=== PATIENT | male | born 1945 | race Caucasian/White ===

== ENCOUNTER 2016-09-12 09:05 | Inpatient (IN) | payer MEDICARE ==
[~2016-09-12] VITALS: Ht 182.9 cm; Wt 74.4 kg
[2016-09-12] VITALS (10 sets, daily range): BP systolic 114–143; BP diastolic 58–66
[~2016-09-12 09:05] MED LIST: BENZ0.5T3; BENZ0.5T3 PO; BENZTROPINE 0.5 MG; DOCU-161 PO; FIBER THERAPY; GLYB5TAB6; IRON18TA PO; LORA0.5T; LORA1TAB PO; METF-380; MTF500T; MULT-608; OMEG1CAP51 PO; OXB5T; PGLT30T; PIOG45TA; POLY17PO6 PO; RISP3TAB17; RISP3TAB3; RISP3TAB3 PO; SIMV20TA3; SIMV20TA3 PO; SITA1TBM7 PO; TRZ100T; ZLP10T; [UNRECOGNIZED DRUG - OTHER]; [UNRECOGNIZED DRUG - REMARK]
--- OUTSIDE RECORDS SUMMARY | 2016-09-12 09:09 | XMS REPORT | Continuity of Care Document ---
Author Author [facility] Organization [facility] Address Unknown Phone Unavailable Allergies Active Description Code Type Severity Reaction Onset Reported/Identified Relationship to Patient Clinical Status Yes No Known Drug Allergies [id number] Drug Allergy Unknown N/ A 10/23/2008 Medications Problems Date Dx Coded Attending Type Code Diagnosis Diagnosed By 06/27/2014 JULIO HANSON, MALINDA R Ot 250.00 06/27/2014 JULIO HANSON, MALINDA R Ot 295.90 06/27/2014 JULIO HANSON, MALINDA R Ot 560.32 06/27/2014 JULIO HANSON, MALINDA R Ot 564.00 06/27/2014 JULIO HANSON, MALINDA R Ot 788.20 06/27/2014 JULIO HANSON, MALINDA R Ot 250.00 06/27/2014 JULIO HANSON, MALINDA R Ot 295.90 06/27/2014 JULIO HANSON, MALINDA R Ot 560.32 06/27/2014 JULIO HANSON, MALINDA R Ot 564.00 06/27/2014 JULIO HANSON, MALINDA R Ot 788.20 07/17/2014 Ot 250.00 07/17/2014 Ot 250.00 07/17/2014 Ot 401.1 07/17/2014 JULIO HANSON, MALINDA R Ot 250.00 07/17/2014 JULIO HANSON, MALINDA R Ot 783.21 07/18/2014 WESTON HANSON, SARA Ot 250.00 07/18/2014 WESTON HANSON, SARA Ot 272.0 07/18/2014 WESTON HANSON, SARA Ot 455.0 07/18/2014 WESTON HANSON, SARA Ot 455.3 07/18/2014 WESTON HANSON, SARA Ot V58.69 07/18/2014 WESTON HANSON, SARA Ot V76.51 03/18/2015 HANH FRANKLIN APRN Ot 250.80 03/18/2015 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 Visit Date/Time Discharge Status Pt. Type Provider Facility Loc./Unit Complaint [id number] 11/28/2015 14:27:00 2015 17:13:00 DIS Emergency HANH FRANKLIN LABOR[employer] [facility] ER [id number] 03/18/2015 11:52:00 2014 14:10:00 DIS Emergency HANH FRANKLIN LABOR[employer] [facility] ER [id number] 07/18/2014 09:51:00 2013 12:30:00 DIS Outpatient SARA ONTIVEROS MD [facility] [id number] 07/17/2014 06:28:00 2013 23:59:59 CLS Outpatient SARA ONTIVEROS MD [facility] PREOP [id number] 06/26/2014 10:29:00 2013 09:25:00 DIS Inpatient MALINDA KIM MD Via [address] [id number] 04/12/2014 09:54:00 2013 23:59:59 CLS Outpatient MALINDA KIM MD [facility] LAB [id number] 04/27/2013 10:34:00 2012 23:59:59 CLS Outpatient MALINDA KIM MD [facility] LAB [id number] 09/12/2016 09:06:00 ACT Emergency KYUNG HANSON, REX Fitch [facility] ER FALL [id number] 12/18/2010 10:26:00 Document Registration [id number] 03/13/2010 10:18:00 Document Registration
[2016-09-12] MEDS ORDERED: NS IV 500 ML 500 ML IV ONE (09:12)
[2016-09-12 10:08] LABS: BASOPHILS % (AUTO) 0 % (0-10); EOSINOPHILS % (AUTO) 0 % (0-10); LYMPHOCYTES # (AUTO) 0.9 X 10^3 (1.0-4.0); LYMPHOCYTES % (AUTO) 6 % (12-44); MEAN CORPUSCULAR HEMOGLOBIN 31 PG (25-34); MEAN CORPUSCULAR HGB CONC 34 G/DL (32-36); MEAN CORPUSCULAR VOLUME 91 FL (80-99); MEAN PLATELET VOLUME 10.5 FL (7.4-10.4); MONOCYTES # (AUTO) 1.8 X 10^3 (0.0-1.0); MONOCYTES % (AUTO) 12 % (0-12); NEUTROPHILS # (AUTO) 12.6 X 10^3 (1.8-7.8); NEUTROPHILS % (AUTO) 83 % (42-75); PLATELET COUNT 228 10^3/uL (130-400); RED BLOOD COUNT 2.16 10^6/uL (4.35-5.85); RED CELL DISTRIBUTION WIDTH 14.4 % (10.0-14.5); WHITE BLOOD COUNT 15.3 10^3/uL (4.3-11.0)
[2016-09-12 10:28] LABS: BILIRUBIN,TOTAL 0.3 MG/DL (0.1-1.0); CALCIUM 8.5 MG/DL (8.5-10.1); CREATININE SERUM 1.65 MG/DL (0.60-1.30); POTASSIUM 4.3 MMOL/L (3.6-5.0); TOTAL PROTEIN 4.9 G/DL (6.4-8.2); hs C REACTIVE PROTEIN 3.39 MG/DL (0.00-0.50)
[2016-09-12 10:43] LABS: LYMPHOCYTES % (MANUAL) 8 %; NEUTROPHILS % (MANUAL) 87 %
--- NOTE | 2016-09-12 10:46 | Diagnostic Imaging Report ---
PROCEDURE: CT head without contrast. TECHNIQUE: Multiple contiguous axial images were obtained through the brain without the use of intravenous contrast. INDICATION: Fall EXAMINATION: CT brain without contrast 09/12/2016 COMPARISON: 03/18/2015 FINDINGS: There is diffuse atrophy. Chronic ischemic changes are noted in periventricular suspicion. No evidence for acute hemorrhage or infarct is seen. There is no mass, mass effect or midline shift. There is no hydrocephalus. Diffuse atrophy is noted. Partial opacification of the visualized sinuses is seen with complete opacification of the visualized left maxillary sinus similar to previous imaging. The opacification within the left maxillary sinus is somewhat hyperdense not consistent with fluid. Clinically correlate perhaps inspissated mucus or some hemorrhage or perhaps a chronic infectious etiology. The visualized mastoid air cells appear clear. IMPRESSION: 1. Chronic changes described. No acute intracranial process. 2. Sinus disease as noted above. Dictated by: Dictated on workstation # [id number]
--- NOTE | 2016-09-12 11:03 | ED General ---
General Chief Complaint: General Problems/Pain Stated Complaint: FALL Nursing Triage Note: c/o generalized weakness with frequent falls. Onset Tu. Nursing Sepsis Screen: No Definite Risk Source of Information: Patient Exam Limitations: No Limitations History of Present Illness Time Seen by Provider: 10:35 Initial Comments Here with report of generalized weakness and frequent falls. This is been going on for the last several days. He has a fall and hit his head from yesterday. There is old blood to the back of the head. He is also complaining of abdominal pain and has significant stomach pain problems frequently and has been taking a lot of antacids. Denies blood in his stool and denies change in stool color. Does report that he is increasingly weak and he falls each time he stands or feels like his done following time he stands. Complains of some left hip pain but is able to stand. Complains of pain to the lumbar region and back on the left side. Timing/Duration: 4-5 Days Severity: Moderate, Severe Associated Systoms: No Chest Pain, No Diaphoresis, No Fever/Chills, No Nausea/ Vomiting, Shortness of Air Weakness Allergies and Home Medications Allergies Coded Allergies: No Known Drug Allergies (Verified , 10/23/08) Home Medications Benztropine Mesylate 0.5 Mg Tablet 0.5 MG PO TID (Reported) Docusate Sodium 100 Mg Capsule 100 MG PO BID (Reported) Iron 18 Mg Tablet 28 MG PO DAILY (Reported) Lorazepam 1 Mg Tab 1 MG PO BID (Reported) [place]-3 Fatty Acids/Fish Oil 1 Each Capsule 1,000 MG PO BID (Reported) Polyethylene Glycol 3350 17 Gm Powd.pack #10 17 GM PO DAILY Prescribed by: HANH FRANKLIN on 11/28/15 8214 Risperidone 3 Mg Tablet 3 MG PO BID (Reported) Simvastatin 20 Mg Tablet 20 MG PO HS (Reported) Sitagliptin Phos/Metformin Hcl 1 Each Tbmp.24hr 1 TAB PO HS (Reported) Constitutional: see HPINo chills, No fever EENTM: no symptoms reportedNo nose congestion, No throat pain Respiratory: no symptoms reported Cardiovascular: no symptoms reported Gastrointestinal: abdominal pain (epigastric) constipationNo dysphagia, No hematemesis, No melena, No vomiting Genitourinary: no symptoms reportedNo dysuria, No hematuria, No pain Musculoskeletal: back pain joint pain Skin: see HPI lesions (abrasions to bilateral knees and toes of both feet.) Psychiatric/Neurological: Weakness Hematologic/Lymphatic: Anemia All Other Systems Reviewed Negative Unless Noted: Yes Past Rrqcnfl-[place] Hx Patient Social History Alcohol Use: Denies Use Recreational Drug Use: No Smoking Status: Never a Smoker Recent Foreign Travel: No Contact w/Someone Who Travel: No Recent Infectious Disease Expo: No Recent Hopitalizations: Yes Immunizations Up To Date Date of Influenza Vaccine: May 02, 2014 Surgeries HX Surgeries: Yes (LEFT ARM - FX REPAIR) Surgeries: Orthopedic Respiratory Hx Respiratory Disorders: No Cardiovascular Hx Cardiac Disorders: No Neurological Hx Neurological Disorders: No Reproductive System Hx Reproductive Disorders: No Genitourinary Hx Genitourinary Disorders: No Gastrointestinal Hx Gastrointestinal Disorders: Yes (Constipation) Musculoskeletal Hx Musculoskeletal Disorders: No Endocrine Hx Endocrine Disorders: Yes Endocrine Disorders: Diabetes, Non-Insulin dep HEENT HX ENT Disorders: No Cancer Hx Cancer: No Psychosocial Hx Psychiatric Problems: Yes Behavioral Health Disorders: Schizophrenia Integumentary HX Skin/Integumentary Disorder: No Blood Transfusions Hx Blood Disorders: No Reviewed Nursing Assessment Reviewed/Agree w Nursing PMH: Yes Family Medical History Significant Family History: No Pertinent Family Hx Family Medial History: Patient reports no known family medical history. Physical Exam Vital Signs Vital Sign - Last 12Hours 09/12/16 09:10 Temp 97.2 Pulse 110 Resp 16 B/P 96/57 Pulse Ox 98 O2 Delivery Room Air Capillary Refill : Less Than 3 Seconds General Appearance: No Apparent Distress WD/WN HEENT: PERRL/EOMI Pharynx Normal Neck: Full Range of Motion Non Tender Supple Respiratory: Lungs Clear Normal Breath Sounds Cardiovascular: Regular Rate, Rhythm No Murmur Gastrointestinal: Soft Distended Tenderness (global) Genital/Rectal: Heme Negative Stool Back: Normal Inspection No CVA Tenderness No Vertebral Tenderness Extremity: Non Tender No Calf Tenderness Neurologic/Psychiatric: Alert Oriented x3 No Motor/Sensory Deficits Skin: Warm/Dry Pallor Other (abrasions to both knees and noted on the outer aspect of toes bilateral.) Progress/Results/Core Measures Results/Orders Lab Results Laboratory Tests Test 09/12/16 10:00 09/12/16 12:00 Range/Units Alanine Aminotransferase (ALT/SGPT) 102 H 0-55 U/L Albumin 3.0 L 3.2-4.5 G/DL Alkaline Phosphatase 48 40-136 U/L Anion Gap 12 5-14 MMOL/L Aspartate Amino Transf (AST/SGOT) 98 H 5-34 U/L BUN/Creatinine Ratio 43 Basophils # (Auto) 0.0 0.0-0.1 10^3/uL Basophils (%) (Auto) 0 0-10 % Blood Morphology Comment NORMAL Blood Urea Nitrogen 71 H 7-18 MG/DL C-Reactive Protein High Sensitivity 3.39 H 0.00-0.50 MG/DL Calcium Level 8.5 8.5-10.1 MG/DL Carbon Dioxide Level 19 L 21-32 MMOL/L Chloride Level 107 98-107 MMOL/L Creatinine 1.65 H 0.60-1.30 MG/DL Eosinophils # (Auto) 0.0 0.0-0.3 10^3/uL Eosinophils (%) (Auto) 0 0-10 % Estimat Glomerular Filtration Rate 41 Glucose Level 253 H 70-105 MG/DL Hematocrit 20 *L 40-54 % Hemoglobin 6.6 *L 13.3-17.7 G/DL Lymphocytes # (Auto) 0.9 L 1.0-4.0 X 10^3 Lymphocytes % (Manual) 8 % Lymphocytes (%) (Auto) 6 L 12-44 % Mean Corpuscular Hemoglobin 31 25-34 PG Mean Corpuscular Hemoglobin Concent 34 32-36 G/DL Mean Corpuscular Volume 91 80-99 FL Mean Platelet Volume 10.5 H 7.4-10.4 FL Monocytes # (Auto) 1.8 H 0.0-1.0 X 10^3 Monocytes % (Manual) 5 % Monocytes (%) (Auto) 12 0-12 % Neutrophils # (Auto) 12.6 H 1.8-7.8 X 10^3 Neutrophils % (Manual) 87 % Neutrophils (%) (Auto) 83 H 42-75 % Platelet Count 228 130-400 10^3/uL Potassium Level 4.3 3.6-5.0 MMOL/L Red Blood Count 2.16 L 4.35-5.85 10^6/uL Red Cell Distribution Width 14.4 10.0-14.5 % Sodium Level 138 135-145 MMOL/L Total Bilirubin 0.3 0.1-1.0 MG/DL Total Protein 4.9 L 6.4-8.2 G/DL White Blood Count 15.3 H 4.3-11.0 10^3/uL Urine Bacteria NEGATIVE /HPF Urine Bilirubin NEGATIVE NEGATIVE Urine Casts NONE /LPF Urine Clarity CLEAR Urine Color YELLOW Urine Crystals NONE /LPF Urine Culture Indicated NO Urine Glucose (UA) 2+ H NEGATIVE Urine Ketones NEGATIVE NEGATIVE Urine Leukocyte Esterase NEGATIVE NEGATIVE Urine Mucus NEGATIVE /LPF Urine Nitrite NEGATIVE NEGATIVE Urine Protein 1+ H NEGATIVE Urine RBC RARE /HPF Urine RBC (Auto) NEGATIVE NEGATIVE Urine Specific [place] 1.005 L 1.016-1.022 Urine Squamous Epithelial Cells RARE /HPF Urine Urobilinogen NORMAL NORMAL MG/DL Urine WBC NONE /HPF Urine pH 6 5-9 My Orders Orders-REX TRACEY MD Cbc With Automated Diff (09/12/16 09:12) Comprehensive Metabolic Panel (09/12/16 09:12) Hs C Reactive Protein (09/12/16 09:12) Ua Culture If Indicated (09/12/16 09:12) Ct Head Wo (09/12/16 09:12) Saline Lock/Iv-Start (09/12/16 09:12) Ns Iv 500 Ml (Sodium Chloride 0.9%) (09/12/16 09:12) Manual Differential (09/12/16 10:00) Red Cells Leukocytes Reduced (09/12/16 10:27) Type And Screen (09/12/16 10:27) Ct Abdomen/Pelvis Wo (09/12/16 10:56) Pelvis (09/12/16 11:07) Chest 1 View, Ap/Pa Only (09/12/16 11:12) Medications Given in ED Current Medications Medications Dose Ordered Sig/Aron Route Start Time Stop Time Status Last Admin Dose Admin Sodium Chloride 500 ml @ 0 mls/hr Q0M ONCE IV 09/12/16 09:12 09/12/16 09:13 DC 09/12/16 10:42 0 MLS/HR Vital Signs/I&O Vital Sign - Last 12Hours 09/12/16 09:10 Temp 97.2 Pulse 110 Resp 16 B/P 96/57 Pulse Ox 98 O2 Delivery Room Air Blood Pressure Mean: 70 Progress Note : Progress Note Seen and evaluated. IV, labs and UA ordered. CT head ordered. X-ray of the chest and pelvis ordered. CT abdomen and pelvis ordered due to anemia and complaining of left-sided abdominal and left back pain. Monitor patient. Type and cross for 2 units to give. Hemoccult stool was negative. Patient has significant constipation. I did discuss the case with Dr. Rojas at 1206. He accepts patient for admission. We did review CT findings including rib fractures that appear more chronic than acute. Also discussed L1 transverse process fracture. We will admit the patient to a stepdown and have blood administration done there. Discussed with patient and family who agree with plan. Admit, inpatient status. I did discuss with Dr. Rojas related to rib fractures and questionable trauma consult. Patient is not tender in the area of ribs of concern and this does appear to be chronic and likely related to previous falls. Patient has history of multiple falls acutely and chronically. Diagnostic Imaging Diagonstic Imaging: CT Plain Films/CT/US/NM/MRI: abdomen, pelvis Comments [facility] [place], [place] NAME: [facility] REC#: [id number] PT STATUS: REG ER : 1945 PHYSICIAN: REX TRACEY MD ADMIT DATE: 09/12/16/ER Draft Date of Exam:09/12/16 CT ABDOMEN/PELVIS WO PROCEDURE: CT abdomen and pelvis without contrast. TECHNIQUE: Multiple contiguous axial images were obtained through the abdomen and pelvis without the use of intravenous contrast. INDICATION: Patient fell, pain, severe anemia. EXAMINATION: CT abdomen and pelvis without contrast 09/12/2016 COMPARISON: None available. Urinary bladder is markedly distended perhaps due to bladder outlet obstruction, clinical correlation is recommended. There is a large amount f stool throughout the colon especially within the rectosigmoid perhaps due to fecal impaction. Appendix is unremarkable without surrounding inflammatory change. There is no focal inflammatory change about the remaining bowel loops. The nonopacified abdominal viscera limited in evaluation. No gross acute abnormalities appreciated within the liver or spleen. The adrenal glands are unremarkable. The pancreas is atrophied. The stomach is distended and filled with fluid. The duodenal wall demonstrates wall thickening with adjacent questioned fat stranding. This predominantly involves the first and second portions of the duodenum. No adjacent free air is appreciated. There is no definite evidence for abscess although evaluation is limited due to the lack of contrast. There is no acute process noted in either kidney. There is diffuse atherosclerotic disease along course of the aorta. No free air or free fluid noted. Diffuse degenerative findings noted. There is a transverse process fracture on the left at L1 without significant displacement. A fracture of the adjacent left posterior 12th rib is nondisplaced but suspected. Possible nondisplaced fracture of the left 10th and/or 11th ribs posteriorly also noted. There are no compression deformities within the visualized spine. Remaining visualized osseous structures appear to be intact. No definite acute pelvic fracture seen however if there is focal pain dedicated CT pelvis using a bone algorithm technique would be recommended. Small bilateral pleural effusions are noted. The visualized lung bases limited in evaluation due to motion. No definite acute abnormalities appreciated. Minimal bibasal or dependent atelectasis is noted. IMPRESSION: 1. Acute appearing left transverse process fracture at L1 with adjacent left posterior lower rib fractures also noted but nondisplaced. 2. Mild bibasal dependent atelectasis with some very small bilateral pleural effusions left slightly larger than right. 3. Fat stranding about the duodenum. Given history of trauma, this could be due to posttraumatic change/contusion hematoma. Duodenitis could cause this appearance as well, clinical correlation and followup is recommended. 4. Findings of marked constipation. 5. Markedly dilated urinary bladder, correlate clinically for process such as a bladder outlet obstruction. Other incidental findings as discussed above. Dictated on workstation # [id number] Dict: 09/12/16 1119 Trans: 09/12/16 1133 [facility] [id number] Interpreted by: SHAWN GONSALVES MD Electronically signed by: [email or web address] Imaging: CT Plain Films/CT/US/NM/MRI: head Comments [facility]. [place], [place] NAME: [facility] REC#: [id number] PT STATUS: REG ER : 1945 PHYSICIAN: REX TRACEY MD ADMIT DATE: 09/12/16/ER Draft Date of Exam:09/12/16 CT HEAD WO PROCEDURE: CT head without contrast. TECHNIQUE: Multiple contiguous axial images were obtained through the brain without the use of intravenous contrast. INDICATION: Fall EXAMINATION: CT brain without contrast 09/12/2016 COMPARISON: 03/18/2015 FINDINGS: There is diffuse atrophy. Chronic ischemic changes are noted in periventricular suspicion. No evidence for acute hemorrhage or infarct is seen. There is no mass, mass effect or midline shift. There is no hydrocephalus. Diffuse atrophy is noted. Partial opacification of the visualized sinuses is seen with complete opacification of the visualized left maxillary sinus similar to previous imaging. The opacification within the left maxillary sinus is somewhat hyperdense not consistent with fluid. Clinically correlate perhaps inspissated mucus or some hemorrhage or perhaps a chronic infectious etiology. The visualized mastoid air cells appear clear. IMPRESSION: 1. Chronic changes described. No acute intracranial process. 2. Sinus disease as noted above. Dictated on workstation # [id number] Dict: 09/12/16 1032 Trans: 09/12/16 1046 [facility] [id number] Interpreted by: SHAWN GONSALVES MD Electronically signed by: Diagonstic Imaging: Xray Plain Films/CT/US/NM/MRI: chest Comments [facility] [place] [place] [facility] REC#: [id number] PT STATUS: REG ER : 1945 PHYSICIAN: REX TRACEY MD ADMIT DATE: 09/12/16/ER Draft Date of Exam:09/12/16 CHEST 1 VIEW, AP/PA ONLY EXAM: CHEST 1 VIEW, AP/PA ONLY INDICATION: Fall. COMPARISON: Chest radiograph 11/28/2015. FINDINGS: Normal heart size and pulmonary vascularity. Elevation of the right hemidiaphragm, increased since the prior exam. Chronic right rib fractures. No acute rib fractures. No focal pulmonary opacity, pleural effusion or pneumothorax. IMPRESSION: 1. No acute fractures identified. There are chronic right rib fractures. 2. Elevation of the right hemidiaphragm has progressed since the prior exam. Dictated on workstation # [id number] Dict: 09/12/16 1129 Trans: 09/12/16 1137 [facility] [id number] Interpreted by: VERNA COLLADO MD Electronically signed by: [email or web address] Imaging: Xray Plain Films/CT/US/NM/MRI: pelvis Comments [facility] [place] [place] [facility] REC#: [id number] PT STATUS: REG ER : 1945 PHYSICIAN: REX TRACEY MD ADMIT DATE: 09/12/16/ER Draft Date of Exam:09/12/16 PELVIS INDICATION: Fell, pain. EXAMINATION: Plain films of the pelvis 09/12/2016. FINDINGS: There is mild possible lucency noted in the suprapubic rami bilaterally. Correlation with recent CT performed the same date does demonstrate mild irregularity in that region although there is motion artifact. Correlate for any point tenderness. No adjacent soft tissue edema seen on CT. The remaining osseous structures appear intact. There are no dislocations. The visualized proximal femurs unremarkable. Findings of marked constipation in visualized abdomen. IMPRESSION: 1. Vague lucencies noted along the suprapubic rami bilaterally. See above discussion. If there is focal point tenderness, nondisplaced fractures are possible. The remaining pelvis is unremarkable. Dictated on workstation # [id number] Dict: 09/12/16 1128 Trans: 09/12/16 1134 KB [id number] Interpreted by: SHAWN GONSALVES MD Electronically signed by: Departure Communication Time/Spoke to Admitting Phy: 12:06 Impression Impression: Primary Impression: Profound anemia Qualified Code: D50.9 - Iron deficiency anemia, unspecified Additional Impressions: GI bleed Qualified Code: K92.2 - Gastrointestinal hemorrhage, unspecified Lumbar transverse process fracture Qualified Code: S32.008A - Other fracture of unspecified lumbar vertebra, initial encounter for closed fracture Fracture of ribs, multiple, closed Qualified Code: S22.43XA - Multiple fractures of ribs, bilateral, initial encounter for closed fracture Disposition: ADMITTED INPATIENT Condition: Stable Decision to Admit Reason: Admit from ER (General) Decision to Admit/Date: Sep 12, 2016 Time/Decision to Admit Time: 12:06 Departure-Patient Inst. Referrals: MALINDA KIM MD (PCP/Family) Primary Care Physician REX TRACEY MD Sep 12, 2016 11:03
--- NOTE | 2016-09-12 11:34 | Diagnostic Imaging Report ---
INDICATION: Fell, pain. EXAMINATION: Plain films of the pelvis 09/12/2016. FINDINGS: There is mild possible lucency noted in the suprapubic rami bilaterally. Correlation with recent CT performed the same date does demonstrate mild irregularity in that region although there is motion artifact. Correlate for any point tenderness. No adjacent soft tissue edema seen on CT. The remaining osseous structures appear intact. There are no dislocations. The visualized proximal femurs unremarkable. Findings of marked constipation in visualized abdomen. IMPRESSION: 1. Vague lucencies noted along the suprapubic rami bilaterally. See above discussion. If there is focal point tenderness, nondisplaced fractures are possible. The remaining pelvis is unremarkable. Dictated by: Dictated on workstation # [id number]
--- NOTE | 2016-09-12 11:34 | Diagnostic Imaging Report ---
PROCEDURE: CT abdomen and pelvis without contrast. TECHNIQUE: Multiple contiguous axial images were obtained through the abdomen and pelvis without the use of intravenous contrast. INDICATION: Patient fell, pain, severe anemia. EXAMINATION: CT abdomen and pelvis without contrast 09/12/2016 COMPARISON: None available. Urinary bladder is markedly distended perhaps due to bladder outlet obstruction, clinical correlation is recommended. There is a large amount f stool throughout the colon especially within the rectosigmoid perhaps due to fecal impaction. Appendix is unremarkable without surrounding inflammatory change. There is no focal inflammatory change about the remaining bowel loops. The nonopacified abdominal viscera limited in evaluation. No gross acute abnormalities appreciated within the liver or spleen. The adrenal glands are unremarkable. The pancreas is atrophied. The stomach is distended and filled with fluid. The duodenal wall demonstrates wall thickening with adjacent questioned fat stranding. This predominantly involves the first and second portions of the duodenum. No adjacent free air is appreciated. There is no definite evidence for abscess although evaluation is limited due to the lack of contrast. There is no acute process noted in either kidney. There is diffuse atherosclerotic disease along course of the aorta. No free air or free fluid noted. Diffuse degenerative findings noted. There is a transverse process fracture on the left at L1 without significant displacement. A fracture of the adjacent left posterior 12th rib is nondisplaced but suspected. Possible nondisplaced fracture of the left 10th and/or 11th ribs posteriorly also noted. There are no compression deformities within the visualized spine. Remaining visualized osseous structures appear to be intact. No definite acute pelvic fracture seen however if there is focal pain dedicated CT pelvis using a bone algorithm technique would be recommended. Small bilateral pleural effusions are noted. The visualized lung bases limited in evaluation due to motion. No definite acute abnormalities appreciated. Minimal bibasal or dependent atelectasis is noted. IMPRESSION: 1. Acute appearing left transverse process fracture at L1 with adjacent left posterior lower rib fractures also noted but nondisplaced. 2. Mild bibasal dependent atelectasis with some very small bilateral pleural effusions left slightly larger than right. 3. Fat stranding about the duodenum. Given history of trauma, this could be due to posttraumatic change/contusion hematoma. Duodenitis could cause this appearance as well, clinical correlation and followup is recommended. 4. Findings of marked constipation. 5. Markedly dilated urinary bladder, correlate clinically for process such as a bladder outlet obstruction. Other incidental findings as discussed above. Dictated by: Dictated on workstation # [id number]
--- NOTE | 2016-09-12 11:37 | Diagnostic Imaging Report ---
EXAM: CHEST 1 VIEW, AP/PA ONLY INDICATION: Fall. COMPARISON: Chest radiograph 11/28/2015. FINDINGS: Normal heart size and pulmonary vascularity. Elevation of the right hemidiaphragm, increased since the prior exam. Chronic right rib fractures. No acute rib fractures. No focal pulmonary opacity, pleural effusion or pneumothorax. IMPRESSION: 1. No acute fractures identified. There are chronic right rib fractures. 2. Elevation of the right hemidiaphragm has progressed since the prior exam. Dictated by: Dictated on workstation # [id number]
[2016-09-12 12:11] LABS: BILIRUBIN,URINE NEGATIVE (NEGATIVE); KETONES,URINE NEGATIVE (NEGATIVE); LEUKOCYTE ESTERASE ,URINE NEGATIVE (NEGATIVE); NITRITE,URINE NEGATIVE (NEGATIVE); PH,URINE 6 (5-9); PROTEIN,URINE 1+ (NEGATIVE); UROBILINOGEN,URINE NORMAL (NORMAL)
[2016-09-12 12:18] LABS: SQUAMOUS EPITHELIAL CELL,UR RARE /HPF
[2016-09-12] MEDS ORDERED: PANTOPRAZOLE 40 MG/10 ML (PROTONIX) VIAL IV NR (13:00)
[2016-09-12] MEDS ORDERED: CATHETER FLUSH 10 ML SYR IV PRN (13:15)
[2016-09-12] MEDS ORDERED: NS IV 500 ML 500 ML ONE (13:28)
[2016-09-12] MEDS: CATHETER FLUSH 10 ML SYR IV SCH ×2 (13:39→20:08)
[2016-09-12] MEDS: NS IV 1000 ML 1,000 ML IV SCH (13:45)
[2016-09-12] MEDS: inSUlin (REGULAR) HUMAN 1 UNIT/0.01 ML (CHARGE PER UNIT) SC SCH ×2 (15:52→20:07)
[2016-09-12] MEDS: BENZTROPINE MESYLATE 1 MG (COGENTIN) TAB PO SCH (20:07)
[2016-09-12] MEDS: PANTOPRAZOLE 40 MG/10 ML (PROTONIX) VIAL IV SCH (20:07)
[2016-09-12] MEDS: LORazepam 1 MG (ATIVAN) TAB PO SCH (20:07)
[2016-09-12] MEDS: sitaGLIPtin 50 MG (JANUVIA) TAB PO SCH (20:08)
[2016-09-12] MEDS: risperiDONE 1 MG (RisperDAL) TAB PO SCH (20:08)
[2016-09-12] MEDS ORDERED: risperiDONE 2 MG (RisperDAL) TAB PO SCH (21:00)
[2016-09-12] MEDS ORDERED: SUCCINYLCHOLINE INJ 100 MG/5 ML SYR INJ ONE (23:59)
[2016-09-12] MEDS ORDERED: ETOMIDATE IV SOLN 20 MG/10 ML VIAL IV ONE (23:59)
[2016-09-13] VITALS (12 sets, daily range): BP systolic 108–135; BP diastolic 54–69
[2016-09-13] MEDS: NS IV 1000 ML 1,000 ML IV SCH ×2 (02:00→16:34)
[2016-09-13 03:51] LABS: BASOPHILS % (AUTO) 0 % (0-10); EOSINOPHILS # (AUTO) 0.1 10^3/uL (0.0-0.3); EOSINOPHILS % (AUTO) 1 % (0-10); LYMPHOCYTES # (AUTO) 1.5 X 10^3 (1.0-4.0); LYMPHOCYTES % (AUTO) 12 % (12-44); MEAN CORPUSCULAR HEMOGLOBIN 30 PG (25-34); MEAN CORPUSCULAR HGB CONC 34 G/DL (32-36); MEAN CORPUSCULAR VOLUME 89 FL (80-99); MEAN PLATELET VOLUME 10.6 FL (7.4-10.4); MONOCYTES # (AUTO) 1.5 X 10^3 (0.0-1.0); MONOCYTES % (AUTO) 11 % (0-12); NEUTROPHILS % (AUTO) 76 % (42-75); PLATELET COUNT 199 10^3/uL (130-400); RED BLOOD COUNT 2.69 10^6/uL (4.35-5.85); RED CELL DISTRIBUTION WIDTH 15.8 % (10.0-14.5); WHITE BLOOD COUNT 13.1 10^3/uL (4.3-11.0)
[2016-09-13 04:15] LABS: ALBUMIN 2.8 G/DL (3.2-4.5); BILIRUBIN,TOTAL 0.4 MG/DL (0.1-1.0); CALCIUM 8.1 MG/DL (8.5-10.1); CREATININE SERUM 1.57 MG/DL (0.60-1.30); POTASSIUM 4.1 MMOL/L (3.6-5.0); TOTAL PROTEIN 4.5 G/DL (6.4-8.2)
[2016-09-13 04:35] LABS: BAND NEUTROPHILS 7 %; EOSINOPHILS % (MANUAL) 1 %; LYMPHOCYTES % (MANUAL) 11 %; NEUTROPHILS % (MANUAL) 73 %
[2016-09-13 05:39] LABS: PHOSPHORUS 2.7 MG/DL (2.3-4.7)
[2016-09-13] MEDS: CATHETER FLUSH 10 ML SYR IV SCH ×3 (06:00→22:00)
[2016-09-13] MEDS: inSUlin (REGULAR) HUMAN 1 UNIT/0.01 ML (CHARGE PER UNIT) SC SCH ×4 (06:37→21:02)
[2016-09-13] MEDS: PANTOPRAZOLE 40 MG/10 ML (PROTONIX) VIAL IV SCH ×2 (08:52→21:03)
[2016-09-13] MEDS: BENZTROPINE MESYLATE 1 MG (COGENTIN) TAB PO SCH ×2 (08:53→21:03)
[2016-09-13] MEDS: risperiDONE 1 MG (RisperDAL) TAB PO SCH ×2 (08:53→21:03)
[2016-09-13] MEDS: LORazepam 1 MG (ATIVAN) TAB PO SCH ×2 (08:53→21:03)
--- NOTE | 2016-09-13 09:02 | Diagnostic Imaging Report ---
EXAM: CHEST 1 VIEW, AP/PA ONLY INDICATION: Fall. COMPARISON: Chest radiograph 09/12/2016. FINDINGS: Normal heart size and pulmonary vascularity. Elevation of the right hemidiaphragm is less prominent today. No focal pulmonary opacity, pleural effusion or pneumothorax. Chronic right rib fractures. No acute rib fractures. IMPRESSION: No acute cardiopulmonary findings. Dictated by: Dictated on workstation # [id number]
[2016-09-13] MEDS ORDERED: POLYETHYLENE GLYCOL 17 GM (MIRALAX) PACK PO NR (10:30)
[2016-09-13] MEDS ORDERED: SENNA W/DOCUSATE (SENOKOT S) TABLET PO NR (10:30)
--- NOTE | 2016-09-13 10:34 | History & Physical-Hospitalist ---
HPI History of Present Illness: HPI/Chief Complaint the patient is a 70-year-old white male who is a very poor historian. Additional history is obtained from caregiver who is the bedside. He is alert and pleasant but apparently has been falling reporting increased weakness and fatigue over the past several weeks. He is apparently been having increased abdominal pain at least partially relieved by antacids. He has chronic problems with constipation but could not tell me whether or not he is noted any melena or bright red blood per rectum. He does believe that he has had ulcers in the past. He does not recall whether or not he's had any bleeding issues. He did undergo colonoscopy 2 years ago that revealed diverticular disease was not done for bleeding but he did have anemia at the time no potential bleeding sites were identified. He was having constipation problems at that time. He denies chills fever or night sweats and is had no nausea vomiting or hematemesis. He denies difficulty swallowing and denies intestinal cramping.he also denies odynophagia. Date Seen 09/13/16 Attending Physician Vale Cline MD PCP Toño Fung MD Referring Physician Date of Admission Sep 12, 2016 at 12:36 Home Medications & Allergies Home Medications Reviewed patient Home Medication Reconciliation Form Allergies Coded Allergies: No Known Drug Allergies (Verified , 10/23/08) Past Saybivl-Dlmhnh-Rssfzp Hx Patient Social History Alcohol Use: Denies Use Recreational Drug Use: No Smoking Status: Never a Smoker Physical Abuse Screen: No Sexual Abuse: No Recent Foreign Travel: No Contact w/other who traveled: No Recent Hopitalizations: Yes Recent Infectious Disease Expo: No Immunizations Up To Date Date of Influenza Vaccine: May 02, 2016 Seasonal Allergies Seasonal Allergies: No Surgeries HX Surgeries: Yes (LEFT ARM - FX REPAIR) Surgeries: Orthopedic Respiratory Hx Respiratory Disorders: No Cardiovascular Hx Cardiovascular Disorders: No Neurological Hx Neurological Disorders: No Reproductive System Hx Reproductive Disorders: No Genitourinary Hx Genitourinary Disorders: No Genitourinary Disorders: UTI-Chronic Gastrointestinal Hx Gastrointestinal Disorders: Yes (Constipation) Musculoskeletal Hx Musculoskeletal Disorders: No Endocrine Hx Endocrine Disorders: Yes Endocrine Disorders: Diabetes, Non-Insulin dep HEENT HX ENT Disorders: No Cancer Hx Cancer: No Psychosocial Hx Psychiatric Problems: Yes Behavioral Health Disorders: Anxiety, Schizophrenia Integumentary HX Skin/Integumentary Disorder: No Blood Transfusions Hx Blood Disorders: No Adverse Reaction to a Blood Tr: No Reviewed Nursing Assessment Reviewed/Agree w Nursing PMH: Yes Family Medical History Significant Family History: No Pertinent Family Hx Family Hx: Patient reports no known family medical history. Review of Systems Constitutional: see HPI Gastrointestinal: see HPI Musculoskeletal: back pain (lumbar after one of the falls he sustained in the past week. He denies radicular component to this.) Physical Exam Physical Exam Vital Signs Vital Sign - Last 12Hours 09/12/16 09:10 Temp 97.2 Pulse 110 Resp 16 B/P 96/57 Pulse Ox 98 O2 Delivery Room Air Capillary Refill : Less Than 3 Seconds General Appearance: No Apparent Distress Anxious Chronically ill Respiratory: Chest Non Tender Lungs Clear Normal Breath Sounds No Accessory Muscle Use No Respiratory Distress Cardiovascular: Regular Rate, Rhythm No Edema No Gallop No JVD No Murmur Normal Peripheral Pulses Gastrointestinal: Normal Bowel Sounds No Organomegaly No Pulsatile Mass Non Tender Soft Distended (mild) Rectal: Deferred Back: Other (mild upper lumbar discomfort to palpation) Extremity: Normal Capillary Refill Normal Inspection Normal Range of Motion Non Tender Neurologic/Psychiatric: Alert Skin: Pallor Results Results/Procedures Lab Laboratory Tests 09/12/16 10:00 09/12/16 20:43 09/13/16 03:42 Assessment/Plan Admission Diagnosis 1. Upper GI bleed with CT findings duodenal ulcer is likely I suspect bleeding has ceased we'll give another 2 units of packed cells repeat an H&H in the morning and is stable we will likely discharge to perform an EGD Wednesday. We'll continue proton pump inhibitor therapy and avoid aspirin and nonsteroidal therapy. 2. Chronic constipation will initiate Senokot S and MiraLAX. 3. Opacification of left maxillary sinus without history or physical exam findings to suggest sinusitis either chronic retention cyst or more acute trauma with hemorrhage is more likely monitor conservatively for now. 4. Schizophrenia continue baseline antipsychotic therapy. Copy Copies To 1: TOÑO FUNG MD Clinical Quality Measures DVT/VTE Risk/Contraindication: Risk Factor Score Per Nursin RFS Level Per Nursing on Admit: 4+=Very High VALE CLINE MD Sep 13, 2016 10:34
[2016-09-13] MEDS: sitaGLIPtin 50 MG (JANUVIA) TAB PO SCH (21:03)
[2016-09-13] MEDS: SENNA W/DOCUSATE (SENOKOT S) TABLET PO SCH (21:04)
[2016-09-13] MEDS: POLYETHYLENE GLYCOL 17 GM (MIRALAX) PACK PO SCH (21:04)
[2016-09-14] VITALS (9 sets, daily range): BP systolic 92–122; BP diastolic 39–66
[2016-09-14 02:36] LABS: BASOPHILS # (AUTO) 0.2 10^3/uL (0.0-0.1); BASOPHILS % (AUTO) 1 % (0-10); EOSINOPHILS # (AUTO) 0.3 10^3/uL (0.0-0.3); EOSINOPHILS % (AUTO) 1 % (0-10); LYMPHOCYTES % (AUTO) 16 % (12-44); MEAN CORPUSCULAR HEMOGLOBIN 31 PG (25-34); MEAN CORPUSCULAR HGB CONC 35 G/DL (32-36); MEAN CORPUSCULAR VOLUME 89 FL (80-99); MEAN PLATELET VOLUME 10.6 FL (7.4-10.4); MONOCYTES # (AUTO) 2.2 X 10^3 (0.0-1.0); MONOCYTES % (AUTO) 12 % (0-12); NEUTROPHILS # (AUTO) 13.4 X 10^3 (1.8-7.8); NEUTROPHILS % (AUTO) 71 % (42-75); PLATELET COUNT 181 10^3/uL (130-400); RED BLOOD COUNT 2.17 10^6/uL (4.35-5.85); RED CELL DISTRIBUTION WIDTH 15.3 % (10.0-14.5)
[2016-09-14 02:53] LABS: CALCIUM 7.4 MG/DL (8.5-10.1); CREATININE SERUM 1.61 MG/DL (0.60-1.30); POTASSIUM 4.3 MMOL/L (3.6-5.0)
[2016-09-14] MEDS: NS IV 1000 ML 1,000 ML IV SCH ×2 (05:45→08:22)
[2016-09-14] MEDS: CATHETER FLUSH 10 ML SYR IV SCH ×3 (06:00→20:32)
[2016-09-14] MEDS: inSUlin (REGULAR) HUMAN 1 UNIT/0.01 ML (CHARGE PER UNIT) SC SCH ×4 (06:00→19:30)
[2016-09-14 08:15] LABS: MEAN PLATELET VOLUME 9.9 FL (7.4-10.4); RED BLOOD COUNT 2.95 10^6/uL (4.35-5.85); RED CELL DISTRIBUTION WIDTH 14.7 % (10.0-14.5); WHITE BLOOD COUNT 14.8 10^3/uL (4.3-11.0)
[2016-09-14] MEDS: PANTOPRAZOLE 40 MG/10 ML (PROTONIX) VIAL IV SCH (08:16)
[2016-09-14] MEDS: BENZTROPINE MESYLATE 1 MG (COGENTIN) TAB PO SCH ×2 (08:16→20:31)
[2016-09-14] MEDS: LORazepam 1 MG (ATIVAN) TAB PO SCH ×2 (08:16→20:31)
[2016-09-14] MEDS: risperiDONE 1 MG (RisperDAL) TAB PO SCH ×2 (08:16→20:31)
[2016-09-14] MEDS: SENNA W/DOCUSATE (SENOKOT S) TABLET PO SCH ×2 (08:19→20:31)
--- NOTE | 2016-09-14 08:50 | Progress Note-Hospitalist ---
Subjective HPI/CC On Admission the patient is a 70-year-old white male who is a very poor historian. Additional history is obtained from caregiver who is the bedside. He is alert and pleasant but apparently has been falling reporting increased weakness and fatigue over the past several weeks. He is apparently been having increased abdominal pain at least partially relieved by antacids. He has chronic problems with constipation but could not tell me whether or not he is noted any melena or bright red blood per rectum. He does believe that he has had ulcers in the past. He does not recall whether or not he's had any bleeding issues. He did undergo colonoscopy 2 years ago that revealed diverticular disease was not done for bleeding but he did have anemia at the time no potential bleeding sites were identified. He was having constipation problems at that time. He denies chills fever or night sweats and is had no nausea vomiting or hematemesis. He denies difficulty swallowing and denies intestinal cramping.he also denies odynophagia. Date Seen 09/14/16 Subjective/Events-last exam The patient had been doing well up until around 2 a.m. when I was notified by nursing staff that he had a presyncopal event with diaphoresis while attempting to urinate at the bedside commode. He was tachycardic and hypotensive with pallor. An H&H was obtained and it was back down to the mid 6 range. He received a fluid bolus in order for 2 units of packed cells which were administered with resolution of tachycardia and improvement in systolic blood pressure back over 90 with mean arterial pressures back over 65. Patient denies abdominal pain and there had been no reported bowel movements. He has a long-standing history of chronic constipation. I did discuss his case with Dr. Boswell who is in the endoscopy lab. He will be taking the patient for upper endoscopy later this morning considering his symptoms and CT scanning bleeding duodenal ulcer is high on the differential diagnostic list. Objective Exam Vital Signs Vital Sign - Last 12Hours 09/12/16 09:10 Temp 97.2 Pulse 110 Resp 16 B/P 96/57 Pulse Ox 98 O2 Delivery Room Air Capillary Refill : Less Than 3 Seconds General Appearance: Anxious Respiratory: Lungs Clear Normal Breath Sounds No Accessory Muscle Use No Respiratory Distress Cardiovascular: Regular Rate, Rhythm No Edema No Gallop No JVD No Murmur Normal Peripheral Pulses Other (Heart rate 92 and regular) Gastrointestinal: Normal Bowel Sounds Other (Mild distention abdomen is soft there is no tenderness to palpation.) Results/Procedures Lab Laboratory Tests 09/14/16 02:27 09/14/16 08:05 Assessment/Plan Assessment and Plan Assess & Plan/Chief Complaint 1. Recurrent upper GI bleed despite twice a day proton pump inhibitor therapy. Dr. Boswell has been consulted and will be performing upper endoscopy later today. Currently the patient is hemodynamically stable and after 2 units of packed cells H&H's back up to 8.8 we'll repeat another H&H in 2 hours. VALE CLINE MD Sep 14, 2016 08:50
[2016-09-14] MEDS ORDERED: MIDAZOLAM 2 MG/2 ML (VERSED) VIAL ONE (09:07)
[2016-09-14] MEDS ORDERED: fentaNYL INJECTION 100 MCG/2 ML AMP ONE (09:07)
[2016-09-14] MEDS ORDERED: NALOXONE 0.4 MG/ML 1 ML (NARCAN) VIAL ONE (09:13)
[2016-09-14] MEDS ORDERED: FLUMAZENIL (ROMAZICON) 0.1 MG/ML 5 ML VIAL ONE (09:13)
[2016-09-14] MEDS ORDERED: EPINEPHrine INJECTION 1 MG/ML AMP ONE (09:27)
--- NOTE | 2016-09-14 10:03 | Pre-Op Note & Conscious Sedat ---
Pre-Operative Progress Note H&P Reviewed The H&P was reviewed, patient examined and no changes noted. Date H&P Reviewed: Sep 14, 2016 Time H&P Reviewed: 09:10 Pre-Op Diagnosis: upper GI bleeding Conscious Sedation Pre-Proced ASA Class: 3 Airway Mallampati Classification: ([place] appropriate class) I. II. III, IV Lungs Heart ASA score ASA 1: a normal healthy patient ASA 2: a patient with a mild systemic disease (mid diabetes, controlled hypertension, obesity ASA 3: a patient with a severe systemic disease that limits activity (angina , COPD, prior Myocardial infarction) ASA 4: a patient with an incapacitating disease that is a constant threat to life (CHF, renal failure) ASA 5: a moribund patient not expected to survive 24 hrs. (ruptured aneurysm) ASA 6: a declared brain patient whose organs are being harvested. For emergent operations, add the letter E after the classification Grade 2 Sedation Plan: Discussed options with patient/fam Note The patient is an appropriate candidate to undergo the planned procedure, sedation, and anesthesia. The patient immediately re-assessed prior to indication. PHUONG RODRIGUEZ MD Sep 14, 2016 10:03
--- NOTE | 2016-09-14 10:04 | Progress Note-Post Operative ---
Post-Operative Progess Note Pre-Operative Diagnosis upper GI bleeding Post-Operative Diagnosis tortuous esophagus with a Schatzki ring Distal gastritis 15 mm chronic duodenal ulcer at the bulb with oozing Post-Op Procedure Note Date of Procedure: Sep 14, 2016 Name of Procedure: EGD with antral biopsy Sclerotherapy with epinephrine Anesthesia Type sedation Specimen(s) collected antral mucosa PHUONG RODRIGUEZ MD Sep 14, 2016 10:04
[2016-09-14] MEDS ORDERED: CIPR500T4 PO (10:11)
[2016-09-14] MEDS ORDERED: GLIP10TA13 PO (10:11)
[2016-09-14] MEDS ORDERED: EPINEPHrine INJECTION 1 MG/ML AMP IV PRN (10:45)
[2016-09-14] MEDS ORDERED: MIDAZOLAM 2 MG/2 ML (VERSED) VIAL IM ONE (10:45)
[2016-09-14 11:20] LABS: MEAN PLATELET VOLUME 10.5 FL (7.4-10.4); RED BLOOD COUNT 2.99 10^6/uL (4.35-5.85); RED CELL DISTRIBUTION WIDTH 14.8 % (10.0-14.5); WHITE BLOOD COUNT 15.2 10^3/uL (4.3-11.0)
[2016-09-14] MEDS: PANTOPRAZOLE INJECTION 200 MG in NS (IVPB) 50 ML IV SCH (13:51)
[2016-09-14] MEDS ORDERED: MAGNESIUM CITRATE 300 ML BTL PO NR (19:00)
[2016-09-14] MEDS: sitaGLIPtin 50 MG (JANUVIA) TAB PO SCH (20:31)
[2016-09-14] MEDS: POLYETHYLENE GLYCOL 17 GM (MIRALAX) PACK PO SCH (20:32)
[2016-09-15] VITALS: BP 97/58
[2016-09-15 04:00] VITALS: BP 120/63
[2016-09-15 04:12] LABS: BASOPHILS # (AUTO) 0.1 10^3/uL (0.0-0.1); BASOPHILS % (AUTO) 1 % (0-10); EOSINOPHILS # (AUTO) 0.3 10^3/uL (0.0-0.3); EOSINOPHILS % (AUTO) 2 % (0-10); LYMPHOCYTES # (AUTO) 1.5 X 10^3 (1.0-4.0); LYMPHOCYTES % (AUTO) 10 % (12-44); MEAN CORPUSCULAR HEMOGLOBIN 30 PG (25-34); MEAN CORPUSCULAR HGB CONC 33 G/DL (32-36); MEAN CORPUSCULAR VOLUME 89 FL (80-99); MONOCYTES # (AUTO) 1.5 X 10^3 (0.0-1.0); MONOCYTES % (AUTO) 10 % (0-12); NEUTROPHILS # (AUTO) 11.2 X 10^3 (1.8-7.8); NEUTROPHILS % (AUTO) 77 % (42-75); PLATELET COUNT 231 10^3/uL (130-400); RED BLOOD COUNT 2.78 10^6/uL (4.35-5.85); RED CELL DISTRIBUTION WIDTH 15.1 % (10.0-14.5); WHITE BLOOD COUNT 14.7 10^3/uL (4.3-11.0)
[2016-09-15 04:39] LABS: CALCIUM 7.8 MG/DL (8.5-10.1); CREATININE SERUM 1.47 MG/DL (0.60-1.30); MAGNESIUM 1.9 MG/DL (1.8-2.4); PHOSPHORUS 3.4 MG/DL (2.3-4.7); POTASSIUM 3.7 MMOL/L (3.6-5.0)
[2016-09-15] MEDS: CATHETER FLUSH 10 ML SYR IV SCH ×3 (06:07→22:00)
[2016-09-15] MEDS: inSUlin (REGULAR) HUMAN 1 UNIT/0.01 ML (CHARGE PER UNIT) SC SCH ×4 (06:08→19:30)
[2016-09-15 08:00] VITALS: BP 115/63
[2016-09-15] MEDS: risperiDONE 1 MG (RisperDAL) TAB PO SCH ×2 (08:56→20:44)
[2016-09-15] MEDS: BENZTROPINE MESYLATE 1 MG (COGENTIN) TAB PO SCH ×2 (08:56→20:45)
[2016-09-15] MEDS: SENNA W/DOCUSATE (SENOKOT S) TABLET PO SCH ×2 (08:56→20:45)
[2016-09-15] MEDS: LORazepam 1 MG (ATIVAN) TAB PO SCH ×2 (08:56→20:44)
--- NOTE | 2016-09-15 09:02 | Diagnostic Imaging Report ---
INDICATION: Post EGD. COMPARISON STUDY: Chest from 2 days ago. FINDINGS: A portable view of the chest demonstrates the heart size to be at the upper limits of normal. The lungs are clear. The vascularity is normal. There are no pleural effusions. There is a gaseous abdomen, consistent with the recent endoscopy. IMPRESSION: There are no acute findings. Dictated by: Dictated on workstation # [id number]
--- NOTE | 2016-09-15 09:06 | Progress Note (SOAP) ---
Subjective Subjective/Events-last exam No hemetemesis or mike. No abdominal pain Review of Systems General: No Chills, No Night Sweats, No Fatigue, No Malaise HEENT: No Head Aches, No Eye Pain, No Ear Pain, No Dysphasia, No Sinus Congestion, No Post Nasal Drip, No Sore Throat Pulmonary: No Dyspnea, No Cough, No Pleuritic Chest Pain Cardiovascular: No: Chest Pain, Edema, Lt Headedness, Orthopnea, Palpitations, Paroxysmal Noc. Dyspnea Gastrointestinal: No: Abdominal Pain, Constipation, Diarrhea, Hematochezia, Melena, Nausea, Vomiting Genitourinary: No Dysuria, No Frequency, No Incontinence, No Hematuria, No Retention Neurological: No: Change in speech, Confusion, Incoordination, Numbness, Other , Seizures, Weakness Objective Exam Vital Signs Date Time Temp Pulse Resp B/P Pulse Ox O2 Delivery O2 Flow Rate FiO2 09/15/16 07:00 113 09/15/16 04:00 99 120/63 Room Air 09/15/16 04:00 97.7 09/15/16 01:00 93 09/15/16 00:00 98 97/58 Room Air 09/14/16 21:00 Room Air 09/14/16 20:00 98.6 105 12 108/65 98 Room Air 09/14/16 19:44 100 09/14/16 19:00 101 09/14/16 16:00 97.8 09/14/16 16:00 Room Air 09/14/16 13:00 89 09/14/16 12:00 Room Air 09/14/16 12:00 98.0 I & O 09/15/16 07:00 Intake Total 1625 ml Balance 1625 ml Capillary Refill : Less Than 3 Seconds General Appearance: No Apparent Distress HEENT: PERRL/EOMI Neck: Normal Inspection Respiratory: Lungs Clear Cardiovascular: Regular Rate, Rhythm Gastrointestinal: non tender soft Extremity: Normal Inspection Neurologic/Psychiatric: Alert Oriented x3 Skin: Warm/Dry Results Lab Laboratory Tests 09/14/16 11:15: Hematocrit 26L, Hemoglobin 9.0L, Mean Corpuscular Hemoglobin 30, Mean Corpuscular Hemoglobin Concent 34, Mean Corpuscular Volume 88, Mean Platelet Volume 10.5H, Platelet Count 183, Red Blood Count 2.99L, Red Cell Distribution Width 14.8H, White Blood Count 15.2H 09/14/16 12:45: Lab Scanned Report Transfusion Reaction Form 09/14/16 14:10: Glucometer 221H 09/15/16 04:00: Hematocrit 25L, Hemoglobin 8.2L, Mean Corpuscular Hemoglobin 30, Mean Corpuscular Hemoglobin Concent 33, Mean Corpuscular Volume 89, Mean Platelet Volume 10.0, Platelet Count 231, Red Blood Count 2.78L, Red Cell Distribution Width 15.1H, White Blood Count 14.7H, Anion Gap 9, BUN/Creatinine Ratio 40, Basophils # (Auto) 0.1, Basophils (%) (Auto) 1, Blood Urea Nitrogen 59H, Calcium Level 7.8L, Carbon Dioxide Level 18L, Chloride Level 113H, Creatinine 1.47H, Eosinophils # (Auto) 0.3, Eosinophils (%) (Auto) 2, Estimat Glomerular Filtration Rate 47, Glucose Level 173H, Lymphocytes # (Auto) 1.5, Lymphocytes (% ) (Auto) 10L, Magnesium Level 1.9, Monocytes # (Auto) 1.5H, Monocytes (%) (Auto ) 10, Neutrophils # (Auto) 11.2H, Neutrophils (%) (Auto) 77H, Phosphorus Level 3.4, Potassium Level 3.7, Sodium Level 140 Assessment/Plan Assessment/Plan Assess & Plan/Chief Complaint Bleeding duodenal ulcer. Stable. Protonix infusion till am. Diagnosis/Problems: Final Diagnosis Bleeding duodenal ulcer Clinical Quality Measures DVT/VTE Risk/Contraindication: Risk Factor Score Per Nursin RFS Level Per Nursing on Admit: 4+=Very High PHUONG RODRIGUEZ MD Sep 15, 2016 09:06
--- NOTE | 2016-09-15 10:26 | Progress Note-Hospitalist ---
Subjective HPI/CC On Admission the patient is a 70-year-old white male who is a very poor historian. Additional history is obtained from caregiver who is the bedside. He is alert and pleasant but apparently has been falling reporting increased weakness and fatigue over the past several weeks. He is apparently been having increased abdominal pain at least partially relieved by antacids. He has chronic problems with constipation but could not tell me whether or not he is noted any melena or bright red blood per rectum. He does believe that he has had ulcers in the past. He does not recall whether or not he's had any bleeding issues. He did undergo colonoscopy 2 years ago that revealed diverticular disease was not done for bleeding but he did have anemia at the time no potential bleeding sites were identified. He was having constipation problems at that time. He denies chills fever or night sweats and is had no nausea vomiting or hematemesis. He denies difficulty swallowing and denies intestinal cramping.he also denies odynophagia. Date Seen 09/15/16 Subjective/Events-last exam patient denies abdominal pain lightheadedness or weakness. He has been able to void a fair amount of urine this morning sitting on the edge the bed. He denied lightheadedness and doing so. His bowels have not yet moved but he has been passing gas. He denies nausea and ask when he could have solid food. He' s been tolerating liquids without difficulty. Objective Exam Vital Signs Vital Sign - Last 12Hours 09/12/16 09:10 Temp 97.2 Pulse 110 Resp 16 B/P 96/57 Pulse Ox 98 O2 Delivery Room Air Capillary Refill : Less Than 3 Seconds General Appearance: No Apparent Distress Anxious Respiratory: Chest Non Tender Lungs Clear Normal Breath Sounds No Accessory Muscle Use No Respiratory Distress Cardiovascular: Regular Rate, Rhythm No Edema No Gallop No JVD No Murmur Gastrointestinal: Normal Bowel Sounds No Organomegaly No Pulsatile Mass Non Tender Soft Extremity: Normal Inspection Normal Range of Motion Non Tender No Pedal Edema Skin: Pallor Results/Procedures Lab Laboratory Tests 09/14/16 11:15 09/15/16 04:00 Assessment/Plan Assessment and Plan Assess & Plan/Chief Complaint 1. Recurrent upper GI bleed with EGD. Boswell revealing an oozing duodenal ulcer. Patient underwent epinephrine-based sclerotherapy H&H is been relatively stable we'll lower at 8.2 which may be dilutional. We'll repeat an H &H this afternoon we'll have the patient set up but defer solid food to Dr. Boswell and would like to see stable counts. We'll also be repeating counts the morning and continuing proton pump inhibitor therapy. Dr. Boswell help greatly appreciated.. VALE CLINE MD Sep 15, 2016 10:26
--- NOTE | 2016-09-15 10:33 | OPERATIVE REPORT ---
PROCEDURE PHYSICIAN: PHUONG RODRIGUEZ DATE OF PROCEDURE: 09/14/2016 PROCEDURE: 1. Upper GI endoscopy with antral biopsy. 2. Sclerotherapy of bleeding duodenal ulcer. SURGEON: Elbert. INDICATION FOR THE PROCEDURE: This gentleman has been admitted with what appears to be upper GI bleeding, contributing to acute anemia, requiring blood transfusion. Upper endoscopy was felt to be appropriate. Informed consent was obtained after reviewing the procedure in detail. DESCRIPTION OF PROCEDURE: He was monitored in the Intensive Care Unit and conscious sedation was achieved using Versed and fentanyl. The flexible gastroscope was introduced down the esophagus, past the stomach, into the proximal duodenum. FINDINGS: ESOPHAGUS: Quite tortuous with Schatzki's ring at the distal end. STOMACH: Mild distal gastritis. Biopsy for H-Pylori was obtained. DUODENUM: A large and chronic ulcer about 10 mm in diameter with slough at the base, at the duodenal bulb. There was oozing from the edges of the ulcer. Sclerotherapy was achieved using 1:10,000 epinephrine with adequate blanching. He tolerated the procedure well and remained stable. IMPRESSION: 1. Upper GI bleeding due to large duodenal ulcer. 2. Sclerotherapy completed. 3. We will treat conservatively with Protonix infusion and monitoring of his hemoglobin. 4. A follow-up endoscopy in 48 hours will be reasonable. Job ID: [id number] Dictated Date: 09/14/2016 10:01:18 Document Manager Date: 09/15/2016 10:25:44 / chrissy HOWELL
[2016-09-15 12:00] VITALS: BP 111/66
[2016-09-15] MEDS: NS IV 1000 ML 1,000 ML IV SCH (12:41)
[2016-09-15] MEDS: PANTOPRAZOLE INJECTION 200 MG in NS (IVPB) 50 ML IV SCH (14:39)
[2016-09-15 16:05] LABS: RED BLOOD COUNT 2.95 10^6/uL (4.35-5.85); RED CELL DISTRIBUTION WIDTH 15.2 % (10.0-14.5); WHITE BLOOD COUNT 16.7 10^3/uL (4.3-11.0)
[2016-09-15 19:40] VITALS: BP 129/68
[2016-09-15] MEDS: sitaGLIPtin 50 MG (JANUVIA) TAB PO SCH (20:45)
[2016-09-15] MEDS: POLYETHYLENE GLYCOL 17 GM (MIRALAX) PACK PO SCH (20:45)
[2016-09-16] VITALS (19 sets, daily range): BP systolic 96–141; BP diastolic 56–74
[2016-09-16] MEDS: NS IV 1000 ML 1,000 ML IV SCH ×2 (00:23→12:25)
[2016-09-16 05:17] LABS: RED BLOOD COUNT 2.22 10^6/uL (4.35-5.85); RED CELL DISTRIBUTION WIDTH 15.1 % (10.0-14.5); WHITE BLOOD COUNT 12.6 10^3/uL (4.3-11.0)
[2016-09-16] MEDS: CATHETER FLUSH 10 ML SYR IV SCH ×3 (05:45→20:58)
[2016-09-16] MEDS: inSUlin (REGULAR) HUMAN 1 UNIT/0.01 ML (CHARGE PER UNIT) SC SCH ×4 (05:46→20:56)
--- NOTE | 2016-09-16 08:54 | Pre-Op Note & Conscious Sedat ---
Pre-Operative Progress Note H&P Reviewed The H&P was reviewed, patient examined and no changes noted. Date H&P Reviewed: Sep 16, 2016 Time H&P Reviewed: 08:54 Pre-Op Diagnosis: Bleeding duodenal ulcer Conscious Sedation Pre-Proced Time Reviewed: 09:10 ASA Class: 3 Airway Mallampati Classification: ([place] appropriate class) I. II. III, IV Lungs Heart ASA score ASA 1: a normal healthy patient ASA 2: a patient with a mild systemic disease (mid diabetes, controlled hypertension, obesity ASA 3: a patient with a severe systemic disease that limits activity (angina , COPD, prior Myocardial infarction) ASA 4: a patient with an incapacitating disease that is a constant threat to life (CHF, renal failure) ASA 5: a moribund patient not expected to survive 24 hrs. (ruptured aneurysm) ASA 6: a declared brain patient whose organs are being harvested. For emergent operations, add the letter E after the classification Grade 2 Sedation Plan: Discussed options with patient/fam Note The patient is an appropriate candidate to undergo the planned procedure, sedation, and anesthesia. The patient immediately re-assessed prior to indication. PHUONG RODRIGUEZ MD Sep 16, 2016 08:54
[2016-09-16] MEDS ORDERED: fentaNYL INJECTION 100 MCG/2 ML AMP ONE (13:13)
[2016-09-16] MEDS ORDERED: MIDAZOLAM 2 MG/2 ML (VERSED) VIAL ONE ×2 (13:13→13:14)
[2016-09-16] MEDS ORDERED: HURRICAINE EXT TUBE (BENZOCAINE) ONE (13:14)
[2016-09-16] MEDS: MIDAZOLAM 2 MG/2 ML (VERSED) VIAL IVP PRN ×2 (13:16→13:19)
[2016-09-16] MEDS: fentaNYL INJECTION 100 MCG/2 ML AMP IVP PRN ×2 (13:17→13:20)
[2016-09-16] MEDS ORDERED: EPINEPHrine INJECTION 1 MG/ML AMP ONE (13:29)
[2016-09-16] MEDS ORDERED: HURRICAINE EXT TUBE (BENZOCAINE) XX PRN (13:45)
--- NOTE | 2016-09-16 13:52 | Progress Note-Post Operative ---
Post-Operative Progess Note Pre-Operative Diagnosis Bleeding duodenal ulcer Post-Operative Diagnosis multiple acute duodenal erosions with oozing. Post-Op Procedure Note Name of Procedure: EGD Sclerotherapy with epinephrine Anesthesia Type sedation PHUONG RODRIGUEZ MD Sep 16, 2016 1:52 pm
[2016-09-16] MEDS ORDERED: EPINEPHrine INJECTION 1 MG/ML AMP INJ PRN (14:00)
[2016-09-16] MEDS: LORazepam 1 MG (ATIVAN) TAB PO SCH ×2 (14:57→20:57)
[2016-09-16] MEDS: SENNA W/DOCUSATE (SENOKOT S) TABLET PO SCH ×2 (14:57→20:56)
[2016-09-16] MEDS: risperiDONE 1 MG (RisperDAL) TAB PO SCH ×2 (14:57→20:57)
[2016-09-16] MEDS: BENZTROPINE MESYLATE 1 MG (COGENTIN) TAB PO SCH ×2 (14:58→20:57)
[2016-09-16] MEDS: PANTOPRAZOLE INJECTION 200 MG in NS (IVPB) 50 ML IV SCH (15:19)
[2016-09-16] MEDS ORDERED: MAGNESIUM CITRATE 300 ML BTL PO NR ×2 (16:00→21:00)
--- NOTE | 2016-09-16 16:31 | Progress Note-Hospitalist ---
Subjective HPI/CC On Admission the patient is a 70-year-old white male who is a very poor historian. Additional history is obtained from caregiver who is the bedside. He is alert and pleasant but apparently has been falling reporting increased weakness and fatigue over the past several weeks. He is apparently been having increased abdominal pain at least partially relieved by antacids. He has chronic problems with constipation but could not tell me whether or not he is noted any melena or bright red blood per rectum. He does believe that he has had ulcers in the past. He does not recall whether or not he's had any bleeding issues. He did undergo colonoscopy 2 years ago that revealed diverticular disease was not done for bleeding but he did have anemia at the time no potential bleeding sites were identified. He was having constipation problems at that time. He denies chills fever or night sweats and is had no nausea vomiting or hematemesis. He denies difficulty swallowing and denies intestinal cramping.he also denies odynophagia. Date Seen 09/16/16 Subjective/Events-last exam Patient had been doing well but again began feeling weak last night. An H&H was obtained and was again down to 6.6. This is associated with mild tachycardia without significant hypotension. He received 1 unit of packed cells and currently his heart rate is 90 with systolic blood pressure greater than 100. He is nondiaphoretic. Dr. Boswell had been contacted and is planning on taking him for repeat EGD. EGD done revealed a large oozing duodenal ulcer for which sclerotherapy with epinephrine was performed. The patient denies abdominal pain shortness of breath or lightheadedness currently. Objective Exam Vital Signs Vital Sign - Last 12Hours 09/12/16 09:10 Temp 97.2 Pulse 110 Resp 16 B/P 96/57 Pulse Ox 98 O2 Delivery Room Air Capillary Refill : Less Than 3 Seconds General Appearance: Anxious Mild Distress Respiratory: Chest Non Tender Lungs Clear Normal Breath Sounds No Accessory Muscle Use No Respiratory Distress Cardiovascular: Regular Rate, Rhythm No Edema No Gallop No JVD Normal Peripheral Pulses Other (Soft apical nonradiating murmur 09/07) Gastrointestinal: Normal Bowel Sounds No Organomegaly No Pulsatile Mass Non Tender Soft Distended (Mild) Skin: Warm/Dry Pallor Results/Procedures Lab Laboratory Tests 09/16/16 04:55 Assessment/Plan Assessment and Plan Assess & Plan/Chief Complaint 1. Recurrent upper GI bleed with EGD with EGD revealing and using large duodenal ulcer. Patient is being taken back for repeat EGD per directions later today. Currently he is hemodynamically stable we'll give another unit of packed cells. We discussed that if bleeding could not be stopped via cauterization or sclerotherapy surgery would become necessary which would entail removing the duodenal bulb with reanastomosis discussed in layman's terms. VALE CLINE MD Sep 16, 2016 16:31
[2016-09-16] MEDS: POLYETHYLENE GLYCOL 17 GM (MIRALAX) PACK PO SCH (20:56)
[2016-09-16] MEDS: sitaGLIPtin 50 MG (JANUVIA) TAB PO SCH (20:57)
[2016-09-17] VITALS (21 sets, daily range): BP systolic 72–112; BP diastolic 6–68
[2016-09-17] MEDS: NS IV 1000 ML 1,000 ML IV SCH ×3 (00:07→15:52)
[2016-09-17 04:10] LABS: BASOPHILS % (AUTO) 0 % (0-10); EOSINOPHILS # (AUTO) 0.1 10^3/uL (0.0-0.3); EOSINOPHILS % (AUTO) 1 % (0-10); LYMPHOCYTES # (AUTO) 1.4 X 10^3 (1.0-4.0); LYMPHOCYTES % (AUTO) 10 % (12-44); MEAN CORPUSCULAR HEMOGLOBIN 30 PG (25-34); MEAN CORPUSCULAR HGB CONC 34 G/DL (32-36); MEAN CORPUSCULAR VOLUME 89 FL (80-99); MEAN PLATELET VOLUME 9.9 FL (7.4-10.4); MONOCYTES # (AUTO) 1.5 X 10^3 (0.0-1.0); MONOCYTES % (AUTO) 11 % (0-12); NEUTROPHILS # (AUTO) 10.6 X 10^3 (1.8-7.8); NEUTROPHILS % (AUTO) 78 % (42-75); PLATELET COUNT 252 10^3/uL (130-400); RED BLOOD COUNT 2.01 10^6/uL (4.35-5.85); RED CELL DISTRIBUTION WIDTH 15.8 % (10.0-14.5); WHITE BLOOD COUNT 13.6 10^3/uL (4.3-11.0)
[2016-09-17 04:33] LABS: ALBUMIN 1.8 G/DL (3.2-4.5); BILIRUBIN,TOTAL 0.2 MG/DL (0.1-1.0); CREATININE SERUM 1.35 MG/DL (0.60-1.30); PHOSPHORUS 3.1 MG/DL (2.3-4.7); POTASSIUM 4.4 MMOL/L (3.6-5.0); TOTAL PROTEIN 2.8 G/DL (6.4-8.2)
[2016-09-17 04:57] LABS: ANISOCYTOSIS SLIGHT; BAND NEUTROPHILS 14 %; BASOPHILS % (MANUAL) 0 %; EOSINOPHILS % (MANUAL) 0 %; LYMPHOCYTES % (MANUAL) 14 %; METAMYELOCYTES % 1 %; NEUTROPHILS % (MANUAL) 65 %; POIKILOCYTOSIS SLIGHT; POLYCHROMASIA MODERATE
[2016-09-17] MEDS ORDERED: ALBUMIN 5% 12.5 GM/250 ML 500 ML IV ONE (05:07)
[2016-09-17] MEDS ORDERED: BISACODYL 10 MG SUPP (DULCOLAX) ONE (05:08)
[2016-09-17] MEDS: CATHETER FLUSH 10 ML SYR IV SCH ×2 (05:16→15:54)
[2016-09-17] MEDS: inSUlin (REGULAR) HUMAN 1 UNIT/0.01 ML (CHARGE PER UNIT) SC SCH ×2 (05:17→10:30)
[2016-09-17] MEDS ORDERED: NS IV 1000 ML 1,000 ML IV SCH ×2 (06:00→06:15)
[2016-09-17] MEDS ORDERED: BISACODYL 10 MG SUPP (DULCOLAX) PR ONE (06:00)
[2016-09-17] MEDS ORDERED: ALBUMIN 5% 12.5 GM/250 ML 500 ML IV SCH (06:15)
--- NOTE | 2016-09-17 06:41 | Diagnostic Imaging Report ---
INDICATION: Abdominal distention EXAMINATION: KUB at 4:35 AM There is gaseous distention of the GI tract. There is a moderate amount of stool in the descending colon and rectum. There are no pathologic masses or calcifications seen. IMPRESSION: Adynamic ileus. Dictated by: Dictated on workstation # [id number]
[2016-09-17] MEDS ORDERED: MINERAL OIL ENEMA 133 ML BTL PR NR (07:45)
[2016-09-17] MEDS ORDERED: MAGNESIUM CITRATE 300 ML BTL PO NR ×2 (08:00→14:00)
[2016-09-17] MEDS: LORazepam INJ 2 MG/ML (ATIVAN) VIAL IVP PRN ×2 (08:25→14:02)
[2016-09-17] MEDS ORDERED: MIDAZOLAM 2 MG/2 ML (VERSED) VIAL ONE (08:41)
[2016-09-17] MEDS ORDERED: HURRICAINE EXT TUBE (BENZOCAINE) ONE (08:42)
[2016-09-17] MEDS ORDERED: EPINEPHrine INJECTION 1 MG/ML AMP ONE (08:42)
[2016-09-17] MEDS: SENNA W/DOCUSATE (SENOKOT S) TABLET PO SCH (09:00)
[2016-09-17] MEDS: BENZTROPINE MESYLATE 1 MG (COGENTIN) TAB PO SCH (09:00)
[2016-09-17] MEDS: LORazepam 1 MG (ATIVAN) TAB PO SCH (09:00)
[2016-09-17] MEDS: risperiDONE 1 MG (RisperDAL) TAB PO SCH (09:00)
[2016-09-17] MEDS ORDERED: NS IV 1000 ML 1,000 ML ONE ×2 (09:55→11:45)
[2016-09-17] MEDS ORDERED: LIDOCAINE 1% INJ 20 ML (XYLOCAINE) VIAL ONE (09:55)
[2016-09-17] MEDS ORDERED: HEParin (CATH LAB) 2,000 ML IV ONE (09:55)
[2016-09-17] MEDS ORDERED: MIDAZOLAM 5 MG/5 ML (VERSED) VIAL ONE (09:56)
[2016-09-17] MEDS ORDERED: fentaNYL INJECTION 100 MCG/2 ML AMP ONE (09:57)
[2016-09-17 10:02] LABS: INR 1.8 (0.8-1.4); PROTHROMBIN TIME PATIENT 20.2 SEC (12.2-14.7)
--- NOTE | 2016-09-17 13:25 | Conscious Sedation/ASA ---
Conscious Sedation Pre-Proced Time Reviewed: 08:54 ASA Class: 3 Airway Mallampati Classification: (marshall appropriate class) I. II. III, IV Lungs Heart ASA score ASA 1: a normal healthy patient ASA 2: a patient with a mild systemic disease (mid diabetes, controlled hypertension, obesity ASA 3: a patient with a severe systemic disease that limits activity (angina , COPD, prior Myocardial infarction) ASA 4: a patient with an incapacitating disease that is a constant threat to life (CHF, renal failure) ASA 5: a moribund patient not expected to survive 24 hrs. (ruptured aneurysm) ASA 6: a declared brain patient whose organs are being harvested. For emergent operations, add the letter E after the classification Grade 3 Sedation Plan: Analgesia Note The patient is an appropriate candidate to undergo the planned procedure, sedation, and anesthesia. The patient immediately re-assessed prior to indication. NADIA SANDOVAL MD Sep 17, 2016 13:25
--- NOTE | 2016-09-17 13:28 | Radiology-Procedure Note ---
Procedures/Interventions Procedure/Intervention s/p mesenteric angiogram. The SMA, SMA main branches and LEONOR were inejected with no active bleeding seen. The celiac trunk could not be accessed despite multiple attempts probably related to significant osteal stenosis or median ligament compression. full details under imaging. NADIA SANDOVAL MD Sep 17, 2016 13:28
[2016-09-17] MEDS ORDERED: METOCLOPRAMIDE INJ 10 MG/2 ML (REGLAN) IVP SCH (14:00)
[2016-09-17] MEDS ORDERED: D5W 250 ML (IVPB) 250 ML IV ONE (14:22)
[2016-09-17] MEDS ORDERED: NOREPINEPHRINE 4 MG/4 ML (LEVOPHED) AMP IV ONE (14:22)
[2016-09-17] MEDS ORDERED: NOREPINEPHRINE 4 MG in D5W 250 ML (IVPB) 250 ML IV SCH (14:30)
[2016-09-17] MEDS ORDERED: PROPOFOL DRIP (ICU) 100 ML IV ONE (15:06)
--- NOTE | 2016-09-17 15:18 | Pulmonary Consultation ---
History of Present Illness History of Present Illness Date of Consultation 09/17/16 15:11 Date of Admission History of Present Illness Pt present 09/13 presented secondary to increased weakness, fatigue, and abdominal pain. Found to have acute GIB he is s/p EGD. He was found to have multiple duodenal ulcers and epinephrine was injected to stop oozing. Dr. Boswell has decided to transfer pt to for definitive surgery. Pt is currently hypotensive and can not control his airway. unable to obtain ROS. Pt needs to be intubated for airway management. Allergies and Home Medications Allergies Coded Allergies: No Known Drug Allergies (Verified , 10/23/08) Home Medications Benztropine Mesylate 0.5 Mg Tablet 0.5 MG PO BID (Reported) Ciprofloxacin HCl 500 Mg Tablet 10Days 500 MG PO BID (Reported) 10 DAY THERAPY FILLED 09-08-16 Docusate Sodium 100 Mg Capsule 100 MG PO DAILY (Reported) Glipizide 10 Mg Tablet 10 MG PO DAILY (Reported) Lorazepam 1 Mg Tab 1 MG PO BID (Reported) [place]-3 Fatty Acids/Fish Oil 1 Each Capsule 1,000 MG PO DAILY (Reported) Risperidone 3 Mg Tablet 3 MG PO BID (Reported) Simvastatin 20 Mg Tablet 20 MG PO HS (Reported) Past Xvtjqah-Fwvllw-Nfavfg Hx Patient Social History Alcohol Use: Denies Use Recreational Drug Use: No Smoking Status: Never a Smoker Recent Foreign Travel: No Contact w/Someone Who Travel: No Recent Infectious Disease Expo: No Recent Hopitalizations: Yes Physical Abuse Screen: No Sexual Abuse: No Immunizations Up To Date Date of Influenza Vaccine: May 02, 2016 Seasonal Allergies Seasonal Allergies: No Surgeries HX Surgeries: Yes (LEFT ARM - FX REPAIR) Surgeries: Orthopedic Respiratory Hx Respiratory Disorders: No Cardiovascular Hx Cardiac Disorders: No Neurological Hx Neurological Disorders: No Reproductive System Hx Reproductive Disorders: No Genitourinary Hx Genitourinary Disorders: No Genitourinary Disorders: UTI-Chronic Gastrointestinal Hx Gastrointestinal Disorders: Yes (Constipation) Musculoskeletal Hx Musculoskeletal Disorders: No Endocrine Hx Endocrine Disorders: Yes Endocrine Disorders: Diabetes, Non-Insulin dep HEENT HX ENT Disorders: No Cancer Hx Cancer: No Psychosocial Hx Psychiatric Problems: Yes Behavioral Health Disorders: Anxiety, Schizophrenia Integumentary HX Skin/Integumentary Disorder: No Blood Transfusions Hx Blood Disorders: No Adverse Reaction to a Blood Tr: No Reviewed Nursing Assessment Reviewed/Agree w Nursing PMH: Yes Family Medical History Significant Family History: No Pertinent Family Hx Family Medial History: Patient reports no known family medical history. Exam Exam Vital Signs Date Time Temp Pulse Resp B/P Pulse Ox O2 Delivery O2 Flow Rate FiO2 09/17/16 12:48 98.6 108 09/17/16 08:42 99.8 116 24 81/63 100 1.00 09/17/16 08:17 99.8 09/17/16 07:00 105 09/17/16 06:25 97.9 102 93/55 2.00 09/17/16 06:00 98 14 93/55 98 Nasal Cannula 2.00 09/17/16 05:00 105 16 90/51 100 Nasal Cannula 2.00 09/17/16 04:50 99.0 105 20 97/44 96 2.00 09/17/16 04:36 100.0 113 26 95/68 100 2.00 09/17/16 04:00 100.0 /6 Nasal Cannula 2.00 09/17/16 04:00 115 12 76/41 97 Nasal Cannula 2.00 09/17/16 03:00 106 15 84/42 100 Nasal Cannula 2.00 09/17/16 02:00 120 20 112/59 93 Nasal Cannula 2.00 09/17/16 01:00 97 09/17/16 01:00 93 18 103/59 100 Nasal Cannula 2.00 09/17/16 00:08 98.9 09/17/16 00:00 94 Room Air 09/17/16 00:00 111 15 103/67 100 Nasal Cannula 2.00 09/16/16 23:00 103 12 100/56 96 Nasal Cannula 2.00 09/16/16 22:00 92 12 96/60 90 Room Air 09/16/16 21:00 104 13 109/68 92 Room Air 09/16/16 20:00 98.7 Room Air 09/16/16 20:00 94 Room Air 09/16/16 20:00 109 12 141/60 99 Room Air 09/16/16 19:00 103 09/16/16 19:00 104 18 113/66 90 Room Air 09/16/16 18:00 125 15 119/74 99 Room Air 09/16/16 17:00 19 133/73 98 Room Air 09/16/16 16:00 111 32 121/67 95 Room Air I & O 09/17/16 07:00 Intake Total 2490 ml Output Total 3125 ml Balance -635 ml General Appearance: Anxious Mild Distress HEENT: PERRL/EOMI Neck: Normal Inspection Respiratory: Chest Non Tender Lungs Clear Normal Breath Sounds No Accessory Muscle Use No Respiratory Distress Cardiovascular: Regular Rate, Rhythm No Edema No Gallop No JVD Normal Peripheral Pulses Other (Soft apical nonradiating murmur 2/6) Capillary Refill: Less Than 3 Seconds Gastrointestinal: non tender soft Extremity: Normal Inspection Normal Range of Motion Non Tender No Pedal Edema Neurologic/Psychiatric: Alert Oriented x3 Skin: Warm/Dry Pallor Results Lab Laboratory Tests 09/15/16 16:00 09/16/16 04:55 09/16/16 21:25 09/17/16 04:00 09/17/16 11:10 Assessment/Plan Assessment/Plan Acute respiratory failure -Intubate patient -Diprivan -Check ABG in 30 min after intubation Acute GIB s/p 6 units of PRBC -repeat H&H - pt will probably need another transfusion prior to transfer -transferring to Metabolic acidosis Hypotensive -levophed is hanging -1 liter IVF bolus. renal failure -IVF Clinical Quality Measures DVT/VTE Risk/Contraindication: Risk Factor Score Per Nursin RFS Level Per Nursing on Admit: 4+=Very High JESSICA GONZALES DO Sep 17, 2016 15:18
[2016-09-17 15:32] LABS: MEAN PLATELET VOLUME 10.3 FL (7.4-10.4); RED BLOOD COUNT 3.38 10^6/uL (4.35-5.85); RED CELL DISTRIBUTION WIDTH 15.8 % (10.0-14.5); WHITE BLOOD COUNT 18.5 10^3/uL (4.3-11.0)
--- NOTE | 2016-09-17 15:43 | Anesthesia-Procedure Note ---
Procedure Start/Stop Time Date of Procedure: Sep 17, 2016 Start Time: 15:00 Stop Time: 15:20 Procedures/Interventions RSI: Yes Vital Signs Pre-procedure 100/60 [id number] 100% pre-Ox, [id number]: Yes Intubation Method: orotracheal Videoscope used: Yes Grade View: 2 Medications: Etomidate, Succinylcholine Mask Ventilation: positive Positive End Tide CO2: Yes Breath Sounds after Intubation: bilateral-equal ETT Securred @ (cm): 20 Intubated with ease: Yes Intubation Complications: no complications Post Intubation Xray-done: Yes BIENVENIDO CLAY CRNA Sep 17, 2016 15:43
[2016-09-17 16:19] LABS: ABG BASE EXCESS -11.6 MMOL/L (-2.5-2.5); ABG OXYGEN SATURATION 100 % (94-100); ABG PCO2 27 MMHG (35-45); ABG PO2 229 MMHG (79-93)
[2016-09-17 16:21] LABS: ABG HCO3 13 MMOL/L (23-27); ABG PH 7.32 (7.37-7.43); ALLENS TEST YES-POS
[2016-09-17 16:22] LABS: PATIENT TEMP 99.3
--- NOTE | 2016-09-17 16:22 | Diagnostic Imaging Report ---
EXAMINATION: Portable supine upright radiograph of the chest. INDICATION: ET tube placement. FINDINGS: ET tube is placed in the distal trachea at 2 cm above the saige. The lungs demonstrate mild prominence of the interstitial markings with no significant infiltrate. The heart size is borderline enlarged. No effusion or pneumothorax. The mediastinum and barbara appear unremarkable. IMPRESSION: ET tube in good position. Dictated by: Dictated on workstation # [id number]
[2016-09-17] MEDS ORDERED: SODIUM BICARB 8.4% 50 MEQ/50 ML (ABBOTT) SYR IV NR (16:30)
[2016-09-17] MEDS ORDERED: SODIUM BICARB 8.4% 50 MEQ/50 ML (ABBOTT) SYR ONE ×2 (16:30→16:31)
--- NOTE | 2016-09-17 20:12 | Diagnostic Imaging Report ---
EXAMINATION: Ultrasound guidance utilized to access the right common femoral artery. Aortogram, SMA and the SMA branch angiogram, LEONOR and inferior epigastric artery angiogram. Closure of the right common femoral arteriotomy with MynxGrip device. Conscious sedation for 2.5 hours INDICATION: GI bleeding with a history of duodenal ulcer and acute drop in hemoglobin. CONSENT: Informed consent was obtained from the patient. The risks, benefits, potential complications and alternatives were reviewed and all questions answered to the patient's satisfaction. Potential vascular, catheter related and nontarget embolization/chemotherapy related complications were discussed with the patient. The patient's vital signs, cardiac rhythm, and pulse oximetry were observed throughout the procedure by qualified nursing personnel. Sedation: Fentanyl 50 mcg IV, Versed 1 mg. Contrast: 360 mL of Isovue 300. Fluoroscopy time: 54 minutes. PROCEDURE: After sterile preparation and draping, 1% lidocaine was utilized for local anesthesia. Utilizing ultrasound guidance, puncture utilizing a micropuncture needle was performed into the deemed suitable access site of the patent right common femoral artery. Ultrasound image of good needle position is saved. The micropuncture access was exchanged over a wire for a 5 Ivorian sheath. Subsequently, a 5 Ivorian C2 Cobra catheter was advanced into the abdominal aorta. The superior mesenteric artery was selected and the catheter was advanced a few centimeters into the SMA. Angiogram was performed of the SMA was performed which demonstrates no acute extravasation of contrast in the colonic or small bowel branches. There is incomplete filling of pancreaticoduodenal arcade. No extravasation of contrast is seen. Subsequently, the catheter was moved back into the abdominal aorta and numerous attempts were made to access the celiac trunk without success. Multiple times the catheter was selecting an anterior branch at the T12/L1 level near the expected location of the celiac trunk and angiogram demonstrated inferior dorene artery with bifurcation into right and left hand appears normal. Despite multiple attempts and moving the imaging into the lateral projection, the celiac trunk was not accessible. An aortogram was performed and the celiac trunk with visible. It appears that it's origin is narrowed which could be related to plaque or median arcuate ligament compression. This is seen on aortogram performed at the T12 level. The Cobra catheter was exchanged over a wire with a SOS Omni 5 Ivorian catheter and was formed in the aortic arch and was then pulled back into the upper abdomen where multiple attempts were also performed to try to select the celiac trunk without success. Subsequently, the catheter was exchanged for a 4 Ivorian Cobra to attempt accessing the celiac trunk with the smaller Ivorian catheter also without success. Subsequently the SMA was then selected again and a microcatheter was introduced, 2.8 Ivorian PROGREAT. Three branches arising from the SMA with branches towards the upper right abdomen in the area of the duodenum were selected. Digital subtraction angiograms of a total of three branches of the SMA were performed and demonstrated no acute extravasation. One of the branches, however, had communication to the pancreaticoduodenal arcade and the microwire was advanced into third and fourth order branches ascending into the pancreaticoduodenal arcades with digital subtraction angiogram performed. This still demonstrated no extravasation of contrast. Then injection of the LEONOR was attempted. An anterior branch was evaluated at the L3 level. It is not certain if this was the LEONOR as only a branch in the distribution of the left colic artery was seen with no continuation of the superior rectal artery is seen. No extravasation of contrast was noted. Subsequently, the 4 Ivorian Cobra catheter was removed over a wire. Subsequently, utilizing the sheath in the right groin, an angiogram was performed with the tip of the sheath in the right external iliac artery. The right iliac and the common femoral artery and the bifurcation are all patent. There is good position of the arterial access over the femoral head in the mid common femoral artery suitable for closure device. Closure device utilizing MynxGrip collagen plug is successfully utilized with no immediate hematoma or bleeding noted. The patient tolerated the procedure well with no immediate complications. FINDINGS: There was difficulty in getting access into the celiac trunk which were unsuccessful despite multiple attempts with different catheters, probably related to significant ostial stenosis or external compression from the median arcuate ligaments, as seen on aortogram. SMA angiogram demonstrated no extravasation of contrast. Branch access at the L3 level, at the expected level of the LEONOR, only had a branch in the distribution of the left colic artery area without extravasation of contrast. It is doubtful that this is the LEONOR based on careful evaluation of the images and pattern of branching, and is probably a muscular branch. The LEONOR could be occluded or stenosed. SMA branches are selected around the pancreaticoduodenal arcade with no abnormality seen. IMPRESSION: Mesenteric angiogram demonstrates no definite extravasation of contrast. The celiac trunk was not accessible, probably due to significant ostial stenosis or median arcuate ligament compression. Dictated by: Dictated on workstation # [id number]
--- NOTE | 2016-09-18 08:31 | OPERATIVE REPORT ---
PROCEDURE PHYSICIAN: PHUONG RODRIGUEZ DATE OF PROCEDURE: 09/16/2016 PROCEDURE: 1. Upper GI endoscopy. 2. Sclerotherapy. SURGEON: Elbert. INDICATION FOR THE PROCEDURE: This gentleman has been admitted with upper GI bleeding due to a duodenal ulcer. Following sclerotherapy, he responded and his hemoglobin was stable. Over the last 24 hours, his hemoglobin decreased to 6 grams and therefore repeating endoscopy was felt to be reasonable. Informed consent was obtained after reviewing the procedure in detail. DESCRIPTION OF PROCEDURE: He was brought to the endoscopy room and conscious sedation was achieved using Versed and fentanyl. The flexible gastroscope was introduced down the esophagus, past the stomach, into the proximal duodenum. FINDINGS: ESOPHAGUS: Quite tortuous. STOMACH: Blood clots, possibly due to bleeding in the duodenum. There was no bleeding source found within the stomach itself. DUODENUM: Multiple bleeding erosions were found along the first part. Sclerotherapy was repeated. The ulcer found at the bulb itself did not have any bleeding at this point. He tolerated the procedure well and was taken back to the nursing area in a stable condition. IMPRESSION: 1. Ongoing upper GI bleeding. 2. Duodenal erosions with oozing. 3. Sclerotherapy repeated. It is reasonable to perform colonoscopy for completion. Job ID: [id number] Dictated Date: 09/16/2016 13:43:12 Deployment Engineer Date: 09/18/2016 08:26:00 / chrissy HOWELL
--- NOTE | 2016-09-18 12:15 | OPERATIVE REPORT ---
PROCEDURE PHYSICIAN: PHUONG RODRIGUEZ DATE OF PROCEDURE: 09/17/2016 DIAGNOSIS: 1. GI bleeding. 2. Hypotension. PROCEDURE: 1. Ultrasound localization of right internal jugular vein. 2. Central venous catheter placement. SURGEON: Elbert INDICATION FOR THE PROCEDURE: This gentleman has been managed for upper GI bleeding with severe anemia and hypotension. To facilitate blood transfusion and to achieve invasive hemodynamic monitoring, placing a central venous catheter was felt to be appropriate. DESCRIPTION OF PROCEDURE: He was placed in Trendelenburg position and the Intensive Care Unit and the right side of his neck prepared and draped in the usual sterile manner. Internal jugular vein was localized using a 10 MHz ultrasound probe and a floppy guidewire introduced into the heart. Subcutaneous tract was gently dilated using a silastic sheath and a 15 cm long 7-Syriac, triple-lumen central venous catheter advanced using Seldinger technique. All the channels were aspirated and flushed with heparinized saline. The catheter was then secured using a silk suture and a dressing applied. He remained reasonably stable during the procedure Job ID: [id number] Dictated Date: 09/17/2016 13:02:27 Skating Carhop Date: 09/18/2016 12:12:01 / chrissy
--- NOTE | 2016-09-18 22:14 | DISCHARGE SUMMARY ---
DATE OF ADMISSION: 09/12/2016 DATE OF DISCHARGE/TRANSFER: 09/17/2016 DIAGNOSIS: 1. Upper GI bleeding. 2. Anemia with hemodynamic compromise due to GI bleed. This gentleman was admitted with anemia and was found to have a large duodenal ulcer with oozing. Sclerotherapy was performed and he remained stable for 2 days subsequently. He became anemic again with hypotension. Further endoscopy showed oozing erosions in the duodenum and sclerotherapy was repeated. Despite this, he continued to suffer anemia and therefore an attempt to perform therapeutic mesenteric arteriogram was made by our radiologist. Celiac access could not be cannulated, possibly due to stenosis and therefore it was felt appropriate to transfer him to a tertiary care facility. With this in mind, arrangements for his transfer to [facility] in [place] were made. Job ID: [id number] Dictated Date: 09/17/2016 16:14:42 Chief Clerk Date: 09/18/2016 22:06:40/emmie
== END 2016-09-17 17:00 | disposition short-term general hospital (02) | DRG 378 ==
LOC: EDUNIT# 09:05 → ER 09:06 → ICU 12:36 → 4TH 09-15 07:07 → UNDODISIN 09-16 13:00 → ICU 09-16 15:43
PROVIDERS: ADMIT Internal Medicine; ATTEND Internal Medicine
PROC: 0W3P8ZZ Control Bleeding in Gastrointestinal Tract, Via Natural or Artificial Opening Endoscopic (ICD-10-PCS; 2016-09-14)
PROC: 0DB68ZX Excision of Stomach, Via Natural or Artificial Opening Endoscopic, Diagnostic (ICD-10-PCS; principal; 2016-09-14 09:10)
PROC: 0W3P8ZZ Control Bleeding in Gastrointestinal Tract, Via Natural or Artificial Opening Endoscopic (ICD-10-PCS; 2016-09-16)
PROC: B4141ZZ Fluoroscopy of Superior Mesenteric Artery using Low Osmolar Contrast (ICD-10-PCS; 2016-09-17)
PROC: B4151ZZ Fluoroscopy of Inferior Mesenteric Artery using Low Osmolar Contrast (ICD-10-PCS; 2016-09-17)
PROC: B4101ZZ Fluoroscopy of Abdominal Aorta using Low Osmolar Contrast (ICD-10-PCS; 2016-09-17)
DX: K26.4 Chronic or unspecified duodenal ulcer with hemorrhage (principal); S32.019A Unspecified fracture of first lumbar vertebra, initial encounter for closed fracture; S22.43XA Multiple fractures of ribs, bilateral, initial encounter for closed fracture; K59.09 Other constipation; F20.9 Schizophrenia, unspecified; Z66 Do not resuscitate; E11.9 Type 2 diabetes mellitus without complications; Z79.4 Long term (current) use of insulin; F41.9 Anxiety disorder, unspecified; W19.XXXA Unspecified fall, initial encounter; Y99.8 Other external cause status
CPT/HCPCS: 36246; 36247; 36415; 51701; 70450; 71010; 72170; 74000; 74176; 75726; 75774; 76937; 80048; 80053; 81000; 82805; 82962; 83735; 84100; 85007; 85014; 85018; 85025; 85027; 85610; 85730; 86141; 86850; 86900; 86901; 86920; 87070; 87205; 88305; 88342; 94002; 94799; 96360

== ENCOUNTER → 2016-11-18 | Outpatient (CLI) | payer MEDICARE ==
[~2016-11-18] MED LIST changes: +CIPR500T4 PO; +GLIP10TA13 PO
== END ==
LOC: PREOP 05:35
PROVIDERS: ATTEND Surgery
DX: Z01.818 Encounter for other preprocedural examination (principal); K92.2 Gastrointestinal hemorrhage, unspecified

== ENCOUNTER → 2017-02-10 | Outpatient (CLI) | payer MEDICARE ==
[2017-02-10 08:15] LABS: BASOPHILS % (AUTO) 0 % (0-10); EOSINOPHILS # (AUTO) 0.4 10^3/uL (0.0-0.3); EOSINOPHILS % (AUTO) 5 % (0-10); LYMPHOCYTES # (AUTO) 1.1 X 10^3 (1.0-4.0); LYMPHOCYTES % (AUTO) 16 % (12-44); MEAN CORPUSCULAR HEMOGLOBIN 28 PG (25-34); MEAN CORPUSCULAR HGB CONC 32 G/DL (32-36); MEAN CORPUSCULAR VOLUME 85 FL (80-99); MEAN PLATELET VOLUME 10.3 FL (7.4-10.4); MONOCYTES # (AUTO) 0.8 X 10^3 (0.0-1.0); MONOCYTES % (AUTO) 12 % (0-12); NEUTROPHILS # (AUTO) 4.7 X 10^3 (1.8-7.8); NEUTROPHILS % (AUTO) 67 % (42-75); PLATELET COUNT 306 10^3/uL (130-400); RED BLOOD COUNT 3.46 10^6/uL (4.35-5.85); RED CELL DISTRIBUTION WIDTH 14.9 % (10.0-14.5)
[2017-02-10 08:37] LABS: ALBUMIN 3.9 GM/DL (3.2-4.5); BILIRUBIN,TOTAL 0.3 MG/DL (0.1-1.0); CALCIUM 9.4 MG/DL (8.5-10.1); CREATININE SERUM 1.93 MG/DL (0.60-1.30); POTASSIUM 4.4 MMOL/L (3.6-5.0); TOTAL PROTEIN 6.7 GM/DL (6.4-8.2)
== END ==
LOC: LAB 07:49
PROVIDERS: ATTEND Family Medicine
DX: E11.65 Type 2 diabetes mellitus with hyperglycemia (principal); D62 Acute posthemorrhagic anemia
CPT/HCPCS: 36415; 80053; 83036; 85025

== ENCOUNTER → 2017-02-19 | Outpatient (CLI) | payer MEDICARE ==
--- NOTE | 2017-02-19 11:55 | Diagnostic Imaging Report ---
EXAMINATION: Modified barium swallow. Indication: Dysphagia Different consistencies of fluid and food was given mixed with barium and swallowing was visualized under fluoroscopy. FLUOROSCOPY TIME: 2 minutes and 10 seconds FINDINGS: Minimal aspiration seen with thin liquids only. IMPRESSION: Minimal aspiration seen. Please refer to speech therapist's report for additional details . Dictated by: Dictated on workstation # [id number]
== END ==
LOC: RAD 09:34
PROVIDERS: ATTEND Family Medicine
DX: R13.10 Dysphagia, unspecified (principal); K22.10 Ulcer of esophagus without bleeding; K25.9 Gastric ulcer, unspecified as acute or chronic, without hemorrhage or perforation
CPT/HCPCS: 74230

== ENCOUNTER → 2017-03-18 | Outpatient (CLI) | payer MEDICARE ==
[2017-03-18 07:59] LABS: BASOPHILS % (AUTO) 1 % (0-10); EOSINOPHILS # (AUTO) 0.1 10^3/uL (0.0-0.3); EOSINOPHILS % (AUTO) 2 % (0-10); LYMPHOCYTES # (AUTO) 0.9 X 10^3 (1.0-4.0); LYMPHOCYTES % (AUTO) 14 % (12-44); MEAN CORPUSCULAR HEMOGLOBIN 28 PG (25-34); MEAN CORPUSCULAR HGB CONC 32 G/DL (32-36); MEAN CORPUSCULAR VOLUME 87 FL (80-99); MEAN PLATELET VOLUME 9.8 FL (7.4-10.4); MONOCYTES # (AUTO) 0.7 X 10^3 (0.0-1.0); MONOCYTES % (AUTO) 11 % (0-12); NEUTROPHILS # (AUTO) 4.5 X 10^3 (1.8-7.8); NEUTROPHILS % (AUTO) 72 % (42-75); PLATELET COUNT 286 10^3/uL (130-400); RED BLOOD COUNT 3.76 10^6/uL (4.35-5.85); RED CELL DISTRIBUTION WIDTH 17.7 % (10.0-14.5); WHITE BLOOD COUNT 6.3 10^3/uL (4.3-11.0)
[2017-03-18 08:17] LABS: CALCIUM 9.7 MG/DL (8.5-10.1); CREATININE SERUM 1.76 MG/DL (0.60-1.30); POTASSIUM 4.7 MMOL/L (3.6-5.0)
== END ==
LOC: LAB 07:21
PROVIDERS: ATTEND Family Medicine
DX: D50.9 Iron deficiency anemia, unspecified (principal); N28.9 Disorder of kidney and ureter, unspecified
CPT/HCPCS: 36415; 80048; 85025

== ENCOUNTER → 2017-03-30 | Outpatient (CLI) | payer MEDICARE ==
[2017-03-30 08:41] LABS: ALBUMIN 4.1 GM/DL (3.2-4.5); BILIRUBIN,TOTAL 0.4 MG/DL (0.1-1.0); CALCIUM 9.8 MG/DL (8.5-10.1); CREATININE SERUM 1.68 MG/DL (0.60-1.30); POTASSIUM 4.7 MMOL/L (3.6-5.0); TOTAL PROTEIN 6.8 GM/DL (6.4-8.2); URIC ACID 6.8 MG/DL (2.6-7.2); hs C REACTIVE PROTEIN 0.23 MG/DL (0.00-0.50)
== END ==
LOC: LAB 07:36
PROVIDERS: ATTEND Family Medicine
DX: M62.81 Muscle weakness (generalized) (principal)
CPT/HCPCS: 36415; 80053; 82550; 84550; 85652; 86038; 86060; 86141; 86430

== ENCOUNTER 2017-04-29 09:45 | Outpatient (RCR) | payer MEDICARE | END 2017-05-01 | disposition home or self-care (01) | PROVIDERS: ATTEND Family Medicine | DX: M54.31 Sciatica, right side (principal); M54.32 Sciatica, left side ==

== ENCOUNTER 2017-05-20 13:00 | Outpatient (RCR) | payer MEDICARE | END 2017-05-20 16:01 | disposition home or self-care (01) | PROVIDERS: ATTEND Family Medicine | DX: M54.31 Sciatica, right side (principal); M54.32 Sciatica, left side ==

== ENCOUNTER → 2017-08-24 | Outpatient (CLI) | payer MEDICARE ==
[2017-08-24 09:28] LABS: BASOPHILS % (AUTO) 0 % (0-10); EOSINOPHILS # (AUTO) 0.2 10^3/uL (0.0-0.3); EOSINOPHILS % (AUTO) 3 % (0-10); HEMATOCRIT 35 % (40-54); HEMOGLOBIN 12.1 G/DL (13.3-17.7); LYMPHOCYTES % (AUTO) 15 % (12-44); MEAN CORPUSCULAR HEMOGLOBIN 31 PG (25-34); MEAN CORPUSCULAR HGB CONC 34 G/DL (32-36); MEAN CORPUSCULAR VOLUME 90 FL (80-99); MEAN PLATELET VOLUME 10.2 FL (7.4-10.4); MONOCYTES # (AUTO) 0.6 X 10^3 (0.0-1.0); MONOCYTES % (AUTO) 10 % (0-12); NEUTROPHILS # (AUTO) 4.8 X 10^3 (1.8-7.8); NEUTROPHILS % (AUTO) 72 % (42-75); PLATELET COUNT 234 10^3/uL (130-400); RED BLOOD COUNT 3.93 10^6/uL (4.35-5.85); RED CELL DISTRIBUTION WIDTH 14.9 % (10.0-14.5); WHITE BLOOD COUNT 6.7 10^3/uL (4.3-11.0)
[2017-08-24 09:56] LABS: ALBUMIN 3.9 GM/DL (3.2-4.5); BILIRUBIN,TOTAL 0.4 MG/DL (0.1-1.0); CALCIUM 9.5 MG/DL (8.5-10.1); CREATININE SERUM 1.87 MG/DL (0.60-1.30); POTASSIUM 4.4 MMOL/L (3.6-5.0); TOTAL PROTEIN 6.9 GM/DL (6.4-8.2)
== END ==
LOC: LAB 09:12
PROVIDERS: ATTEND Family Medicine
DX: E11.65 Type 2 diabetes mellitus with hyperglycemia (principal); D50.9 Iron deficiency anemia, unspecified
CPT/HCPCS: 36415; 80053; 83036; 85025

== ENCOUNTER → 2017-11-25 | Outpatient (CLI) | payer MEDICARE ==
[2017-11-25 07:42] LABS: BASOPHILS % (AUTO) 0 % (0-10); EOSINOPHILS # (AUTO) 0.2 10^3/uL (0.0-0.3); EOSINOPHILS % (AUTO) 4 % (0-10); HEMATOCRIT 37 % (40-54); HEMOGLOBIN 12.5 G/DL (13.3-17.7); LYMPHOCYTES # (AUTO) 1.4 X 10^3 (1.0-4.0); LYMPHOCYTES % (AUTO) 21 % (12-44); MEAN CORPUSCULAR HEMOGLOBIN 31 PG (25-34); MEAN CORPUSCULAR HGB CONC 34 G/DL (32-36); MEAN CORPUSCULAR VOLUME 91 FL (80-99); MEAN PLATELET VOLUME 10.5 FL (7.4-10.4); MONOCYTES # (AUTO) 0.8 X 10^3 (0.0-1.0); MONOCYTES % (AUTO) 12 % (0-12); NEUTROPHILS # (AUTO) 4.2 X 10^3 (1.8-7.8); NEUTROPHILS % (AUTO) 63 % (42-75); PLATELET COUNT 304 10^3/uL (130-400); RED BLOOD COUNT 4.06 10^6/uL (4.35-5.85); RED CELL DISTRIBUTION WIDTH 14.7 % (10.0-14.5); WHITE BLOOD COUNT 6.6 10^3/uL (4.3-11.0)
[2017-11-25 08:00] LABS: ALBUMIN 4.2 GM/DL (3.2-4.5); BILIRUBIN,TOTAL 0.3 MG/DL (0.1-1.0); CALCIUM 10.1 MG/DL (8.5-10.1); CREATININE SERUM 1.84 MG/DL (0.60-1.30); POTASSIUM 4.4 MMOL/L (3.6-5.0); TOTAL PROTEIN 7.6 GM/DL (6.4-8.2)
== END ==
LOC: LAB 07:24
PROVIDERS: ATTEND Family Medicine
DX: E11.40 Type 2 diabetes mellitus with diabetic neuropathy, unspecified (principal); D64.9 Anemia, unspecified
CPT/HCPCS: 36415; 80053; 83036; 85025

== ENCOUNTER → 2018-02-24 | Outpatient (CLI) | payer MEDICARE ==
[2018-02-24 08:08] LABS: BASOPHILS % (AUTO) 0 % (0-10); EOSINOPHILS # (AUTO) 0.2 10^3/uL (0.0-0.3); EOSINOPHILS % (AUTO) 3 % (0-10); HEMATOCRIT 35 % (40-54); HEMOGLOBIN 12.3 G/DL (13.3-17.7); LYMPHOCYTES # (AUTO) 1.5 X 10^3 (1.0-4.0); LYMPHOCYTES % (AUTO) 20 % (12-44); MEAN CORPUSCULAR HEMOGLOBIN 31 PG (25-34); MEAN CORPUSCULAR HGB CONC 35 G/DL (32-36); MEAN CORPUSCULAR VOLUME 90 FL (80-99); MEAN PLATELET VOLUME 10.9 FL (7.4-10.4); MONOCYTES # (AUTO) 0.7 X 10^3 (0.0-1.0); MONOCYTES % (AUTO) 10 % (0-12); NEUTROPHILS # (AUTO) 4.9 X 10^3 (1.8-7.8); NEUTROPHILS % (AUTO) 67 % (42-75); PLATELET COUNT 299 10^3/uL (130-400); RED BLOOD COUNT 3.93 10^6/uL (4.35-5.85); RED CELL DISTRIBUTION WIDTH 14.4 % (10.0-14.5); WHITE BLOOD COUNT 7.3 10^3/uL (4.3-11.0)
[2018-02-24 08:31] LABS: ALBUMIN 4.2 GM/DL (3.2-4.5); BILIRUBIN,TOTAL 0.4 MG/DL (0.1-1.0); CREATININE SERUM 2.42 MG/DL (0.60-1.30); POTASSIUM 4.5 MMOL/L (3.6-5.0); TOTAL PROTEIN 7.2 GM/DL (6.4-8.2)
[2018-02-25 06:32] LABS: HEPATITIS C ANTIBODY C Non-Reactive (Non-Reactive)
== END ==
LOC: LAB 07:48
PROVIDERS: ATTEND Family Medicine
DX: E11.9 Type 2 diabetes mellitus without complications (principal); N28.9 Disorder of kidney and ureter, unspecified; D64.9 Anemia, unspecified; R53.83 Other fatigue; Z11.59 Encounter for screening for other viral diseases
CPT/HCPCS: 36415; 80053; 83036; 84443; 85025; 86803

== ENCOUNTER → 2018-05-30 | Outpatient (CLI) | payer MEDICARE ==
[2018-05-30 13:28] LABS: ALBUMIN 4.1 GM/DL (3.2-4.5); BILIRUBIN,TOTAL 0.3 MG/DL (0.1-1.0); CREATININE SERUM 2.16 MG/DL (0.60-1.30); POTASSIUM 4.9 MMOL/L (3.6-5.0)
[2018-05-30 13:51] LABS: FREE T4 (FREE THYROXINE) 1.25 NG/DL (0.70-1.48)
--- NOTE | 2018-05-30 14:30 | Diagnostic Imaging Report ---
INDICATION: Shortness of air. COMPARISON: 09/17/2016. FINDINGS: Frontal and lateral radiographic views of the chest were obtained and show normal cardiac silhouette and pulmonary vasculature. There are minimal patchy alveolar opacities within the left base. Right lung is relatively clear. No large effusion or pneumothorax is seen on either side. Bony structures show no gross acute abnormalities. IMPRESSION: Probable patchy atelectasis in the left base. Infiltrate not entirely excluded. Dictated by: Dictated on workstation # [id number]
== END ==
LOC: RAD 12:48
PROVIDERS: ATTEND Family Medicine
DX: R06.02 Shortness of breath (principal); R53.83 Other fatigue
CPT/HCPCS: 36415; 71046; 80053; 83036; 84439; 84443

== ENCOUNTER → 2018-07-04 | Outpatient (CLI) | payer MEDICARE | LOC: CARD 12:35 | PROVIDERS: ATTEND Family Medicine | DX: I10 Essential (primary) hypertension (principal); R07.9 Chest pain, unspecified; R06.00 Dyspnea, unspecified; I08.0 Rheumatic disorders of both mitral and aortic valves | CPT/HCPCS: 93306 ==

== ENCOUNTER → 2018-09-02 | Outpatient (CLI) | payer MEDICARE ==
[2018-09-02 09:55] LABS: BASOPHILS % (AUTO) 0 % (0-10); EOSINOPHILS # (AUTO) 0.2 10^3/uL (0.0-0.3); EOSINOPHILS % (AUTO) 3 % (0-10); HEMATOCRIT 37 % (40-54); HEMOGLOBIN 12.2 G/DL (13.3-17.7); LYMPHOCYTES # (AUTO) 1.4 X 10^3 (1.0-4.0); LYMPHOCYTES % (AUTO) 23 % (12-44); MEAN CORPUSCULAR HEMOGLOBIN 30 PG (25-34); MEAN CORPUSCULAR HGB CONC 33 G/DL (32-36); MEAN CORPUSCULAR VOLUME 92 FL (80-99); MEAN PLATELET VOLUME 11.6 FL (7.4-10.4); MONOCYTES # (AUTO) 0.7 X 10^3 (0.0-1.0); MONOCYTES % (AUTO) 12 % (0-12); NEUTROPHILS # (AUTO) 3.6 X 10^3 (1.8-7.8); NEUTROPHILS % (AUTO) 61 % (42-75); PLATELET COUNT 204 10^3/uL (130-400); RED CELL DISTRIBUTION WIDTH 16.4 % (10.0-14.5); WHITE BLOOD COUNT 5.9 10^3/uL (4.3-11.0)
[2018-09-02 10:22] LABS: ALBUMIN 4.1 GM/DL (3.2-4.5); BILIRUBIN,TOTAL 0.3 MG/DL (0.1-1.0); CALCIUM 10.2 MG/DL (8.5-10.1); CREATININE SERUM 2.01 MG/DL (0.60-1.30)
== END ==
LOC: LAB 09:38
PROVIDERS: ATTEND Family Medicine
DX: E11.65 Type 2 diabetes mellitus with hyperglycemia (principal)
CPT/HCPCS: 36415; 80053; 83036; 85025

== ENCOUNTER 2018-09-25 21:08 | Emergency (ER) | payer MEDICARE ==
[~2018-09-25] VITALS: Ht 182.9 cm; Wt 93.0 kg
[2018-09-26] MEDS ORDERED: LORazepam 0.5 MG (ATIVAN) TABLET PO STA (00:59)
--- NOTE | 2018-09-26 01:15 | ED Psychosocial ---
General Chief Complaint: Psych/Social Disorder Stated Complaint: ANXIETY Nursing Triage Note: pt reports abd pain, trouble walking, unable to sleep. hx of anxiety Source: patient, family (Cousin/D POA) Exam Limitations: clinical condition (RACHELE RENDON) History of Present Illness Date Seen by Provider: Sep 26, 2018 Time Seen by Provider: 00:57 Initial Comments The patient presents to ER by EMS from home with chief complaint of anxiety. He has a history of schizophrenia but he's been independent and high functioning up until the last month or 2 according to his cousin who takes care of him. He lives alone but does not drive. About 3 weeks ago they went to Dr. Gunn the PCP because he was having some complaints of weakness tiredness anxiety and complaining about the TV and radio. She did some labs find anything significant. His cousin says that his psych meds and has not been changed in the last 20 years and wonders if maybe he needs them addressed and perhaps even a stay inpatient at [facility] would be in order. He has not ever stated [facility] before. He played shortness of breath fever chills cough dysuria discharge diarrhea or constipation. He says he does have a little back pain from sitting in the chairs out in the lobby and will occasionally use Tylenol for his chronic back pain but he's not having enough pain at this time to want anything for it. (RACHELE RENDON) Allergies and Home Medications Allergies Coded Allergies: No Known Drug Allergies (Verified , 10/23/08) Home Medications Benztropine Mesylate 0.5 Mg Tablet, 0.5 MG PO BID, (Reported) Ciprofloxacin HCl 500 Mg Tablet, 500 MG PO BID, (Reported) 10 DAY THERAPY FILLED 09-08-16 Docusate Sodium 100 Mg Capsule, 100 MG PO DAILY, (Reported) Glipizide 10 Mg Tablet, 10 MG PO DAILY, (Reported) Lorazepam 1 Mg Tab, 1 MG PO BID, (Reported) Lakes[place]ore-3 Fatty Acids/Fish Oil 1 Each Capsule, 1,000 MG PO DAILY, (Reported) Risperidone 3 Mg Tablet, 3 MG PO BID, (Reported) Simvastatin 20 Mg Tablet, 20 MG PO HS, (Reported) Patient Home Medication List Home Medication List Reviewed: Yes (RACHELE RENDON) Review of Systems Constitutional: No chills, No malaise EENTM: No ear discharge, No ear pain Respiratory: No cough, No short of breath Cardiovascular: No chest pain, No edema, No Hx of Intervention, No palpitations Gastrointestinal: No abdominal pain, No constipation, No diarrhea Genitourinary: No discharge, No dysuria Musculoskeletal: back pain; No joint pain (RACHELE RENDON) Past Khkfzup-Zcswws-Nbzxdn Hx Patient Social History Alcohol Use: Denies Use Recreational Drug Use: No Smoking Status: Never a Smoker Recent Foreign Travel: No Contact w/Someone Who Travel: No Recent Infectious Disease Expo: No Recent Hopitalizations: Yes (RACHELE RENDON) Immunizations Up To Date Date of Influenza Vaccine: May 02, 2016 (RACHELE RENDON) Seasonal Allergies Seasonal Allergies: No (RACHELE RENDON) Past Medical History Surgeries: Yes (LEFT ARM - FX REPAIR) Orthopedic Respiratory: No Cardiac: No Neurological: No Reproductive Disorders: No Genitourinary: Yes UTI-Chronic Gastrointestinal: Yes (Constipation) Musculoskeletal: No Endocrine: Yes Diabetes, Non-Insulin dep HEENT: No Cancer: No Psychosocial: Yes Anxiety, Schizophrenia Integumentary: No Blood Disorders: No Adverse Reaction/Blood Tranf: No (RACHELE RENDON) Family Medical History Patient reports no known family medical history. No Pertinent Family Hx (RACHELE RENDON) Physical Exam Vital Signs - First Documented 09/25/18 21:41 Temp 94.2 Pulse 61 Resp 20 B/P (MAP) 140/70 (93) Pulse Ox 99 O2 Delivery Room Air (JOJO MENCHACA MD) Capillary Refill : Less Than 3 Seconds (RACHELE RENDON) Height, Weight, BMI Height: 6'0.00" Weight: 205lbs. 0.0oz. [id number]; 21.2 BMI Method:Estimated General Appearance: no apparent distress, other (Disheveled) HEENT: PERRL/EOMI, normal ENT inspection, pharynx normal Neck: full range of motion, normal inspection Respiratory: lungs clear, normal breath sounds, no respiratory distress, no accessory muscle use Cardiovascular: normal peripheral pulses, regular rate, rhythm, no edema Peripheral Pulses: 2+ Radial Pulses (R), 2+ Radial Pulses (L) Gastrointestinal: normal bowel sounds, non tender, soft Extremities: normal range of motion, non-tender, normal inspection, normal capillary refill Neurologic/Psychiatric: no motor/sensory deficits, alert, normal mood/affect, oriented x 3 Appearance/Memory: no memory impairment, disheveled, impaired insight Behavior/Eye Contact: cooperative, avoids eye contact, decreased rate of speech Thoughts/Hallucinations: visual hallucinations (Stated that the TV was coming out of him) Skin: normal color, warm/dry (RACHELE RENDON) Procedures/Interventions Date of ETT Placement: Sep 17, 2016 Time of ETT Placement: 1530 (RACHELE RENDON) Progress/Results/Core Measures Results/Orders Lab Results Laboratory Tests Test 09/26/18 01:36 09/26/18 03:11 Range/Units White Blood Count 6.8 4.3-11.0 10^3/uL Red Blood Count 4.34 L 4.35-5.85 10^6/uL Hemoglobin 12.9 L 13.3-17.7 G/DL Hematocrit 39 L 40-54 % Mean Corpuscular Volume 90 80-99 FL Mean Corpuscular Hemoglobin 30 25-34 PG Mean Corpuscular Hemoglobin Concent 33 32-36 G/DL Red Cell Distribution Width 17.0 H 10.0-14.5 % Platelet Count 201 130-400 10^3/uL Mean Platelet Volume 12.2 H 7.4-10.4 FL Neutrophils (%) (Auto) 84 H 42-75 % Lymphocytes (%) (Auto) 8 L 12-44 % Monocytes (%) (Auto) 7 0-12 % Eosinophils (%) (Auto) 1 0-10 % Basophils (%) (Auto) 0 0-10 % Neutrophils # (Auto) 5.8 1.8-7.8 X 10^3 Lymphocytes # (Auto) 0.5 L 1.0-4.0 X 10^3 Monocytes # (Auto) 0.5 0.0-1.0 X 10^3 Eosinophils # (Auto) 0.1 0.0-0.3 10^3/uL Basophils # (Auto) 0.0 0.0-0.1 10^3/uL Sodium Level 143 135-145 MMOL/L Potassium Level 5.3 H 3.6-5.0 MMOL/L Chloride Level 109 H 98-107 MMOL/L Carbon Dioxide Level 23 21-32 MMOL/L Anion Gap 11 5-14 MMOL/L Blood Urea Nitrogen 37 H 7-18 MG/DL Creatinine 1.83 H 0.60-1.30 MG/DL Estimat Glomerular Filtration Rate 36 BUN/Creatinine Ratio 20 Glucose Level 105 70-105 MG/DL Calcium Level 11.1 H 8.5-10.1 MG/DL Corrected Calcium 10.9 H 8.5-10.1 MG/DL Magnesium Level 2.3 1.8-2.4 MG/DL Total Bilirubin 0.3 0.1-1.0 MG/DL Aspartate Amino Transf (AST/SGOT) 36 H 5-34 U/L Alanine Aminotransferase (ALT/SGPT) 38 0-55 U/L Alkaline Phosphatase 94 40-136 U/L Total Creatine Kinase 144 30-200 U/L Troponin I < 0.028 <0.028 NG/ML C-Reactive Protein High Sensitivity 1.17 H 0.00-0.50 MG/DL Total Protein 7.4 6.4-8.2 GM/DL Albumin 4.3 3.2-4.5 GM/DL Thyroid Stimulating Hormone (TSH) 1.21 0.35-4.94 UIU/ML Urine Color YELLOW Urine Clarity CLEAR Urine pH 7 5-9 Urine Specific Gordon 1.005 L 1.016-1.022 Urine Protein NEGATIVE NEGATIVE Urine Glucose (UA) NEGATIVE NEGATIVE Urine Ketones NEGATIVE NEGATIVE Urine Nitrite NEGATIVE NEGATIVE Urine Bilirubin NEGATIVE NEGATIVE Urine Urobilinogen NORMAL NORMAL MG/DL Urine Leukocyte Esterase 1+ H NEGATIVE Urine RBC (Auto) NEGATIVE NEGATIVE Urine RBC NONE /HPF Urine WBC RARE /HPF Urine Squamous Epithelial Cells RARE /HPF Urine Crystals NONE /LPF Urine Bacteria NEGATIVE /HPF Urine Casts NONE /LPF Urine Mucus NEGATIVE /LPF Urine Other FEW SPERM H /HPF Urine Culture Indicated NO Urine Opiates Screen NEGATIVE NEGATIVE Urine Oxycodone Screen NEGATIVE NEGATIVE Urine Methadone Screen NEGATIVE NEGATIVE Urine Propoxyphene Screen NEGATIVE NEGATIVE Urine Barbiturates Screen NEGATIVE NEGATIVE Ur Tricyclic Antidepressants Screen NEGATIVE NEGATIVE Urine Phencyclidine Screen NEGATIVE NEGATIVE Urine Amphetamines Screen NEGATIVE NEGATIVE Urine Methamphetamines Screen NEGATIVE NEGATIVE Urine Benzodiazepines Screen POSITIVE H NEGATIVE Urine Cocaine Screen NEGATIVE NEGATIVE Urine Cannabinoids Screen NEGATIVE NEGATIVE (JOJO MENCHACA MD) Medications Given in ED Current Medications Medications Dose Ordered Sig/Aron Route Start Time Stop Time Status Last Admin Dose Admin Risperidone 3 mg ONCE ONCE PO 09/26/18 02:00 09/26/18 02:01 DC 09/26/18 02:02 3 MG Sodium Chloride 1,000 ml @ ud STK-MED ONCE .ROUTE 09/26/18 02:40 09/26/18 02:46 DC 09/26/18 02:45 500 MLS/HR (JOJO MENCHACA MD) Vital Signs/I&O 09/25/18 21:41 Temp 94.2 Pulse 61 Resp 20 B/P (MAP) 140/70 (93) Pulse Ox 99 O2 Delivery Room Air (JOJO MENCHACA MD) Blood Pressure Mean: 93 Progress Progress Note #1: Time: 01:14 Progress Note Sounds that he's having decompensation schizophrenic symptoms. We'll give him his evening dose of risperidone and 1 mg by mouth Ativan and check for sources of infection. We'll get an EKG, urinalysis, urine drug screen, troponin etc. We can see about an inpatient psychiatric admission. Echocardiogram by Dr. Riggins July 2018: Cavity and wall thickness are normal. EF 55-65%. Progress Note #2: Time: 04:07 Progress Note Nothing found on the initial workup to explain his decompensation of his schizophrenia and anxiety symptoms. He is very fearful fitful and gets distracted has tangential thinking. I think he would be a good candidate for some inpatient geropsychiatric placement and re-visiting his medications. The patient says he would be willing to go. Unfortunate signing him home and is not a good option as he is already called the police several times, and spent time with him because he gets lonely and fearful of things coming out of his radio and television. He also called the ambulance tonight for the same symptoms. He spoke to the cousin and she said she couldn't take him home tonight but she's not sure what she would do with him and she is at her wits end because she's been trying to work through the PCP office and the [facility] office and does not feel like she's getting anywhere on outpatient basis. Spoke to [facility] and they are going to call their on- call screener and set up a screening. Progress Note #3: Time: 04:21 Progress Note Spoke to Jacquelin the examiner at [facility] and she will come down to the ER to do an examination. (RACHELE RENDON) Progress Note : Progress Note Care of this patient was transitioned to me from Dr. Rendon at shift change. Patient has been calm and resting. He has eaten breakfast. Screening by [facility] is complete. He does qualify for the senior behavioral health unit. His will accompany him and transport him by private vehicle to [place] for admission. (JOJO MENCHACA MD) Initial ECG Impression Date: Sep 26, 2018 Initial ECG Impression Time: 04:06 Initial ECG Rate: 59 Initial ECG Rhythm: Normal Sinus Initial ECG Intervals: [place] (228) Initial ECG Impression: Normal, Nonspecific Changes Comment Left ventricular hypertrophy and first-degree AV block. Otherwise no ST elevation or depression. (RACHELE RENDON) Diagnostic Imaging Diagonstic Imaging: Xray Plain Films/CT/US/NM/MRI: chest (1v) Comments No acute cardiopulmonary processes noted on the one view chest x-ray. Reviewed: Reviewed by Me (RACHELE RENDON) Transfer of Care Time: 06:17 Care transferred to: Dr. Navarro (RACHELE RENDON) Departure Impression Primary Impression: Anxiety Additional Impressions: Schizophrenia, acute Disorganized behavior Disposition: 01 HOME, SELF-CARE Condition: Stable Departure-Patient Inst. Decision time for Depature: 07:50 (JOJO MENCHACA MD) Referrals: SHANIQUA GUNN DO (PCP/Family) Primary Care Physician Patient Instructions: Schizophrenia Add. Discharge Instructions: Follow instructions per [facility]. All discharge instructions reviewed with patient and/or family. Voiced understanding. Copy Copies To 1: SHANIQUA GUNN TITUS J Sep 26, 2018 01:14 JOJO MENCHACA MD Sep 26, 2018 08:00
[2018-09-26] MEDS ORDERED: risperiDONE 2 MG (RisperDAL) TAB PO ONE (01:30)
[2018-09-26] MEDS ORDERED: risperiDONE 1 MG (RisperDAL) TAB PO ONE ×2 (01:30→02:00)
[2018-09-26 01:54] LABS: BASOPHILS % (AUTO) 0 % (0-10); EOSINOPHILS # (AUTO) 0.1 10^3/uL (0.0-0.3); EOSINOPHILS % (AUTO) 1 % (0-10); HEMATOCRIT 39 % (40-54); HEMOGLOBIN 12.9 G/DL (13.3-17.7); LYMPHOCYTES # (AUTO) 0.5 X 10^3 (1.0-4.0); LYMPHOCYTES % (AUTO) 8 % (12-44); MEAN CORPUSCULAR HEMOGLOBIN 30 PG (25-34); MEAN CORPUSCULAR HGB CONC 33 G/DL (32-36); MEAN CORPUSCULAR VOLUME 90 FL (80-99); MEAN PLATELET VOLUME 12.2 FL (7.4-10.4); MONOCYTES # (AUTO) 0.5 X 10^3 (0.0-1.0); MONOCYTES % (AUTO) 7 % (0-12); NEUTROPHILS # (AUTO) 5.8 X 10^3 (1.8-7.8); NEUTROPHILS % (AUTO) 84 % (42-75); PLATELET COUNT 201 10^3/uL (130-400); WHITE BLOOD COUNT 6.8 10^3/uL (4.3-11.0)
[2018-09-26 02:07] LABS: ALANINE AMINOTRANSFERASE 38 U/L (0-55); ALBUMIN 4.3 GM/DL (3.2-4.5); ALKALINE PHOSPHATASE 94 U/L (40-136); BILIRUBIN,TOTAL 0.3 MG/DL (0.1-1.0); BUN/CREATININE RATIO 20; CALCIUM 11.1 MG/DL (8.5-10.1); CARBON DIOXIDE 23 MMOL/L (21-32); CHLORIDE 109 MMOL/L (98-107); CREATINE KINASE 144 U/L (30-200); CREATININE SERUM 1.83 MG/DL (0.60-1.30); GFR ESTIMATED 36; GLUCOSE 105 MG/DL (70-105); MAGNESIUM 2.3 MG/DL (1.8-2.4); POTASSIUM 5.3 MMOL/L (3.6-5.0); SODIUM 143 MMOL/L (135-145); TOTAL PROTEIN 7.4 GM/DL (6.4-8.2)
[2018-09-26] MEDS ORDERED: NS IV 1000 ML 1,000 ML ONE (02:40)
[2018-09-26 03:21] LABS: BILIRUBIN,URINE NEGATIVE (NEGATIVE); CLARITY,URINE CLEAR; COLOR,URINE YELLOW; GLUCOSE, URINE (UA) NEGATIVE (NEGATIVE); KETONES,URINE NEGATIVE (NEGATIVE); LEUKOCYTE ESTERASE ,URINE 1+ (NEGATIVE); NITRITE,URINE NEGATIVE (NEGATIVE); PH,URINE 7 (5-9); PROTEIN,URINE NEGATIVE (NEGATIVE); UROBILINOGEN,URINE NORMAL (NORMAL)
[2018-09-26 03:32] LABS: BACTERIA,URINE NEGATIVE /HPF; SQUAMOUS EPITHELIAL CELL,UR RARE /HPF; WBC,URINE RARE /HPF
[2018-09-26 03:33] LABS: AMPHETAMINE SCREEN, URINE NEGATIVE (NEGATIVE); BARBITURATE SCREEN URINE NEGATIVE (NEGATIVE); BENZODIAZEPINES SCREEN URINE POSITIVE (NEGATIVE); CANNABINOID SCREEN, URINE NEGATIVE (NEGATIVE); COCAINE SCREEN URINE NEGATIVE (NEGATIVE); METHADONE STAT NEGATIVE (NEGATIVE); METHAMPHETAMINE SCREEN URINE S NEGATIVE (NEGATIVE); OPIATE SCREEN URINE NEGATIVE (NEGATIVE); OXYCODONE STAT NEGATIVE (NEGATIVE); PROPOXYPHENE STAT NEGATIVE (NEGATIVE); TRICYCLIC ANTIDEPRESSANTS SCRE NEGATIVE (NEGATIVE); URINE OTHER FEW SPERM /HPF
--- NOTE | 2018-09-26 05:54 | Diagnostic Imaging Report ---
CLINICAL INDICATION: Patient with shortness of air. EXAM: Portable chest x-ray upright view. COMPARISONS: Chest x-ray dated 05/30/2018. FINDINGS: Lungs/pleura: Slight increased elevation right hemidiaphragm. There is mild bibasilar atelectasis or scarring. Otherwise, lungs are clear. There is no pneumothorax. There is no pleural effusion. Mediastinum: Unremarkable. Pulmonary vasculature: Unremarkable. Heart: Stable mild cardiomegaly. Bones/extrathoracic soft tissue: Bones show no interval significant abnormality. IMPRESSION: 1: There is no radiographic evidence of acute cardiopulmonary process. 2: Interval slight increased elevation right hemidiaphragm. 3: Mild bibasilar atelectasis. 4: Mild cardiomegaly with no significant pulmonary vascular congestion. Otherwise, there is no radiographic evidence of acute cardiopulmonary process. Dictated by: Dictated on workstation # [id number]
--- NOTE | 2018-09-26 06:54 | NUR ---
FOOD ORDER PLACED
--- NOTE | 2018-09-26 08:15 | NUR ---
SCREENER FROM [facility] WAS IN CONTACT WITH DR. ALEXIS ABOUT PT'S CARE. SHE STATED DR. ALEXIS WANTED A REPEAT POTASSIUM RAN TO SEE IF IT WAS COMING DOWN.
--- NOTE | 2018-09-26 08:23 | NUR ---
SCREENER FROM [facility] INFORMED THAT POTASSIUM IS GOING DOWN, NOW AT 4.9. SHE SAID [facility] WOULD CONTACT DR. ALEXIS WITH THE RESULTS.
--- NOTE | 2018-09-26 08:29 | NUR ---
PT DRESSED BY STUDENT NURSES AND WAITING TO BE DISCHARGED WE NEED THIS ROOM FOR ANOTHER PT. PT TAKEN TO FAMILY RM BY W/C.
[2018-09-26 08:30] VITALS: BP 100/67
== END 2018-09-26 09:01 | disposition home or self-care (01) ==
LOC: EDUNIT# 21:08 → ER 21:09
DX: F20.1 Disorganized schizophrenia (principal); F41.9 Anxiety disorder, unspecified; E11.9 Type 2 diabetes mellitus without complications; Z87.19 Personal history of other diseases of the digestive system; Z87.440 Personal history of urinary (tract) infections; Z79.4 Long term (current) use of insulin
CPT/HCPCS: 36415; 71045; 80053; 80306; 81000; 82550; 83735; 84443; 84484; 85025; 86141; 93005; 96360; 96361

== ENCOUNTER → 2020-01-23 | Outpatient (CLI) | payer MEDICARE ==
[2020-01-23 15:54] LABS: BILIRUBIN,URINE NEGATIVE (NEGATIVE); CLARITY,URINE CLEAR; COLOR,URINE YELLOW; GLUCOSE, URINE (UA) NEGATIVE (NEGATIVE); KETONES,URINE NEGATIVE (NEGATIVE); LEUKOCYTE ESTERASE ,URINE NEGATIVE (NEGATIVE); NITRITE,URINE NEGATIVE (NEGATIVE); PROTEIN,URINE NEGATIVE (NEGATIVE)
[2020-01-23 16:06] LABS: AMORPHOUS SEDIMENT,UR RARE AMOR URATES /LPF; BACTERIA,URINE NEGATIVE /HPF
== END ==
LOC: LABNPT 15:47
PROVIDERS: ATTEND Family Medicine
DX: R41.0 Disorientation, unspecified (principal); F22 Delusional disorders
CPT/HCPCS: 81000

== ENCOUNTER 2021-03-18 05:45 | Outpatient (CLI) | payer MEDICARE, MEDICAID ==
[~2021-03-18] VITALS: Ht 182.9 cm; Wt 81.7 kg
[~2021-03-18 05:45] MED LIST changes: -ALBU2.5V4 INH; -ATOR10TA66 PO; -CHOL200059 PO; -DOCU100T2 PO; -FLUV100T3 PO; -GABA-490 PO; -HYDR118S10 PO; -INSU100I14 SQ; -INSU100I29 SQ; -LORA10TA7 PO; -MELA1TAB27 PO; -MULT-1009 PO; -OLN5T PO; -OMEG1CAP13 PO; -PANT40TA52 PO; -VISCOUS XYLOCAINE PO
[2021-03-18 10:47] LABS: BASOPHILS # (AUTO) 0.1 10^3/uL (0.0-0.1); BASOPHILS % (AUTO) 1 % (0-10); EOSINOPHILS # (AUTO) 0.1 10^3/uL (0.0-0.3); EOSINOPHILS % (AUTO) 1 % (0-10); HEMATOCRIT 40 % (40-54); HEMOGLOBIN 13.2 g/dL (13.3-17.7); LYMPHOCYTES # (AUTO) 1.6 10^3/uL (1.0-4.0); LYMPHOCYTES % (AUTO) 15 % (12-44); MEAN CORPUSCULAR HEMOGLOBIN 30 pg (25-34); MEAN CORPUSCULAR HGB CONC 33 g/dL (32-36); MEAN CORPUSCULAR VOLUME 93 fL (80-99); MEAN PLATELET VOLUME 10.8 fL (9.0-12.2); MONOCYTES # (AUTO) 0.9 10^3/uL (0.0-1.0); MONOCYTES % (AUTO) 9 % (0-12); NEUTROPHILS # (AUTO) 8.1 10^3/uL (1.8-7.8); NEUTROPHILS % (AUTO) 74 % (42-75); PLATELET COUNT 302 10^3/uL (130-400); WHITE BLOOD COUNT 10.9 10^3/uL (4.3-11.0)
[2021-03-18 12:36] VITALS: BP 141/91
[2021-03-18] MEDS ORDERED: GABA-490 PO (13:21)
[2021-03-18] MEDS ORDERED: PANT40TA52 PO (13:21)
[2021-03-18] MEDS ORDERED: DOCU100T2 PO (13:21)
[2021-03-18] MEDS ORDERED: OLN5T PO (13:21)
[2021-03-18] MEDS ORDERED: CHOL200059 PO (13:21)
[2021-03-18] MEDS ORDERED: ALBU2.5V4 INH (13:21)
[2021-03-18] MEDS ORDERED: MULT-1009 PO (13:21)
[2021-03-18] MEDS ORDERED: INSU100I29 SQ (13:21)
[2021-03-18] MEDS ORDERED: LORA10TA7 PO (13:21)
[2021-03-18] MEDS ORDERED: MELA1TAB27 PO (13:21)
[2021-03-18] MEDS ORDERED: OMEG1CAP13 PO (13:21)
[2021-03-18] MEDS ORDERED: ATOR10TA66 PO (13:21)
[2021-03-18] MEDS ORDERED: INSU100I14 SQ (13:21)
[2021-03-18] MEDS ORDERED: FLUV100T3 PO (13:21)
== END 2021-03-18 13:23 | disposition home or self-care (01) ==
LOC: PREOP 05:45
PROVIDERS: ATTEND Otolaryngology Otolaryngology/Facial Plastic Surgery
DX: Z01.812 Encounter for preprocedural laboratory examination (principal); K14.8 Other diseases of tongue
CPT/HCPCS: 36415; 85025; 87081

== ENCOUNTER → 2021-03-18 | Outpatient (CLI) | payer MEDICARE, MEDICAID ==
[~2021-03-18] MED LIST changes: +ALBU2.5V4 INH; +ATOR10TA66 PO; +CHOL200059 PO; -CIPR500T4 PO; +CIPR500T5 PO; +DOCU100T2 PO; +FLUV100T3 PO; +GABA-490 PO; +HYDR118S10 PO; +INSU100I14 SQ; +INSU100I29 SQ; +LORA10TA7 PO; +MELA1TAB27 PO; +MULT-1009 PO; +OLN5T PO; +OMEG1CAP13 PO; +PANT40TA52 PO; +VISCOUS XYLOCAINE PO
[2021-03-18 11:04] LABS: ALBUMIN 4.2 GM/DL (3.2-4.5); BILIRUBIN,TOTAL 0.4 MG/DL (0.1-1.0); CALCIUM 10.5 MG/DL (8.5-10.1); CREATININE SERUM 2.48 MG/DL (0.60-1.30); POTASSIUM 5.4 MMOL/L (3.6-5.0); TOTAL PROTEIN 7.3 GM/DL (6.4-8.2)
--- NOTE | 2021-03-18 11:56 | Diagnostic Imaging Report ---
PROCEDURE: CT neck soft tissue without contrast. TECHNIQUE: Multiple contiguous axial images were obtained through the neck without the use of intravenous contrast. Auto Exposure Controls were utilized during the CT exam to meet ALARA standards for radiation dose reduction. INDICATION: Left tongue mass. COMPARISON: None. FINDINGS: Please note evaluation of the oral cavity and in particular the anterior and middle third of the tongue is suboptimal due to metallic artifact from dental amalgam. Within these limitations no discrete mass is seen in the tongue. The base of the tongue is unremarkable. The posterior nasopharynx and oropharynx demonstrate appropriate symmetry. There is no displacement of the parapharyngeal fat planes. There is no abnormal process evident within the prevertebral or retropharyngeal space. There is no evidence of abnormal thickening of the epiglottis or aryepiglottic folds. The vocal folds appear symmetric. The parotid and submandibular gland are unremarkable. The thyroid gland is prominent. No pathologically enlarged cervical lymph nodes are evident. No focal inflammatory changes are demonstrated. No soft tissue mass or fluid collection demonstrated. Atherosclerotic plaque is seen in the bilateral carotid bulbs. The visualized lung apices are clear. The visualized intracranial contents demonstrate no evidence of pathologic intracranial enhancement or intracranial mass effect. Visualized orbital contents are unremarkable. The visualized paranasal sinuses are clear. The mastoids and middle ears are clear. No acute osseous abnormality in the cervical spine. There is reversal of the normal lordotic curvature of the cervical spine centered at the C5-C6 level. IMPRESSION: 1. Limited evaluation of the oral cavity due to metallic artifact. No mass is identified in the oral cavity and aerodigestive tract. No pathologically enlarged lymphadenopathy in the neck. Recommend correlation with physical exam. 2. Prominent thyroid gland without discrete nodule. Recommend correlation with TSH levels and if indicated thyroid ultrasound to further evaluate. Dictated by: Dictated on workstation # [id number]
== END ==
LOC: RAD 11:15
PROVIDERS: ATTEND Otolaryngology Otolaryngology/Facial Plastic Surgery
DX: K14.8 Other diseases of tongue (principal)
CPT/HCPCS: 36415; 70490; 80053; 80061; 83036

== ENCOUNTER 2021-03-21 06:28 | Day surgery (SDC) | payer MEDICARE, MEDICAID ==
[2021-03-21] VITALS (13 sets, daily range): BP systolic 98–146; BP diastolic 47–80
[~2021-03-21] VITALS: Ht 182.9 cm; Wt 81.7 kg
[~2021-03-21 06:28] MED LIST changes: +ALBU2.5V4 INH; +ATOR10TA66 PO; +CHOL200059 PO; +DOCU100T2 PO; +FLUV100T3 PO; +GABA-490 PO; +INSU100I14 SQ; +INSU100I29 SQ; +LORA10TA7 PO; +MELA1TAB27 PO; +MULT-1009 PO; +OLN5T PO; +OMEG1CAP13 PO; +PANT40TA52 PO
[2021-03-21] MEDS ORDERED: LACTATED RINGERS 1,000 ML IV PRN ×2 (06:30)
[2021-03-21] MEDS ORDERED: NS IV 1000 ML 1,000 ML ONE (06:56)
[2021-03-21] MEDS ORDERED: ONDANSETRON 4 MG/2 ML (SDV) Z0FRAN ONE (06:58)
[2021-03-21] MEDS ORDERED: ROCURONIUM 10 MG/ML 5 ML SYRINGE IV ONE (06:58)
[2021-03-21] MEDS ORDERED: LIDOCAINE PF 2% 5 ML (XYLOCAINE) VIAL ONE (06:58)
[2021-03-21] MEDS ORDERED: fentaNYL INJ 100 MCG/2 ML AMP ONE (06:58)
[2021-03-21] MEDS ORDERED: GLYCOPYRROLATE 0.2 MG/ML (ROBINUL) 2 ML VIAL ONE (06:58)
[2021-03-21] MEDS ORDERED: NEOSTIGMINE 3 MG/3 ML VIAL ONE (06:58)
[2021-03-21] MEDS ORDERED: proPOfol 200 MG/20 ML (DIPRIVAN) VIAL IV ONE (06:58)
[2021-03-21] MEDS ORDERED: NS IV 1000 ML 1,000 ML IV SCH (07:00)
[2021-03-21] MEDS ORDERED: LIDOCAINE/EPI 1%-1:100,000 (XYLOCAINE) 20ML ONE (07:06)
--- NOTE | 2021-03-21 07:11 | Progress Note-Pre Operative ---
Pre-Operative Progress Note H&P Reviewed The H&P was reviewed, patient examined and no changes noted. Date Seen by Provider: Mar 21, 2021 Time Seen by Provider: 06:30 Date H&P Reviewed: Mar 21, 2021 Time H&P Reviewed: 06:30 Pre-Operative Diagnosis: Left Tongue MASS ROSE MAY MD Mar 21, 2021 07:11
--- NOTE | 2021-03-21 07:51 | Progress Note-Post Operative ---
Post-Operative Progess Note Surgeon (s)/Rheostat Assembler (s) Surgeon ROSE MAY MD Rheostat Assembler n/a Pre-Operative Diagnosis Left Tongue MASS Post-Operative Diagnosis same Post-Op Procedure Note Date of Procedure: Mar 21, 2021 Name of Procedure Performed: Incisional Biopsy of Left Tongue Mass Description & Findings Description and Findings: n/a Anesthesia Type get Estimated Blood Loss minimal Packing none. Specimen(s) collected/removed tongue mass-to pathology for frozen section ROSE MAY MD Mar 21, 2021 07:51
[2021-03-21] MEDS ORDERED: PHENYLEPHRINE 100 MCG/ML 10 ML (ANESTHESIA) SYR ONE (07:53)
[2021-03-21] MEDS ORDERED: HYDROcodone/APAP 7.5MG-325 MG/15 ML (LORTAB) UDC PO PRN (08:00)
[2021-03-21] MEDS ORDERED: ACETAMINOPHEN 325 MG TABLET PO PRN (08:00)
[2021-03-21] MEDS ORDERED: SEVOFLURANE (ULTANE) 15 ML INHAL SOLN ONE (08:04)
[2021-03-21] MEDS ORDERED: VISCOUS XYLOCAINE PO (08:24)
[2021-03-21] MEDS ORDERED: HYDR118S10 PO (08:24)
--- NOTE | 2021-03-21 09:29 | Anesthesia-General Post-Op ---
General Patient Condition Mental Status/LOC: Same as Preop Cardiovascular: Satisfactory Nausea/Vomiting: Absent Respiratory: Satisfactory Pain: Controlled Complications: Absent Post Op Complications Complications None Follow Up Care/Instructions Patient Instructions None needed. Anesthesia/Patient Condition Patient Condition Patient is doing well, no complaints, stable vital signs, no apparent adverse anesthesia problems. CECILE MUHAMMAD DO Mar 21, 2021 09:29
== END 2021-03-21 10:20 | disposition home or self-care (01) ==
LOC: SDC 06:28
PROVIDERS: ATTEND Otolaryngology Otolaryngology/Facial Plastic Surgery
DX: C02.9 Malignant neoplasm of tongue, unspecified (principal); E78.5 Hyperlipidemia, unspecified; E11.9 Type 2 diabetes mellitus without complications; F32.9 Major depressive disorder, single episode, unspecified; Z79.899 Other long term (current) drug therapy; Z79.4 Long term (current) use of insulin

== ENCOUNTER 2021-04-16 10:58 | Outpatient (CLI) | payer MEDICARE, MEDICAID ==
[~2021-04-16] VITALS: Ht 182.9 cm; Wt 81.7 kg
[~2021-04-16 10:58] MED LIST changes: +HYDR118S10 PO; +VISCOUS XYLOCAINE PO
[2021-04-17] MEDS ORDERED: XYLOCAINE VISCOUS PO (10:20)
[2021-04-17] MEDS ORDERED: HYDR15SO8 PO (10:20)
== END 2021-04-16 13:20 | disposition home or self-care (01) ==
LOC: PREOP 10:58
PROVIDERS: ATTEND Otolaryngology Otolaryngology/Facial Plastic Surgery
DX: Z01.818 Encounter for other preprocedural examination (principal)

== ENCOUNTER 2021-04-17 05:58 | Day surgery (SDC) | payer MEDICARE, MEDICAID ==
[~2021-04-17] VITALS: Ht 182.9 cm; Wt 81.7 kg
[2021-04-17] VITALS (12 sets, daily range): BP systolic 121–148; BP diastolic 7–92
[2021-04-17] MEDS: LACTATED RINGERS 1,000 ML IV PRN ×3 (06:33→11:10)
[2021-04-17] MEDS ORDERED: LIDOCAINE/EPI 1%-1:100,000 (XYLOCAINE) 20ML ONE (06:59)
[2021-04-17] MEDS ORDERED: SUCCINYLCHOLINE INJ 100 MG/5 ML SYR/VIAL ONE (07:12)
[2021-04-17] MEDS ORDERED: LIDOCAINE PF 2% 5 ML (XYLOCAINE) VIAL ONE (07:12)
[2021-04-17] MEDS ORDERED: proPOfol 200 MG/20 ML (DIPRIVAN) VIAL IV ONE (07:12)
[2021-04-17] MEDS ORDERED: fentaNYL INJ 100 MCG/2 ML AMP ONE (07:12)
[2021-04-17] MEDS ORDERED: ROCURONIUM 10 MG/ML 5 ML SYRINGE IV ONE (07:12)
[2021-04-17] MEDS ORDERED: ONDANSETRON 4 MG/2 ML (SDV) Z0FRAN ONE (07:12)
--- NOTE | 2021-04-17 07:20 | Progress Note-Pre Operative ---
Pre-Operative Progress Note H&P Reviewed The H&P was reviewed, patient examined and no changes noted. 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
--- NOTE | 2021-04-17 08:51 | Progress Note-Post Operative ---
Post-Operative Progess Note Surgeon (s)/Outside Event Sales Specialist (s) Surgeon ROSE MAY MD Outside Event Sales Specialist n/a Pre-Operative Diagnosis SCCA of Left LAteral Tongue Post-Operative Diagnosis same Post-Op Procedure Note Date of Procedure: Apr 17, 2021 Name of Procedure Performed: Left Partial Glossectomy with Primary Repair Description & Findings Description and Findings: n/a Anesthesia Type get Estimated Blood Loss minimal Packing none. Specimen(s) collected/removed left tongue mass ROSE MAY MD Apr 17, 2021 08:51
[2021-04-17] MEDS ORDERED: HYDROcodone/APAP 7.5MG-325 MG/15 ML (LORTAB) UDC PO PRN (09:00)
[2021-04-17] MEDS ORDERED: ACETAMINOPHEN 325 MG TABLET PO PRN (09:00)
[2021-04-17] MEDS ORDERED: SEVOFLURANE (ULTANE) 15 ML INHAL SOLN ONE (09:19)
[2021-04-17] MEDS ORDERED: NEOSTIGMINE 3 MG/3 ML VIAL ONE (09:20)
[2021-04-17] MEDS ORDERED: PHENYLEPHRINE 100 MCG/ML 10 ML (ANESTHESIA) SYR ONE (09:20)
[2021-04-17] MEDS ORDERED: GLYCOPYRROLATE 0.2 MG/ML (ROBINUL) 2 ML VIAL ONE (09:20)
--- NOTE | 2021-04-17 09:42 | Anesthesia-General Post-Op ---
General Patient Condition Mental Status/LOC: Same as Preop Cardiovascular: Satisfactory Nausea/Vomiting: Absent Respiratory: Satisfactory Pain: Controlled Complications: Absent Post Op Complications Complications None Follow Up Care/Instructions Patient Instructions None needed. Anesthesia/Patient Condition Patient Condition Patient is doing well, no complaints, stable vital signs, no apparent adverse anesthesia problems. No complications reported per nursing. JAZMIN LAWSON CRNA Apr 17, 2021 09:42
[2021-04-17] MEDS ORDERED: fentaNYL INJ 100 MCG/2 ML AMP IVP ONE (09:45)
[2021-04-17] MEDS ORDERED: ONDANSETRON 4 MG/2 ML (SDV) Z0FRAN IVP PRN (09:45)
[2021-04-17] MEDS ORDERED: morphine INJ 10 MG/ML 1ML (SYR OR VIAL) IVP ONE (09:45)
[2021-04-17] MEDS ORDERED: XYLOCAINE VISCOUS PO (10:20)
[2021-04-17] MEDS ORDERED: HYDR15SO8 PO (10:20)
[2021-04-17] MEDS ORDERED: LIDOCAINE 2% VISCOUS 15 ML UDC PO SCH (12:00)
== END 2021-04-17 11:00 | disposition home or self-care (01) ==
LOC: SDC 05:58
PROVIDERS: ATTEND Otolaryngology Otolaryngology/Facial Plastic Surgery
DX: C02.9 Malignant neoplasm of tongue, unspecified (principal); J45.909 Unspecified asthma, uncomplicated; K21.9 Gastro-esophageal reflux disease without esophagitis; E11.9 Type 2 diabetes mellitus without complications; F20.9 Schizophrenia, unspecified; Z79.899 Other long term (current) drug therapy; Z79.4 Long term (current) use of insulin
CPT/HCPCS: 87081; 88309; 88331; 88332

== ENCOUNTER 2021-06-07 17:44 | Emergency (ER) | payer MEDICARE, MEDICAID ==
[~2021-06-07 17:44] MED LIST changes: +HYDR15SO8 PO; +XYLOCAINE VISCOUS PO
[2021-06-07 17:55] VITALS: BP 125/80
[2021-06-07 17:58] LABS: BASOPHILS # (AUTO) 0.1 10^3/uL (0.0-0.1); BASOPHILS % (AUTO) 1 % (0-10); EOSINOPHILS # (AUTO) 0.2 10^3/uL (0.0-0.3); EOSINOPHILS % (AUTO) 2 % (0-10); HEMATOCRIT 36 % (40-54); LYMPHOCYTES % (AUTO) 20 % (12-44); MEAN CORPUSCULAR HEMOGLOBIN 30 pg (25-34); MEAN CORPUSCULAR HGB CONC 33 g/dL (32-36); MEAN CORPUSCULAR VOLUME 91 fL (80-99); MEAN PLATELET VOLUME 11.3 fL (9.0-12.2); MONOCYTES # (AUTO) 0.8 10^3/uL (0.0-1.0); MONOCYTES % (AUTO) 8 % (0-12); NEUTROPHILS % (AUTO) 70 % (42-75); PLATELET COUNT 268 10^3/uL (130-400)
--- NOTE | 2021-06-07 17:59 | ED General ---
General Chief Complaint: Glucose Problems Stated Complaint: LOW BLOOD SUGAR Source of Information: Patient Exam Limitations: No Limitations History of Present Illness Date Seen by Provider: Jun 07, 2021 Time Seen by Provider: 17:56 Initial Comments To ER by EMS from [facility] with reports of possible stroke. He was last known to be well at about 5 PM this evening when his blood sugar was 106 he was then given 12 units of NovoLog. He didn't eat much of his dinner and upon EMS arrival at about 530 he was noted to have a blood sugar of 26. He was given D10 with resultant increase of glucose upon arrival to ER to 166 with improved mentation and alertness. He was noted to be diaphoretic as his shirt was wet but his skin was no longer wet. He keeps asking "what happened, I don't remember anything". Timing/Duration: 1-3 Hours Severity: Moderate Associated Systoms: Denies Symptoms Allergies and Home Medications Allergies Coded Allergies: No Known Drug Allergies (Verified , 10/23/08) Patient Home Medication List Home Medication List Reviewed: Yes Albuterol Sulfate (Albuterol Sulfate) 2.5 Mg/3 Ml Vial.neb, 2.5 MG INH Q4H PRN for WHEEZING, (Reported) Entered as Reported by: LUCERO MAYNARD on 03/18/21 1321 Atorvastatin Calcium (Atorvastatin Calcium) 10 Mg Tablet, 10 MG PO MoWeFr, (Reported) Entered as Reported by: LUCERO MAYNARD on 03/18/21 1321 Cholecalciferol (Vitamin D3) (Vitamin D3) 50 Mcg Tablet, 50 MCG PO DAILY, (Reported) Entered as Reported by: LUCERO MAYNARD on 03/18/21 1321 Docusate Sodium (Docusate Sodium) 100 Mg Tablet, 100 MG PO DAILY, (Reported) Entered as Reported by: LUCERO MAYNARD on 03/18/21 1321 Fluvoxamine Maleate (Fluvoxamine Maleate) 100 Mg Tablet, 100 MG PO BID, (Reported) Entered as Reported by: LUCERO MAYNARD on 03/18/21 1321 Gabapentin (Gabapentin) 400 Mg Capsule, 400 MG PO DAILY, (Reported) Entered as Reported by: LUCERO MAYNARD on 03/18/21 1321 Hydrocodone/Acetaminophen (Hydrocodon-Acetamin 7.5-325/15 ML) 15 Ml Solution, 2 TSP PO Q4H PRN for PAIN-MODERATE (5-7) Prescribed by: GOLDIE SHULTZ on 04/17/21 1020 Insulin Aspart (Novolog Flexpen) 300 Units/3 Ml Solution, 10 UNITS SQ BIDAC, (Reported) Entered as Reported by: LUCERO MAYNARD on 03/18/21 132 Insulin Detemir (Levemir Flextouch) 100 Unit/1 Ml Insuln.pen, 16 UNIT SQ HS, (Reported) Entered as Reported by: LUCERO MAYNARD on 03/18/21 132 Loratadine (Loratadine) 10 Mg Tablet, 10 MG PO BID, (Reported) Entered as Reported by: LUCERO MAYNARD on 03/18/21 132 Melatonin/Pyridoxine HCl (B6) (Melatonin 3 mg Tablet) 1 Each Tablet, 3 MG PO HS, (Reported) Entered as Reported by: LUCERO MAYNARD on 03/18/21 132 Multivits,Ca,Minerals/Iron/FA (Thera M Plus Tablet) 1 Each Tablet, 1 EACH PO DAILY, (Reported) Entered as Reported by: LUCERO MAYNARD on 03/18/21 132 Olanzapine (Olanzapine) 5 Mg Tablet, 5 MG PO BID, (Reported) Entered as Reported by: LUCERO MAYNARD on 03/18/21 132 [place]-3 Fatty Acids/Fish Oil (Fish Oil 1,000 mg Softgel) 1 Each Capsule, 1 EACH PO DAILY, (Reported) Entered as Reported by: LUCERO MAYNARD on 03/18/21 132 Pantoprazole Sodium (Pantoprazole Sodium) 40 Mg Tablet.dr, 40 MG PO DAILY, (Reported) Entered as Reported by: LUCERO MAYNARD on 03/18/21 132 [Xylocaine Viscous 2%] , 1 TSP PO UD PRN for PAIN-MILD (1-4) Prescribed by: GOLDIE SHULTZ on 04/17/21 1020 Review of Systems Review of Systems Constitutional: see HPI, diaphoresis EENTM: see HPI Respiratory: no symptoms reported Cardiovascular: no symptoms reported Genitourinary: no symptoms reported Musculoskeletal: no symptoms reported Skin: no symptoms reported Psychiatric/Neurological: No Symptoms Reported Hematologic/Lymphatic: No Symptoms Reported Immunological/Allergic: no symptoms reported Past Wzwrqnh-Myzios-Xemzql Hx Immunizations Up To Date First/Initial COVID19 Vaccinat: yes Second COVID19 Vaccination Adarsh: yes Third COVID19 Vaccination Date: yes Seasonal Allergies Seasonal Allergies: No Past Medical History Surgeries: Yes (LEFT ARM - FX REPAIR, esopageal ulcer repair, tongue bx) Orthopedic Respiratory: No Cardiac: No Neurological: No Reproductive Disorders: No Genitourinary: Yes UTI-Chronic Gastrointestinal: Yes Chronic Constipation, Ulcer Musculoskeletal: No Endocrine: Yes Diabetes, Non-Insulin dep HEENT: Yes (left tongue mass) Cancer: Yes (SCC tongue lesion) Psychosocial: Yes Anxiety, Schizophrenia Integumentary: No Blood Disorders: No Adverse Reaction/Blood Tranf: No Family Medical History Patient reports no known family medical history. No Pertinent Family Hx Physical Exam Vital Signs Vital Signs - First Documented 06/07/21 17:55 Temp 36.4 Pulse 80 Resp 18 B/P (MAP) 125/80 (95) Pulse Ox 96 O2 Delivery Room Air Capillary Refill : Height, Weight, BMI Height: 6'0.00" Weight: 205lbs. 0.0oz. [id number]; 24.42 BMI Method:Estimated General Appearance: No Apparent Distress, WD/WN Eyes: Bilateral Eye Normal Inspection, Bilateral Eye PERRL, Bilateral Eye EOMI HEENT: PERRL/EOMI, TMs Normal Neck: Full Range of Motion, Normal Inspection Respiratory: No Accessory Muscle Use, No Respiratory Distress Cardiovascular: Regular Rate, Rhythm, Normal Peripheral Pulses Gastrointestinal: Normal Bowel Sounds, Non Tender, Soft Extremity: Normal Capillary Refill, Normal Inspection Neurologic/Psychiatric: Alert, Oriented x3 Skin: Normal Color, Warm/Dry Procedures/Interventions Date of ETT Placement: Sep 17, 2016 Time of ETT Placement: 1530 Progress/Results/Core Measures Suspected Sepsis SIRS Temperature: Pulse: Respiratory Rate: Laboratory Tests 06/07/21 17:52: White Blood Count 10.0 Blood Pressure / Mean: Laboratory Tests 06/07/21 17:52: Creatinine 2.39H, Platelet Count 268, Total Bilirubin 0.3 Results/Orders Lab Results Laboratory Tests Test 06/07/21 17:52 06/07/21 19:11 Range/Units White Blood Count 10.0 4.3-11.0 10^3/uL Red Blood Count 4.01 L 4.30-5.52 10^6/uL Hemoglobin 12.0 L 13.3-17.7 g/dL Hematocrit 36 L 40-54 % Mean Corpuscular Volume 91 80-99 fL Mean Corpuscular Hemoglobin 30 25-34 pg Mean Corpuscular Hemoglobin Concent 33 32-36 g/dL Red Cell Distribution Width 15.9 H 10.0-14.5 % Platelet Count 268 130-400 10^3/uL Mean Platelet Volume 11.3 9.0-12.2 fL Immature Granulocyte % (Auto) 0 % Neutrophils (%) (Auto) 70 42-75 % Lymphocytes (%) (Auto) 20 12-44 % Monocytes (%) (Auto) 8 0-12 % Eosinophils (%) (Auto) 2 0-10 % Basophils (%) (Auto) 1 0-10 % Neutrophils # (Auto) 7.0 1.8-7.8 10^3/uL Lymphocytes # (Auto) 2.0 1.0-4.0 10^3/uL Monocytes # (Auto) 0.8 0.0-1.0 10^3/uL Eosinophils # (Auto) 0.2 0.0-0.3 10^3/uL Basophils # (Auto) 0.1 0.0-0.1 10^3/uL Immature Granulocyte # (Auto) 0.0 0.0-0.1 10^3/uL Sodium Level 136 135-145 MMOL/L Potassium Level 3.6 3.6-5.0 MMOL/L Chloride Level 104 98-107 MMOL/L Carbon Dioxide Level 19 L 21-32 MMOL/L Anion Gap 13 5-14 MMOL/L Blood Urea Nitrogen 43 H 7-18 MG/DL Creatinine 2.39 H 0.60-1.30 MG/DL Estimat Glomerular Filtration Rate 27 BUN/Creatinine Ratio 18 Glucose Level 192 H 70-105 MG/DL Calcium Level 9.3 8.5-10.1 MG/DL Corrected Calcium 9.5 8.5-10.1 MG/DL Total Bilirubin 0.3 0.1-1.0 MG/DL Aspartate Amino Transf (AST/SGOT) 24 5-34 U/L Alanine Aminotransferase (ALT/SGPT) 22 0-55 U/L Alkaline Phosphatase 62 40-136 U/L Total Protein 6.4 6.4-8.2 GM/DL Albumin 3.8 3.2-4.5 GM/DL Glucometer 101 70-110 MG/DL My Orders Orders - HANH FRANKLIN APRN Cbc With Automated Diff (06/07/21 17:50) Comprehensive Metabolic Panel (06/07/21 17:50) Ua Culture If Indicated (06/07/21 17:50) Ed Iv/Invasive Line Start (06/07/21 17:50) General/Regular (06/07/21 Dinner) Vital Signs/I&O 06/07/21 17:55 Temp 36.4 Pulse 80 Resp 18 B/P (MAP) 125/80 (95) Pulse Ox 96 O2 Delivery Room Air Capillary Refill : Departure Communication (Admissions) 1928-alert and oriented, ate a little food for us. Blood glucose at 101. moves all extremities. Family reports this is normal for him when he has hypoglycemia. Impression Primary Impression: Hypoglycemia associated with diabetes Disposition: 01 HOME, SELF-CARE Condition: Improved Departure-Patient Inst. Decision time for Depature: 19:06 Referrals: SHANIQUA LEDEZMA DO (PCP/Family) Primary Care Physician Patient Instructions: Low Blood Sugar in People Without Diabetes HANH FRANKLIN APRN Jun 07, 2021 17:59
[2021-06-07 18:17] LABS: ALBUMIN 3.8 GM/DL (3.2-4.5); BILIRUBIN,TOTAL 0.3 MG/DL (0.1-1.0); CALCIUM 9.3 MG/DL (8.5-10.1); CREATININE SERUM 2.39 MG/DL (0.60-1.30); POTASSIUM 3.6 MMOL/L (3.6-5.0); TOTAL PROTEIN 6.4 GM/DL (6.4-8.2)
== END 2021-06-07 19:38 | disposition home or self-care (01) ==
LOC: EDUNIT# 17:44 → ER 17:46
DX: E11.649 Type 2 diabetes mellitus with hypoglycemia without coma (principal); F20.9 Schizophrenia, unspecified; F41.9 Anxiety disorder, unspecified; Z79.899 Other long term (current) drug therapy
CPT/HCPCS: 36415; 80053; 82947; 85025

== ENCOUNTER 2021-07-04 15:06 | Emergency (ER) | payer MEDICARE, MEDICAID ==
[~2021-07-04] VITALS: Ht 182 cm; Wt 80.0 kg
[~2021-07-04 15:06] MED LIST changes: +FLUV100T21 PO; -FLUV100T3 PO
[2021-07-04] MEDS ORDERED: DEXTROSE 50% 50 ML (IMS) SYR ONE (15:11)
--- NOTE | 2021-07-04 15:26 | ED General ---
General Chief Complaint: Unresponsive Stated Complaint: UNRESPONSIVE Nursing Triage Note: ARRIVED VIA POV ET ASSISTED OUT OF CAR ONTO A COT. PT UNRESPONSIVE. COUSIN STATES HE IS A DIABETIC AND FEELS LIKE IT IS HIS BLOOD SUGAR. PT IS DIAPHORETIC. Source of Information: RN/MD Exam Limitations: Physical Impairments History of Present Illness Date Seen by Provider: Jul 04, 2021 Time Seen by Provider: 15:10 Initial Comments Patient is a 75-year-old male who presents to the emergency department today with a chief complaint of altered mental status. Reportedly the patient was with a family member at Dr. Portillo's office for some routine follow-up when he started not acting right. ED nurses had to help the patient out of the car. He was talking a little bit when they went to retrieve him from the car but on my evaluation is almost completely obtunded. Eyes are open and not really answering questions, profusely diaphoretic unable to answer questions. Reportedly from ED RN patient's blood sugar was 36. Known diabetic. Patient rapidly assessed, IV placed in the left hand and D50 administered. After about 5 minutes the patient is awake, alert, oriented and talking. He has no complaints of chest pain, shortness of breath, abdominal pain. Knows where he is and who he is. Is able to answer questions about his past medical history. States that he did in fact eat lunch today. Remembers that he was at Dr. Portillo's office. Plan is to feed him and do serial Accu-Cheks every 30 minutes x 4. Routine labs, EKG. Timing/Duration: 1/2 Hour Severity: Severe Allergies and Home Medications Allergies Coded Allergies: No Known Drug Allergies (Verified , 10/23/08) Patient Home Medication List Home Medication List Reviewed: Yes Albuterol Sulfate (Albuterol Sulfate) 2.5 Mg/3 Ml Vial.neb, 2.5 MG INH Q4H PRN for WHEEZING, (Reported) Entered as Reported by: LUCERO MAYNARD on 03/18/21 1321 Atorvastatin Calcium (Atorvastatin Calcium) 10 Mg Tablet, 10 MG PO MoWeFr, (Reported) Entered as Reported by: LUCERO MAYNARD on 03/18/21 1321 Cholecalciferol (Vitamin D3) (Vitamin D3) 50 Mcg Tablet, 50 MCG PO DAILY, (Repo rted) Entered as Reported by: LUCERO MAYNARD on 03/18/21 1321 Docusate Sodium (Docusate Sodium) 100 Mg Tablet, 100 MG PO DAILY, (Reported) Entered as Reported by: LUCERO MAYNARD on 03/18/21 132 Fluvoxamine Maleate (Fluvoxamine Maleate) 100 Mg Tablet, 100 MG PO BID, (Reported) Entered as Reported by: LUCERO MAYNARD on 03/18/21 132 Gabapentin (Gabapentin) 400 Mg Capsule, 400 MG PO DAILY, (Reported) Entered as Reported by: LUCERO MAYNARD on 03/18/21 1321 Hydrocodone/Acetaminophen (Hydrocodon-Acetamin 7.5-325/15 ML) 15 Ml Solution, 2 TSP PO Q4H PRN for PAIN-MODERATE (5-7) Prescribed by: GOLDIE SHULTZ on 04/17/21 1020 Insulin Aspart (Novolog Flexpen) 300 Units/3 Ml Solution, 10 UNITS SQ BIDAC, ( Reported) Entered as Reported by: LUCERO MAYNARD on 03/18/21 1321 Insulin Detemir (Levemir Flextouch) 100 Unit/1 Ml Insuln.pen, 16 UNIT SQ HS, (Reported) Entered as Reported by: LUCERO MAYNARD on 03/18/21 132 Loratadine (Loratadine) 10 Mg Tablet, 10 MG PO BID, (Reported) Entered as Reported by: LUCERO MAYNARD on 03/18/21 132 Melatonin/Pyridoxine HCl (B6) (Melatonin 3 mg Tablet) 1 Each Tablet, 3 MG PO HS, (Reported) Entered as Reported by: LUCERO MAYNARD on 03/18/21 1321 Multivits,Ca,Minerals/Iron/FA (Thera M Plus Tablet) 1 Each Tablet, 1 EACH PO DAILY, (Reported) Entered as Reported by: LUCERO MAYNARD on 03/18/21 132 Olanzapine (Olanzapine) 5 Mg Tablet, 5 MG PO BID, (Reported) Entered as Reported by: LUCERO MAYNARD on 03/18/21 1321 [place]-3 Fatty Acids/Fish Oil (Fish Oil 1,000 mg Softgel) 1 Each Capsule, 1 EACH PO DAILY, (Reported) Entered as Reported by: LUCERO MAYNARD on 03/18/21 1321 Pantoprazole Sodium (Pantoprazole Sodium) 40 Mg Tablet.dr, 40 MG PO DAILY, (Reported) Entered as Reported by: LUCERO MAYNARD on 03/18/21 1321 [Xylocaine Viscous 2%] , 1 TSP PO UD PRN for PAIN-MILD (1-4) Prescribed by: GOLDIE SHULTZ on 04/17/21 1020 Review of Systems Review of Systems Constitutional: see HPI EENTM: other ("mouth sore") Respiratory: no symptoms reported Cardiovascular: no symptoms reported Gastrointestinal: no symptoms reported Genitourinary: no symptoms reported Musculoskeletal: no symptoms reported Skin: no symptoms reported All Other Systems Reviewed Negative Unless Noted: Yes Past Hridkjt-Ohfudx-Nzbgtd Hx Patient Social History Tobacco Use?: No Substance use?: No Alcohol Use?: No Immunizations Up To Date First/Initial COVID19 Vaccinat: yes Second COVID19 Vaccination Adarsh: yes Third COVID19 Vaccination Date: yes COVID19 Vaccine [employer]: [employer] Seasonal Allergies Seasonal Allergies: No Past Medical History Surgeries: Yes (LEFT ARM - FX REPAIR, esopageal ulcer repair, tongue bx) Orthopedic Respiratory: No Cardiac: No Neurological: No Reproductive Disorders: No Genitourinary: Yes UTI-Chronic Gastrointestinal: Yes Chronic Constipation, Ulcer Musculoskeletal: No Endocrine: Yes Diabetes, Non-Insulin dep HEENT: Yes (left tongue mass) Cancer: Yes (SCC tongue lesion) Psychosocial: Yes Anxiety, Schizophrenia Integumentary: No Blood Disorders: No Adverse Reaction/Blood Tranf: No Family Medical History Patient reports no known family medical history. No Pertinent Family Hx Physical Exam Vital Signs Vital Signs - First Documented 07/04/21 15:06 Temp 35.3 Pulse 60 Resp 16 B/P (MAP) 182/92 (122) Pulse Ox 93 O2 Delivery Room Air Capillary Refill : Less Than 3 Seconds Height, Weight, BMI Height: 6'0.00" Weight: 205lbs. 0.0oz. 92.893865zd; 24.00 BMI Method:Estimated General Appearance: WD/WN, Other (poor responsiveness; eyes open, barely verbal) Eyes: Bilateral Eye Normal Inspection, Bilateral Eye PERRL HEENT: PERRL/EOMI, Other (appears adequately hydrated) Neck: Normal Inspection Respiratory: Lungs Clear, Normal Breath Sounds, No Accessory Muscle Use, No Respiratory Distress Cardiovascular: Regular Rate, Rhythm, Normal Peripheral Pulses Gastrointestinal: Non Tender, Soft; No Distended Extremity: Normal Inspection Neurologic/Psychiatric: Other (poorly responsive initially; responds to painful stimuli) Skin: Diaphoresis, Pallor Procedures/Interventions Date of ETT Placement: Sep 17, 2016 Time of ETT Placement: 1530 Progress/Results/Core Measures Suspected Sepsis SIRS Temperature: Pulse: 60 Respiratory Rate: 16 Laboratory Tests 07/04/21 15:10: White Blood Count 12.9H Blood Pressure 182 /92 Mean: 122 Laboratory Tests 07/04/21 15:10: Creatinine 2.50H, Platelet Count 357 Results/Orders Lab Results Laboratory Tests Test 07/04/21 15:10 07/04/21 15:46 07/04/21 16:20 07/04/21 16:53 Range/Units White Blood Count 12.9 H 4.3-11.0 10^3/uL Red Blood Count 4.32 4.30-5.52 10^6/uL Hemoglobin 13.1 L 13.3-17.7 g/dL Hematocrit 39 L 40-54 % Mean Corpuscular Volume 91 80-99 fL Mean Corpuscular Hemoglobin 30 25-34 pg Mean Corpuscular Hemoglobin Concent 33 32-36 g/dL Red Cell Distribution Width 14.9 H 10.0-14.5 % Platelet Count 357 130-400 10^3/uL Mean Platelet Volume 11.4 9.0-12.2 fL Immature Granulocyte % (Auto) 0 % Neutrophils (%) (Auto) 64 42-75 % Lymphocytes (%) (Auto) 23 12-44 % Monocytes (%) (Auto) 9 0-12 % Eosinophils (%) (Auto) 3 0-10 % Basophils (%) (Auto) 0 0-10 % Neutrophils # (Auto) 8.3 H 1.8-7.8 X 10^3 Lymphocytes # (Auto) 3.0 1.0-4.0 X 10^3 Monocytes # (Auto) 1.1 H 0.0-1.0 X 10^3 Eosinophils # (Auto) 0.4 H 0.0-0.3 10^3/uL Basophils # (Auto) 0.1 0.0-0.1 10^3/uL Immature Granulocyte # (Auto) 0.0 0.0-0.1 10^3/uL Sodium Level 141 135-145 MMOL/L Potassium Level 4.7 3.6-5.0 MMOL/L Chloride Level 105 98-107 MMOL/L Carbon Dioxide Level 24 21-32 MMOL/L Anion Gap 12 5-14 MMOL/L Blood Urea Nitrogen 39 H 7-18 MG/DL Creatinine 2.50 H 0.60-1.30 MG/DL Estimat Glomerular Filtration Rate 25 BUN/Creatinine Ratio 16 Glucose Level 37 *L 70-105 MG/DL Calcium Level 10.5 H 8.5-10.1 MG/DL Glucometer 128 H 117 H 119 H 70-110 MG/DL My Orders Orders - GREG MILES MD D50w (Emergency) Syringe (Dextrose 50% 5 (07/04/21 15:11) Cbc With Automated Diff (07/04/21 15:20) Basic Metabolic Panel (07/04/21 15:20) D50w (Emergency) Syringe (Dextrose 50% 5 (07/04/21 15:30) Ekg Tracing (07/04/21 15:20) Accucheck Prn (07/04/21 15:20) Medications Given in ED Vital Signs/I&O 07/04/21 07/04/21 15:06 17:05 Temp 35.3 Pulse 60 54 Resp 16 16 B/P (MAP) 182/92 (122) 134/112 Pulse Ox 93 92 O2 Delivery Room Air Room Air Capillary Refill : Less Than 3 Seconds Blood Pressure Mean: 122 Point of Care Testing Finger Stick Blood Glucose: 36 Progress Note : Time: 16:56 Progress Note amp of D50 given on arrival for reported hypoglycemia at 36. Patient took about 5 minutes to start to respond. When he did, he was oriented without complaints. POor memory of events immediately preceeding arrival to the ER. Family member/caregiver present to provide the rest of the history - they were riding in the car, on the way to [employer] for a hamburger when symptoms started. Family member immediately recognized symptoms of low blood sugar and came to the ER. They had seen the patient's doctor just yesterday for 1 month ago ED visit for similar symptoms. NO medication changes were made at that visit. Patient has been well since. Prior to discharge Patient's blood sugar has been persistently above 100. He is mentating normally has no complaints. He has eaten a sandwich and some chips and had a couple of apple slices. He had an amp of D50. Labs have been reviewed and are within normal limits/at his baseline. He has no clinical or objective findings at this time to warrant further studies from the emergency department or admission. I have discussed the work-up and findings and plan of care with his family member/caregiver who is at the bedside. She is co mfortable, all questions are sought and answered. Patient is stable for discharge. ECG Initial ECG Impression Date: Jul 04, 2021 Initial ECG Impression Time: 15:26 Initial ECG Rate: 58 Initial ECG Rhythm: Normal Sinus Initial ECG Intervals CT 211 QRS 173 QTc 512 Comment PVCs noted, no ST segment elevation or depression, left bundle branch block Departure Impression Primary Impression: Hypoglycemia associated with diabetes Disposition: 01 HOME, SELF-CARE Condition: Improved Departure-Patient Inst. Decision time for Depature: 16:54 Referrals: SHANIQUA LEDEZMA DO (PCP/Family) Primary Care Physician Patient Instructions: Low Blood Sugar in People With Diabetes Add. Discharge Instructions: Eat small frequent snacks throughout the day to keep your blood sugar up. Every time you take your insulin you need to have a small snack. When you feel the symptoms of low blood sugar starting, you should have a small snack. Please follow-up with your primary care doctor. Return to the emergency department for any new, concerning or emergent complaints Copy Copies To 1: SHANIQUA LEDEZMA KATHRYN M MD Jul 04, 2021 15:25
[2021-07-04] MEDS ORDERED: DEXTROSE 50% 50 ML (IMS) SYR IV ONE (15:30)
[2021-07-04 15:32] LABS: BASOPHILS # (AUTO) 0.1 10^3/uL (0.0-0.1); BASOPHILS % (AUTO) 0 % (0-10); EOSINOPHILS # (AUTO) 0.4 10^3/uL (0.0-0.3); EOSINOPHILS % (AUTO) 3 % (0-10); HEMATOCRIT 39 % (40-54); HEMOGLOBIN 13.1 g/dL (13.3-17.7); LYMPHOCYTES % (AUTO) 23 % (12-44); MEAN CORPUSCULAR HEMOGLOBIN 30 pg (25-34); MEAN CORPUSCULAR HGB CONC 33 g/dL (32-36); MEAN CORPUSCULAR VOLUME 91 fL (80-99); MEAN PLATELET VOLUME 11.4 fL (9.0-12.2); MONOCYTES # (AUTO) 1.1 X 10^3 (0.0-1.0); MONOCYTES % (AUTO) 9 % (0-12); NEUTROPHILS # (AUTO) 8.3 X 10^3 (1.8-7.8); NEUTROPHILS % (AUTO) 64 % (42-75); PLATELET COUNT 357 10^3/uL (130-400); WHITE BLOOD COUNT 12.9 10^3/uL (4.3-11.0)
[2021-07-04 15:34] LABS: POTASSIUM 4.7 MMOL/L (3.6-5.0)
[2021-07-04 15:35] LABS: CALCIUM 10.5 MG/DL (8.5-10.1)
[2021-07-04 15:40] LABS: CREATININE SERUM 2.5 MG/DL (0.60-1.30)
[2021-07-04 17:05] VITALS: BP 134/112
== END 2021-07-04 17:05 | disposition home or self-care (01) ==
LOC: EDUNIT# 15:06 → ER 15:08
DX: E11.649 Type 2 diabetes mellitus with hypoglycemia without coma (principal); F20.9 Schizophrenia, unspecified; Z79.899 Other long term (current) drug therapy
CPT/HCPCS: 36415; 80048; 82947; 85025; 93005

== ENCOUNTER 2022-02-07 17:00 | Inpatient (IN) | payer MEDICARE, MEDICAID ==
[2022-02-07] VITALS (8 sets, daily range): BP systolic 86–125; BP diastolic 46–76
[~2022-02-07] VITALS: Ht 183 cm; Wt 91.5 kg
[2022-02-07 18:08] LABS: BASOPHILS % (AUTO) 0 % (0-10); EOSINOPHILS % (AUTO) 0 % (0-10); HEMATOCRIT 38 % (40-54); HEMOGLOBIN 12.3 g/dL (13.3-17.7); LYMPHOCYTES # (AUTO) 0.5 10^3/uL (1.0-4.0); LYMPHOCYTES % (AUTO) 2 % (12-44); MEAN CORPUSCULAR HEMOGLOBIN 30 pg (25-34); MEAN CORPUSCULAR HGB CONC 33 g/dL (32-36); MEAN CORPUSCULAR VOLUME 93 fL (80-99); MEAN PLATELET VOLUME 12.1 fL (9.0-12.2); MONOCYTES % (AUTO) 4 % (0-12); NEUTROPHILS # (AUTO) 22.2 10^3/uL (1.8-7.8); NEUTROPHILS % (AUTO) 93 % (42-75); PLATELET COUNT 216 10^3/uL (130-400)
[2022-02-07 18:10] LABS: ALBUMIN 4.1 GM/DL (3.2-4.5); POTASSIUM 5.5 MMOL/L (3.6-5.0)
--- NOTE | 2022-02-07 18:10 | ED General ---
General Chief Complaint: General Problems/Pain Stated Complaint: WEAKNESS,FATIUGE,COUGH Nursing Triage Note: LEONORA FROM [facility] WITH PT AT BEDSIDE, STATES PT HAS BEEN WEAK TODAY, COVID TEST NEGATIVE THIS MORNING, AROUND 1600 PT WAS TOO WEAK TO GET UP AND AROUND, NORMALLY WALKS FINE, 37.2 AT TRIAGE, RUNNY NOSE AND OCCATIONAL COUGH. PT ALERT X'S 4 Source of Information: Patient, Caregiver (at skilled nursing) Exam Limitations: No Limitations History of Present Illness Date Seen by Provider: Feb 07, 2022 Time Seen by Provider: 17:55 Initial Comments Patient is a 76yo male who resides at [facility] - sent for generalized weakness - legs wouldn't hold him up today. He states he's been sick for about 3 weeks. He has a cough. Intermittently productive. Reported 133 SBP prior to arrival while at longterm. On arrival hypoxic at 88% on room air. Doesnt wear oxygen at the skilled nursing. Decreased appetite. legs "hurt" because they are weak he says. He has a runny nose. Covid vaccinated - adult care manager reports no recent cases at the skilled nursing. Caregiver from skilled nursing says he's normally ambulatory and pretty spunky. He's a diabetic and has mental illness - OCD and Schizophrenia. He has a DNR order with him. He had a negative covid test at the skilled nursing this morning. All other ROS reviewed and negative except as stated. Timing/Duration: Other (2-3 weeks per patient) Severity: Moderate Associated Systoms: Cough, Malaise, Weakness Allergies and Home Medications Allergies Coded Allergies: No Known Drug Allergies (Verified , 10/23/08) Patient Home Medication List Home Medication List Reviewed: Yes Albuterol Sulfate (Albuterol Sulfate) 2.5 Mg/3 Ml Vial.neb, 2.5 MG INH Q4H PRN for WHEEZING, (Reported) Entered as Reported by: LUCERO MAYNARD on 03/18/21 132 Atorvastatin Calcium (Atorvastatin Calcium) 10 Mg Tablet, 10 MG PO MoWeFr, (Reported) Entered as Reported by: LUCERO MAYNARD on 03/18/21 1321 Cholecalciferol (Vitamin D3) (Vitamin D3) 50 Mcg Tablet, 50 MCG PO DAILY, (Reported) Entered as Reported by: LUCERO MAYNARD on 03/18/21 132 Docusate Sodium (Docusate Sodium) 100 Mg Tablet, 100 MG PO DAILY, (Reported) Entered as Reported by: LUCERO MAYNARD on 03/18/21 132 Fluvoxamine Maleate (Fluvoxamine Maleate) 100 Mg Tablet, 100 MG PO BID, (Reported) Entered as Reported by: LUCERO MAYNARD on 03/18/21 132 Gabapentin (Gabapentin) 400 Mg Capsule, 400 MG PO DAILY, (Reported) Entered as Reported by: LUCERO MAYNARD on 03/18/21 132 Hydrocodone/Acetaminophen (Hydrocodon-Acetamin 7.5-325/15 ML) 15 Ml Solution, 2 TSP PO Q4H PRN for PAIN-MODERATE (5-7) Prescribed by: GOLDIE SHULTZ on 04/17/21 1020 Insulin Aspart (Novolog Flexpen) 300 Units/3 Ml Solution, 10 UNITS SQ BIDAC, (Reported) Entered as Reported by: LUCERO MAYNARD on 03/18/21 132 Insulin Detemir (Levemir Flextouch) 100 Unit/1 Ml Insuln.pen, 16 UNIT SQ HS, (Reported) Entered as Reported by: LUCERO MAYNARD on 03/18/21 132 Loratadine (Loratadine) 10 Mg Tablet, 10 MG PO BID, (Reported) Entered as Reported by: LUCERO MAYNARD on 03/18/21 132 Melatonin/Pyridoxine HCl (B6) (Melatonin 3 mg Tablet) 1 Each Tablet, 3 MG PO HS, (Reported) Entered as Reported by: LUCERO MAYNARD on 03/18/21 132 Multivits,Ca,Minerals/Iron/FA (Thera M Plus Tablet) 1 Each Tablet, 1 EACH PO DAILY, (Reported) Entered as Reported by: LUCERO MAYNARD on 03/18/21 132 Olanzapine (Olanzapine) 5 Mg Tablet, 5 MG PO BID, (Reported) Entered as Reported by: LUCERO MAYNARD on 03/18/21 132 [place]-3 Fatty Acids/Fish Oil (Fish Oil 1,000 mg Softgel) 1 Each Capsule, 1 EACH PO DAILY, (Reported) Entered as Reported by: LUCERO MAYNARD on 03/18/21 1321 Pantoprazole Sodium (Pantoprazole Sodium) 40 Mg Tablet.dr, 40 MG PO DAILY, (Reported) Entered as Reported by: LUCERO MAYNARD on 03/18/21 1321 [Xylocaine Viscous 2%] , 1 TSP PO UD PRN for PAIN-MILD (1-4) Prescribed by: GOLDIE SHULTZ on 04/17/21 1020 Review of Systems Review of Systems Constitutional: see HPI, malaise, weakness EENTM: nose congestion (runny nose) Respiratory: cough, phlegm Cardiovascular: no symptoms reported Gastrointestinal: loss of appetite Genitourinary: no symptoms reported Musculoskeletal: no symptoms reported Skin: no symptoms reported All Other Systems Reviewed Negative Unless Noted: Yes Past Vyxxiao-Pgjeze-Vxmyka Hx Patient Social History Tobacco Use?: No Substance use?: No Alcohol Use?: No Immunizations Up To Date First/Initial COVID19 Vaccinat: 08/22 Second COVID19 Vaccination Adarsh: 08/22 Third COVID19 Vaccination Date: 06/22 Seasonal Allergies Seasonal Allergies: No Past Medical History Surgery/Hospitalization HX: TYPE II DIABETES, SCHIZOPHRENIA, ANXIETY, COPD, MALIGNANT NEOPLASM OF THE TONGUE, CAD, GERD, HYPERTENSION, CONSTIPATION Surgeries: Yes (LEFT ARM - FX REPAIR, esopageal ulcer repair, tongue bx) Orthopedic Respiratory: No Cardiac: No Neurological: No Reproductive Disorders: No Genitourinary: Yes UTI-Chronic Gastrointestinal: Yes Chronic Constipation, Ulcer Musculoskeletal: No Endocrine: Yes Diabetes, Non-Insulin dep HEENT: Yes (left tongue mass) Cancer: Yes (SCC tongue lesion) Psychosocial: Yes Anxiety, Schizophrenia Integumentary: No Blood Disorders: No Adverse Reaction/Blood Tranf: No Family Medical History Patient reports no known family medical history. No Pertinent Family Hx Physical Exam-Suspected Sepsis Physical Exam Vital Signs Vital Signs - First Documented 02/07/22 02/07/22 17:10 18:35 Temp 37.2 Pulse 97 Resp 22 B/P (MAP) 86/46 Pulse Ox 94 O2 Delivery Nasal Cannula O2 Flow Rate 2.00 Capillary Refill : Less Than 3 Seconds Height, Weight, BMI Height: 6'0.00" Weight: 205lbs. 0.0oz. [id number]; 26.00 BMI Method:Estimated General Appearance: No Apparent Distress, WD/WN Eyes: Bilateral Eye Normal Inspection, Bilateral Eye PERRL, Bilateral Eye EOMI, Bilateral Eye Conjunctivae Pale (slightly) HEENT: PERRL/EOMI, Other (dry oral mucosa - post surgincal changes to the left side of the tongue (old cancer)) Neck: Normal Inspection Respiratory: No Accessory Muscle Use, No Respiratory Distress, Crackles (right base), Decreased Breath Sounds (left base) Cardiovascular: Regular Rate, Rhythm (90's (at triage 120's) BP now in the 90' s systolic), Normal Peripheral Pulses Gastrointestinal: Normal Bowel Sounds, Non Tender, Soft Extremity: Normal Capillary Refill (1-2 sec), Normal Inspection, Normal Range of Motion, Non Tender, No Pedal Edema Neurologic/Psychiatric: Alert, Oriented x3, No Motor/Sensory Deficits, Normal Mood/Affect, 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 Norm as Tested Skin: warm/dry, pallor Focused Exam Lactate Level 02/07/22 18:10: Lactic Acid Level 2.32*H Time of Focused Exam: 18:05 Respiratory: Crackles, Decreased Breath Sounds Cardiovascular: Regular Rate, Rhythm, Normal Peripheral Pulses Capillary Refill: Less Than 3 Seconds Peripheral Pulses: 2+ Radial Pulses (R), 2+ Radial Pulses (L) Skin: warm/dry, pallor Lactic Acid Level Laboratory Tests Test 02/07/22 18:10 Lactic Acid Level 2.32 MMOL/L (0.50-2.00) *H Within 3hrs of presentation: Admin fluids, Admin ABX, Blood cultures prior to ABX's, Focus exam, Lactate level Procedures/Interventions Lumen: triple Central Line Procedure: betadine prep, sterile drapes applied, sterile dressing applied Position: internal jugular (R) Anesthesia: Lidocaine Volume Anesthetic (ccs): 4 Complications: initial line misplaced; re-wired and re-oriented Post Position: sutured, good blood return, position confirmed w/ CXR Chest xray after re-placement of line, shows line to be a little high but in SVC; no ptx identified (interpreted by me) Date of ETT Placement: Sep 17, 2016 Time of ETT Placement: 1530 Progress/Results/Core Measures Suspected Sepsis SIRS Temperature: Pulse: 97 Respiratory Rate: 22 Laboratory Tests 02/07/22 17:22: White Blood Count 24.0H Blood Pressure / Mean: 02/07/22 18:10: Lactic Acid Level 2.32*H Laboratory Tests 02/07/22 17:22: Creatinine 2.65H, INR Comment 1.1, Platelet Count 216, Total Bilirubin 0.6 Results/Orders Lab Results Laboratory Tests Test 02/07/22 17:22 02/07/22 18:10 Range/Units White Blood Count 24.0 H 4.3-11.0 10^3/uL Red Blood Count 4.06 L 4.30-5.52 10^6/uL Hemoglobin 12.3 L 13.3-17.7 g/dL Hematocrit 38 L 40-54 % Mean Corpuscular Volume 93 80-99 fL Mean Corpuscular Hemoglobin 30 25-34 pg Mean Corpuscular Hemoglobin Concent 33 32-36 g/dL Red Cell Distribution Width 14.6 H 10.0-14.5 % Platelet Count 216 130-400 10^3/uL Mean Platelet Volume 12.1 9.0-12.2 fL Immature Granulocyte % (Auto) 1 % Neutrophils (%) (Auto) 93 H 42-75 % Lymphocytes (%) (Auto) 2 L 12-44 % Monocytes (%) (Auto) 4 0-12 % Eosinophils (%) (Auto) 0 0-10 % Basophils (%) (Auto) 0 0-10 % Neutrophils # (Auto) 22.2 H 1.8-7.8 10^3/uL Lymphocytes # (Auto) 0.5 L 1.0-4.0 10^3/uL Monocytes # (Auto) 1.0 0.0-1.0 10^3/uL Eosinophils # (Auto) 0.0 0.0-0.3 10^3/uL Basophils # (Auto) 0.0 0.0-0.1 10^3/uL Immature Granulocyte # (Auto) 0.2 H 0.0-0.1 10^3/uL Neutrophils % (Manual) 86 % Lymphocytes % (Manual) 4 % Monocytes % (Manual) 5 % Band Neutrophils 5 % Blood Morphology Comment NORMAL Prothrombin Time 14.1 12.2-14.7 SEC INR Comment 1.1 0.8-1.4 Activated Partial Thromboplast Time 28 24-35 SEC Sodium Level 134 L 135-145 MMOL/L Potassium Level 5.5 H 3.6-5.0 MMOL/L Chloride Level 100 98-107 MMOL/L Carbon Dioxide Level 19 L 21-32 MMOL/L Anion Gap 15 H 5-14 MMOL/L Blood Urea Nitrogen 46 H 7-18 MG/DL Creatinine 2.65 H 0.60-1.30 MG/DL Estimat Glomerular Filtration Rate 24 BUN/Creatinine Ratio 17 Glucose Level 312 H 70-105 MG/DL Calcium Level 9.7 8.5-10.1 MG/DL Corrected Calcium 9.6 8.5-10.1 MG/DL Total Bilirubin 0.6 0.1-1.0 MG/DL Aspartate Amino Transf (AST/SGOT) 29 5-34 U/L Alanine Aminotransferase (ALT/SGPT) 31 0-55 U/L Alkaline Phosphatase 85 40-136 U/L C-Reactive Protein High Sensitivity 13.57 H 0.00-0.50 MG/DL Total Protein 7.2 6.4-8.2 GM/DL Albumin 4.1 3.2-4.5 GM/DL Procalcitonin 6.47 H <0.10 NG/ML Lactic Acid Level 2.32 *H 0.50-2.00 MMOL/L Influenza Type A (RT-PCR) Not Detected Not Detecte Influenza Type B (RT-PCR) Not Detected Not Detecte SARS-CoV-2 RNA (RT-PCR) Not Detected Not Detecte My Orders Orders - GREG MILES MD Cbc With Automated Diff (02/07/22 18:01) Comprehensive Metabolic Panel (02/07/22 18:01) Blood Culture (02/07/22 18:01) Sputum Culture (02/07/22 18:01) Urinalysis (02/07/22 18:01) Urine Culture (02/07/22 18:01) Protime With Inr (02/07/22 18:01) Partial Thromboplastin Time (02/07/22 18:01) Chest 1 View, Ap/Pa Only (02/07/22 18:01) Ed Iv/Invasive Line Start (02/07/22 18:01) Ed Iv/Invasive Line Start (02/07/22 18:01) Vital Signs Adult Sepsis Patie Q15M (02/07/22 18:01) O2 (02/07/22 18:01) Remove Rings In Anticipation O (02/07/22 18:01) Lactic Acid Analyzer (02/07/22 18:01) Covid 19 Inhouse Test (02/07/22 18:01) Influenza A And B By Pcr (02/07/22 18:01) Isolation Central Supply Req (02/07/22 18:01) Ns Iv 1000 Ml (Sodium Chloride 0.9%) (02/07/22 18:15) Cefepime Injection (Maxipime Injection) (02/07/22 18:15) Manual Differential (02/07/22 17:22) Procalcitonin (Pct) (02/07/22 18:11) Hs C Reactive Protein (02/07/22 18:11) Ns Iv 1000 Ml (Sodium Chloride 0.9%) (02/07/22 18:45) Chest 1 View, Ap/Pa Only (02/07/22 19:29) Medications Given in ED Current Medications Medications Dose Ordered Sig/Aron Route Start Time Stop Time Status Last Admin Dose Admin Cefepime HCl 1000 mg/Sodium Chloride 50 ml @ 100 mls/hr ONCE ONCE IV 02/07/22 18:15 02/07/22 18:44 DC 02/07/22 18:26 100 MLS/HR Vital Signs/I&O 02/07/22 02/07/22 02/07/22 17:10 18:20 18:35 Temp 37.2 37.0 Pulse 97 81 Resp 22 22 B/P (MAP) 86/46 Pulse Ox 94 93 94 O2 Delivery Nasal Cannula Nasal Cannula Nasal Cannula O2 Flow Rate 2.00 4.00 4.00 4.00 Capillary Refill : Less Than 3 Seconds Progress Note : Time: 18:12 Progress Note Patient will need admitted for sepsis - likely due to pneumonia ECG Initial ECG Impression Date: Feb 07, 2022 Initial ECG Impression Time: 18:30 Initial ECG Rate: 94 Initial ECG Rhythm: Normal Sinus Initial ECG Intervals [place] 254 QRS 161 QTc 422 Comment 1 degree AVB; RBBB; Q waves V1 and V2; LVH Diagnostic Imaging Diagonstic Imaging: Xray Plain Films/CT/US/NM/MRI: chest Comments Chest xray (interpreted by me) shows central line tip a little high in the SVC - no ptx Reviewed: Reviewed by Me Critical Care Note Critical Care Start Time: 17:55 Stop Time: 19:30 Total Time (minutes) 45 minutes critical care time in the evaluation and management of this patient presenting with sepsis. treatment of hypoxia with supplemental oxygen; IVF for hypotension. time also includes review and interpretation of labs/imaging, review of medical record; initiation of treatment for pneumonia, discussion with admitting provider Departure Communication (Admissions) Time/Spoke to Admitting Phy: 19:[address] Snyder - will run NS at 150cc/hr Time/Spoke to Consulting Phy: 19:45 discussed with eICU Impression Primary Impression: Sepsis Qualified Codes: A41.9 - Sepsis, unspecified organism; R65.21 - Severe sepsis with septic shock; J96.01 - Acute respiratory failure with hypoxia Additional Impression: Pneumonia Qualified Codes: J18.9 - Pneumonia, unspecified organism Disposition: ADMITTED INPATIENT Condition: Critical Admissions Decision to Admit Reason: Admit from ER (General) Decision to Admit/Date: Feb 07, 2022 Time/Decision to Admit Time: 18:12 Departure-Patient Inst. Referrals: SHANIQUA LEDEZMA DO (PCP/Family) Primary Care Physician GREG MILES MD Feb 07, 2022 18:10
[2022-02-07 18:11] LABS: CALCIUM 9.7 MG/DL (8.5-10.1)
[2022-02-07 18:13] LABS: INR 1.1 (0.8-1.4); PROTHROMBIN TIME PATIENT 14.1 SEC (12.2-14.7); TOTAL PROTEIN 7.2 GM/DL (6.4-8.2)
[2022-02-07 18:14] LABS: BILIRUBIN,TOTAL 0.6 MG/DL (0.1-1.0)
[2022-02-07] MEDS ORDERED: NS IV 1000 ML 1,000 ML IV SCH ×2 (18:15→18:45)
[2022-02-07] MEDS ORDERED: CEFEPIME INJECTION 1,000 MG in NS (IVPB) 50 ML IV ONE (18:15)
[2022-02-07 18:16] LABS: CREATININE SERUM 2.65 MG/DL (0.60-1.30)
[2022-02-07 18:31] LABS: BAND NEUTROPHILS 5 %; LYMPHOCYTES % (MANUAL) 4 %; MONOCYTES % (MANUAL) 5 %; NEUTROPHILS % (MANUAL) 86 %; RBC MORPH NORMAL
--- NOTE | 2022-02-07 20:15 | Diagnostic Imaging Report ---
INDICATION: Fever, shortness of breath and cough. COMPARISON: Prior examination from 09/26/2018. FINDINGS: There is cardiomegaly. There is infiltrate in right midlung. There is some elevation of the right hemidiaphragm. There is mild venous congestion. There is no pleural effusion or pneumothorax. There is a right internal jugular central venous catheter which appears to be directed laterally at the right subclavian vein. IMPRESSION: 1. Focal consolidation in the right mid lung suspect for pneumonia. 2. Cardiomegaly and some central pulmonary venous congestion. 3. Abnormal positioning of the right internal jugular central venous catheter, as described. Dictated by: Dictated on workstation # [id number]
--- NOTE | 2022-02-07 20:16 | Diagnostic Imaging Report ---
INDICATION: Line placement. COMPARISON: Prior examination from earlier the same evening. FINDINGS: The right internal jugular central venous catheter now has its tip in the superior vena cava. There is persistent pneumonia in the right midlung. There is cardiomegaly and venous congestion. IMPRESSION: 1. The right internal jugular central venous catheter now has its tip in the superior vena cava. 2. Persistent infiltrate in the right mid lung suspect for pneumonia. 3. Cardiomegaly and some central pulmonary venous congestion. Dictated by: Dictated on workstation # [id number]
[2022-02-07] MEDS ORDERED: NS IV 1000 ML 1,000 ML ONE (20:19)
[2022-02-07] MEDS ORDERED: ACETAMINOPHEN 500 MG TAB (TYLENOL) PO PRN (20:30)
[2022-02-07] MEDS ORDERED: RT-ALBUTEROL/IPRATROPIUM 3 ML (DUONEB) VIAL INH PRN (20:45)
[2022-02-07] MEDS: NS IV 1000 ML 1,000 ML IV SCH (20:46)
[2022-02-07] MEDS: RT-ALBUTEROL/IPRATROPIUM 3 ML (DUONEB) VIAL INH SCH (21:04)
[2022-02-07] MEDS ORDERED: ENOXAPARIN 40 MG/0.4 ML (LOVENOX) SYR SC SCH (21:45)
[2022-02-07] MEDS: inSUlin ASPART (NovoLOG) 1 UNIT/0.01 ML (CHARGE PER UNIT) SC SCH (22:18)
[2022-02-08] VITALS (14 sets, daily range): BP systolic 92–138; BP diastolic 53–83
[2022-02-08] MEDS: NS IV 1000 ML 1,000 ML IV SCH ×2 (02:52→10:23)
[2022-02-08 05:02] LABS: BASOPHILS # (AUTO) 0.1 10^3/uL (0.0-0.1); BASOPHILS % (AUTO) 0 % (0-10); EOSINOPHILS # (AUTO) 0.2 10^3/uL (0.0-0.3); EOSINOPHILS % (AUTO) 1 % (0-10); HEMATOCRIT 33 % (40-54); HEMOGLOBIN 10.5 g/dL (13.3-17.7); LYMPHOCYTES # (AUTO) 0.7 10^3/uL (1.0-4.0); LYMPHOCYTES % (AUTO) 3 % (12-44); MEAN CORPUSCULAR HEMOGLOBIN 30 pg (25-34); MEAN CORPUSCULAR HGB CONC 32 g/dL (32-36); MEAN CORPUSCULAR VOLUME 95 fL (80-99); MEAN PLATELET VOLUME 11.2 fL (9.0-12.2); MONOCYTES # (AUTO) 2.2 10^3/uL (0.0-1.0); MONOCYTES % (AUTO) 9 % (0-12); NEUTROPHILS # (AUTO) 21.2 10^3/uL (1.8-7.8); NEUTROPHILS % (AUTO) 86 % (42-75); PLATELET COUNT 195 10^3/uL (130-400); WHITE BLOOD COUNT 24.7 10^3/uL (4.3-11.0)
[2022-02-08 05:12] LABS: ALBUMIN 3.3 GM/DL (3.2-4.5)
[2022-02-08 05:14] LABS: CALCIUM 8.5 MG/DL (8.5-10.1)
[2022-02-08 05:15] LABS: TOTAL PROTEIN 5.9 GM/DL (6.4-8.2)
[2022-02-08 05:17] LABS: BILIRUBIN,TOTAL 0.5 MG/DL (0.1-1.0)
[2022-02-08 05:18] LABS: PHOSPHORUS 2.9 MG/DL (2.3-4.7)
[2022-02-08 05:19] LABS: CREATININE SERUM 2.41 MG/DL (0.60-1.30)
[2022-02-08 05:22] LABS: MAGNESIUM 1.3 MG/DL (1.6-2.4)
[2022-02-08] MEDS: inSUlin ASPART (NovoLOG) 1 UNIT/0.01 ML (CHARGE PER UNIT) SC SCH ×2 (05:43→11:46)
[2022-02-08] MEDS ORDERED: MAGNESIUM 1 GM/100 ML IVPB 100 ML IV SCH (06:00)
[2022-02-08] MEDS ORDERED: CEFEPIME 1,000 MG/NS 50 ML IVPB IV SCH ×2 (06:00)
[2022-02-08] MEDS ORDERED: POTASSIUM CL 10MEQ/50ML IVPB 50 ML IV SCH (06:00)
[2022-02-08] MEDS ORDERED: KCL 20 MEQ TAB (K-DUR) PO SCH (06:00)
--- NOTE | 2022-02-08 07:33 | History & Physical ---
SHABNAM JOY 02/08/22 0733: History of Present Illness History of Present Illness Reason for visit/HPI Cash Tolentino is a 76y/o M w/ a PMH of DM type 2, CAD, and schizophrenia who presented to the ER last night due to generalized weakness. [facility] to staff noticing that pt had increased weakness. Pt states that he has had a nonproductive cough for about 3 weeks that has not improved. According to ER documentation, it was reported that his legs were weak and wouldn't hold him. On arrival to ER his SpO2 was 88%. He does not wear O2 at home. This morning he states that he feels tired and has not been able to sleep well over the 3 weeks that he has had a cough. Denies any SOB, fever, chills. Has been vaccinated from COVID and his COVID test at [facility] was negative. Date of Admission Feb 07, 2022 at 19:50 Date Seen by a Provider: Feb 08, 2022 Time Seen by a Provider: 06:42 I consulted on this patient on 02/08/22 07:25 Attending Physician Osiris Gunn DO Admitting Physician Admitting Physician: Julieta Snyder MD Attending Physician: Julieta Snyder MD Consult Allergies and Home Medications Allergies Coded Allergies: No Known Drug Allergies (Verified , 10/23/08) Patient Home Medication List Home Medication List Reviewed: Yes Atorvastatin Calcium (Atorvastatin Calcium) 10 Mg Tablet, 10 MG PO MoWeFr, (Reported) Entered as Reported by: LUCERO MAYNARD on 03/18/211320 Last Action: Held Cholecalciferol (Vitamin D3) (Vitamin D3) 50 Mcg Tablet, 50 MCG PO DAILY, (Reported) Entered as Reported by: LUCERO MAYNARD on 03/18/211320 Last Action: Held Docusate Sodium (Docusate Sodium) 100 Mg Tablet, 100 MG PO DAILY, (Reported) Entered as Reported by: LUCERO MAYNARD on 03/18/211320 Last Action: Held Fluvoxamine Maleate (Fluvoxamine Maleate) 100 Mg Tablet, 100 MG PO BID, (Reported) Entered as Reported by: LUCERO MAYNARD on 03/18/211320 Last Action: Converted Gabapentin (Gabapentin) 400 Mg Capsule, 400 MG PO DAILY, (Reported) Entered as Reported by: LUCERO MAYNARD on 03/18/211320 Last Action: Continued Insulin Aspart (Novolog Flexpen) 300 Units/3 Ml Solution, 10 UNITS SQ BIDAC, (Reported) Entered as Reported by: LUCERO MAYNARD on 03/18/211320 Last Action: Held Insulin Detemir (Levemir Flextouch) 100 Unit/1 Ml Insuln.pen, 16 UNIT SQ HS, (Reported) Entered as Reported by: LUCERO MAYNARD on 03/18/211320 Loratadine (Loratadine) 10 Mg Tablet, 10 MG PO BID, (Reported) Entered as Reported by: LUCERO MAYNARD on 03/18/211320 Last Action: Held Melatonin/Pyridoxine HCl (B6) (Melatonin 3 mg Tablet) 1 Each Tablet, 3 MG PO HS, (Reported) Entered as Reported by: LUCERO MAYNARD on 03/18/211320 Last Action: Held Multivits,Ca,Minerals/Iron/FA (Thera M Plus Tablet) 1 Each Tablet, 1 EACH PO DAILY, (Reported) Entered as Reported by: LUCERO MAYNARD on 03/18/211320 Last Action: Held Olanzapine (Olanzapine) 5 Mg Tablet, 5 MG PO BID, (Reported) Entered as Reported by: LUCERO MAYNARD on 03/18/211320 Last Action: Continued Wiley-3 Fatty Acids/Fish Oil (Fish Oil 1,000 mg Softgel) 1 Each Capsule, 1 EACH PO DAILY, (Reported) Entered as Reported by: LUCERO MAYNARD on 03/18/211320 Last Action: Held Discontinued Medications Albuterol Sulfate (Albuterol Sulfate) 2.5 Mg/3 Ml Vial.neb, 2.5 MG INH Q4H PRN for WHEEZING, (Reported) Entered as Reported by: LUCERO MAYNARD on 03/18/211320 Last Action: Discontinued Hydrocodone/Acetaminophen (Hydrocodon-Acetamin 7.5-325/15 ML) 15 Ml Solution, 2 TSP PO Q4H PRN for PAIN-MODERATE (5-7) Prescribed by: GOLDIE SHULTZ on 04/17/21 1020 Last Action: Discontinued Pantoprazole Sodium (Pantoprazole Sodium) 40 Mg Tablet.dr, 40 MG PO DAILY, (Reported) Entered as Reported by: LUCERO MAYNARD on 03/18/21 1321 Last Action: Discontinued [Xylocaine Viscous 2%] , 1 TSP PO UD PRN for PAIN-MILD (1-4) Prescribed by: GOLDIE SHULTZ on 04/17/21 1020 Last Action: Discontinued Past Xkynssg-Lxrkkw-Vfmecg Hx Patient Social History Employed/Student: retired Tobacco Use?: No Smokeless Tobacco Frequency: Former User Substance use?: No Alcohol Use?: No Immunizations Up To Date Date of Influenza Vaccine: May 02, 2020 First/Initial COVID19 Vaccinat: 08/22 Second COVID19 Vaccination Adarsh: 08/22 Seasonal Allergies Seasonal Allergies: No Current Status Communicates: Verbally Primary Language: [place] Preferred Spoken Language: [place] Island[place] Is interpretation needed?: No Sensory deficits: Vision impairment Implanted or Applied Medical D: None Past Medical History Surgeries: Orthopedic UTI-Chronic Chronic Constipation, Ulcer Diabetes, Non-Insulin dep Anxiety, Schizophrenia Blood Disorders: No Adverse Reaction/Blood Tranf: No Family Medical History Patient reports no known family medical history. No Pertinent Family Hx Review of Systems Constitutional: No chills, No fever; malaise EENTM: No eye pain, No vision loss Respiratory: cough; No short of breath Cardiovascular: No chest pain, No palpitations Gastrointestinal: No abdominal pain, No nausea, No vomiting Genitourinary: No dysuria, No hematuria Musculoskeletal: back pain (chronic); No joint pain, No neck pain Psychiatric/Neurological: Denies Numbness, Denies Paresthesia Physical Exam Vital Signs Vital Signs - First Documented 02/07/22 02/07/22 02/07/22 17:10 18:35 20:31 Temp 37.2 Pulse 97 Resp 22 B/P (MAP) 86/46 Pulse Ox 94 O2 Delivery Nasal Cannula O2 Flow Rate 2.00 FiO2 28 Capillary Refill : Less Than 3 Seconds Height, Weight, BMI Height: 6'0.00" Weight: 205lbs. 0.0oz. 92.563612wp; 27.17 BMI Method:Estimated General Appearance: No Apparent Distress, WD/WN Neck: Non Tender, Supple Respiratory: Decreased Breath Sounds (on right), Other (course breath sounds) Cardiovascular: No Murmur, Normal Peripheral Pulses, Tachycardia Gastrointestinal: Non Tender, Soft Extremity: Non Tender, No Calf Tenderness Neurologic/Psychiatric: Alert, Oriented x3, Other (tremor in jaw) Skin: Normal Color, Warm/Dry Lymphatic: No Adenopathy Assessment/Plan Assessment and Plan Sepsis likely due to pneumonia -SIRS positive w/ CXR done yesterday showing infiltrate in right middle lung suspicious for pneumonia according to radiology -started on cefepime (day 2) -WBC of 24.7 today, slightly increased from 24 last night -procal of 6.47, lactic acid was 2.37 at initial presentation but decreased to 0.88 on next check -receiving duoneb treatments -IV NS at 150mL/hr -currently on supplemental O2 via NC at 4L -consult eICU -incentive spirometer at bedside, instructed pt about importance of frequent use -continue current monitoring Anxiety/Schizophrenia -restart home olanzapine Diabetes mellitus type 2 -on sliding scale A -diabetic diet Chronic kidney disease -BUN on 43 and Cr of 2.41 today -reviewed historic BUN/Cr levels and these are in line with levels at last visit -continue to monitor for worsening kidney function GERD -start protonix DVT prophylaxis -start lovenox Admission Diagnosis Sepsis likely due to pneumonia Anxiety/Schizophrenia Diabetes mellitus type 2 Chronic kidney disease GERD JULIETA SNYDER MD 02/08/22 7480: History of Present Illness History of Present Illness Reason for visit/HPI Mr. Tolentino is a 76 y/o male who is a clinic patient of Dr. Gunn for whom I am party plan sales consultant today. Cash reports that he has been coughing "for a week" and was becoming increasingly weak with falling episodes in his room at [facility]. The retirement called this newswriter yesterday afternoon reporting that Cash had exited his room, walked to the nurses station, told them he was not feeling well, and "crumpled". The staff reports that his oxygen was in the 80's, he had a fever, and had fallen 3-4 times in the past week as well as not feeling well for the past 2 weeks. Cash was transported by their transport team to the ER where he was found to be septic with a fever, hypoxia, hypotension, and he was admitted to the icu after appropriate ER management with fluids, antibiotics, central line placement and a consult to EICU. Date of Admission 7/9/22 Date Seen by a Provider: Feb 08, 2022 Time Seen by a Provider: 09:00 Attending Physician Osiris Gunn DO Admitting Physician Julieta Snyder MD Consult EICU Allergies and Home Medications Allergies Coded Allergies: No Known Drug Allergies (Verified , 10/23/08) Patient Home Medication List Home Medication List Reviewed: Yes Atorvastatin Calcium (Atorvastatin Calcium) 10 Mg Tablet, 10 MG PO MoWeFr, (Reported) Entered as Reported by: LUCERO MAYNARD on 03/18/211320 Last Action: Held Cholecalciferol (Vitamin D3) (Vitamin D3) 50 Mcg Tablet, 50 MCG PO DAILY, (Reported) Entered as Reported by: LUCERO MAYNARD on 03/18/211320 Last Action: Held Docusate Sodium (Docusate Sodium) 100 Mg Tablet, 100 MG PO DAILY, (Reported) Entered as Reported by: LUCERO MAYNARD on 03/18/211320 Last Action: Held Fluvoxamine Maleate (Fluvoxamine Maleate) 100 Mg Tablet, 100 MG PO BID, (Reported) Entered as Reported by: LUCERO MAYNARD on 03/18/211320 Last Action: Converted Gabapentin (Gabapentin) 400 Mg Capsule, 400 MG PO DAILY, (Reported) Entered as Reported by: LUCERO MAYNARD on 03/18/211320 Last Action: Continued Insulin Aspart (Novolog Flexpen) 300 Units/3 Ml Solution, 10 UNITS SQ BIDAC, (Reported) Entered as Reported by: LUCERO MAYNARD on 03/18/211320 Last Action: Held Insulin Detemir (Levemir Flextouch) 100 Unit/1 Ml Insuln.pen, 16 UNIT SQ HS, (Reported) Entered as Reported by: LUCERO MAYNARD on 03/18/211320 Loratadine (Loratadine) 10 Mg Tablet, 10 MG PO BID, (Reported) Entered as Reported by: LUCERO MAYNARD on 03/18/211320 Last Action: Held Melatonin/Pyridoxine HCl (B6) (Melatonin 3 mg Tablet) 1 Each Tablet, 3 MG PO HS, (Reported) Entered as Reported by: ULCERO MAYNARD on 03/18/211320 Last Action: Held Multivits,Ca,Minerals/Iron/FA (Thera M Plus Tablet) 1 Each Tablet, 1 EACH PO DAILY, (Reported) Entered as Reported by: LUCERO MAYNARD on 03/18/211320 Last Action: Held Olanzapine (Olanzapine) 5 Mg Tablet, 5 MG PO BID, (Reported) Entered as Reported by: LUCERO MAYNARD on 03/18/211320 Last Action: Continued Wiley-3 Fatty Acids/Fish Oil (Fish Oil 1,000 mg Softgel) 1 Each Capsule, 1 EACH PO DAILY, (Reported) Entered as Reported by: LUCERO MAYNARD on 03/18/211320 Last Action: Held Discontinued Medications Albuterol Sulfate (Albuterol Sulfate) 2.5 Mg/3 Ml Vial.neb, 2.5 MG INH Q4H PRN for WHEEZING, (Reported) Entered as Reported by: LUCERO MAYNARD on 03/18/211320 Last Action: Discontinued Hydrocodone/Acetaminophen (Hydrocodon-Acetamin 7.5-325/15 ML) 15 Ml Solution, 2 TSP PO Q4H PRN for PAIN-MODERATE (5-7) Prescribed by: GOLDIE SHULTZ on 04/17/21 1020 Last Action: Discontinued Pantoprazole Sodium (Pantoprazole Sodium) 40 Mg Tablet.dr, 40 MG PO DAILY, (Reported) Entered as Reported by: LUCERO MAYNARD on 03/18/211320 Last Action: Discontinued [Xylocaine Viscous 2%] , 1 TSP PO UD PRN for PAIN-MILD (1-4) Prescribed by: GOLDIE SHULTZ on 04/17/21 1020 Last Action: Discontinued Past Djgaxmz-Hibyit-Sgjiar Hx Patient Social History Marrital Status: single Number of Children: 0 Number of living children: 0 Living Status: lives at [facility] Employed/Student: retired Tobacco Use?: No Smokeless Tobacco Frequency: Former User Use of E-Cig and/or Vaping dev: No Substance use?: No Alcohol Use?: No Pt feels they are or have been: No Seasonal Allergies Seasonal Allergies: Yes Current Status Advance Directives: Yes Advance Directive Location: on retirement records Communicates: Verbally Primary Language: [place] Preferred Spoken Language: [place] Sensory deficits: Vision impairment Past Medical History Surgeries: Orthopedic (left upper arm fracture s/p surgical fixation) Currently Using CPAP: No Currently Using BIPAP: No Palpitations Sexually Transmitted Disease: No HIV/AIDS: No UTI-Chronic Gastrointestinal Bleed, Chronic Constipation, Ulcer Arthritis Diabetes, Insulin dep Loss of Vision: Bilateral Hearing Impairment: Denies Oral Did You Recieve Any Treatments: Yes What Type of Treatment Did You: Surgical Intervention (partial left glossectomy with primary repair) Sleep Difficulties, Anxiety, Schizophrenia Blood Disorders: No Adverse Reaction/Blood Tranf: No Family Medical History Reviewed and Corrections made Patient reports no known family medical history. No Pertinent Family Hx (pt does not report any known family history) Review of Systems Constitutional: No chills; fever, malaise EENTM: No vision loss, No hoarseness, No mouth pain, No throat pain Respiratory: cough, dyspnea on exertion, short of breath Cardiovascular: no symptoms reported; No chest pain, No palpitations Gastrointestinal: No abdominal pain, No dysphagia, No nausea, No vomiting Genitourinary: No dysuria, No hematuria; other (poor output per staff this morning) Musculoskeletal: back pain (chronic); No joint pain, No muscle stiffness, No muscle weakness Skin: no symptoms reported Psychiatric/Neurological: Anxiety, Emotional Problems; Denies Headache, Denies Numbness; Tremors, Weakness All Other Systems Reviewed Negative Unless Noted: Yes Physical Exam General Appearance: No Apparent Distress, WD/WN HEENT: PERRL/EOMI Neck: Normal Inspection, Non Tender, Supple Respiratory: No Accessory Muscle Use, No Respiratory Distress, Crackles (from right mid lung to base, coarse crackles and wheezing), Decreased Breath Sounds (on right), Rhonci, Wheezing Cardiovascular: No Edema, No Murmur, Normal Peripheral Pulses, Tachycardia Gastrointestinal: Non Tender, Soft, Distended, Other (tympanitic over upper abdomen, dull umbilicus to suprapubic region) Rectal: Deferred Back: Normal Inspection, No CVA Tenderness, No Vertebral Tenderness Extremity: Normal Capillary Refill, Normal Inspection, Non Tender, No Calf Tenderness, No Pedal Edema, Other (gross derrangement of toes, plaquing of skin between toes and callus on plantar surface of left foot, and discoloration on plantar surface of digit #2 on right) Neurologic/Psychiatric: Alert, Oriented x3, Other (tremor in jaw, flat affect) Skin: Normal Color, Warm/Dry Lymphatic: No Adenopathy Assessment/Plan Assessment and Plan Sepsis with Lactic acidosis, elevated procalcitonin, elevated CRP Pneumonia Hypotension Urinary retention Leukocytosis Anemia Diabetes mellitus (insulin dependent) Chronic stage 4 renal failure Chronic Esophageal Reflux with hx of Aspiration Schizophrenia Anxiety Medication induced tremor Sepsis with Lactic acidosis, elevated procalcitonin, elevated CRP with Pneumonia and Hypotension CXR - IMPRESSION: 1. Focal consolidation in the right mid lung suspect for pneumonia. 2. Cardiomegaly and some central pulmonary venous congestion. 3. Abnormal positioning of the right internal jugular central venous catheter, as described. - pt admitted started on sepsis protocol, IV cefepime - fluids running at 150mL/hr - pt not on pressors at this time, will continue with fluids. -RT Mat protocol, duoneb tx, Oxygen via NC at 4 liters - added Aerobika as pt was having difficulty managing the incentive spirometer - repeat CXR in morning Urinary retention - campoverde to be placed today - review of past imaging showed hx of urinary bladder outlet obstruction. Leukocytosis - white count 24 on admission, at 24.7 this morning, repeat labs in AM. Anemia - anemia of chronic disease as well as pt was hydrated on admission - thus Hgb drop from 12.3 to 10.5, continue to monitor with repeat labs. Diabetes mellitus (insulin dependent) - sliding scale protocol. - monitor fsbs - wait to resume home medications until pt eating better. Hypomagnesemia - replenish per ICU lytes protocols Chronic stage 4 renal failure - supportive care, renal adjust meds Chronic Esophageal Reflux with hx of Aspiration - pt had Barium swallow last year which showed mild aspiration, may benefit from speech eval during this hospitalization Schizophrenia and Anxiety - resume home olanzepine and fluvoxamine regimen Medication induced tremor - supportive care, consider cogentin dvt prophylaxis with lovenox and scd gi prophylaxis with ppi and probiotics Admission Diagnosis Sepsis with Lactic acidosis, elevated procalcitonin, elevated CRP Pneumonia Hypotension Urinary retention Leukocytosis Anemia Diabetes mellitus (insulin dependent) Chronic stage 4 renal failure Chronic Esophageal Reflux with hx of Aspiration Schizophrenia Anxiety Medication induced tremor Admission Status: Inpatient Order (span 2 midnights) Reason for Inpatient Admission: inpatient admission for sepsis, will require at least 2-4 midnights in the hospital for stabilization and further treatment modifications Supervisory-Addendum Brief Verification & Attestation Participated in pt care: history, MDM, physical Personally performed: exam, history, MDM, supervision of care Care discussed with: Medical Student Procedures: n/a Results interpretation: Verified all documentation agree with excellent student note - see my documentation for details SHABNAM JOY Feb 08, 2022 07:33 JULIETA SNYDER MD Feb 08, 2022 09:17
[2022-02-08] MEDS: RT-ALBUTEROL/IPRATROPIUM 3 ML (DUONEB) VIAL INH SCH ×2 (07:40→10:47)
[2022-02-08] MEDS ORDERED: MAGNESIUM 1 GM/100 ML IVPB 100 ML IV ONE (09:15)
[2022-02-08] MEDS ORDERED: LIDOCAINE UROJET 2% GEL 10 ML PKG TOP ONE (09:15)
[2022-02-08] MEDS ORDERED: OLANZapine 5 MG (ZyPREXA) TAB PO SCH (09:15)
[2022-02-08] MEDS ORDERED: OLANZapine 2.5 MG (ZyPREXA) TAB PO SCH (09:18)
--- NOTE | 2022-02-08 09:58 | Diagnostic Imaging Report ---
EXAM: CHEST PA/LAT (2 VIEW) INDICATION: Pneumonia. COMPARISON: Chest radiograph 05/30/2018. FINDINGS: New dense airspace opacity in the right lung base. Cardiomegaly with mild pulmonary vascular congestion. No pleural effusion or pneumothorax. Right IJ CVC tip mid SVC. IMPRESSION: 1. Airspace opacity in the right lung base suspicious for pneumonitis. Recommend follow-up to resolution. 2. Cardiomegaly with mild pulmonary vascular congestion. Dictated by: Dictated on workstation # [id number]
--- NOTE | 2022-02-08 10:36 | Tele-ICU Consult ---
History of Present Illness History of Present Illness Date Seen by Provider: Feb 08, 2022 Time Seen by Provider: 10:36 Date of Admission (Tele-ICU Physician , consultation) Available chart/ vitals / labs / Images reviewed H&P is from ER notes Patient's information available about PMH, Shx, Fhx allergy reviewed in EMR. ROS as per chart and RN report Now in ICU, hemodynamically stable Video assessment done using teleICU camera, rest of exam as per RN Discussed with RN. Consultants: Hospital course: 02/07) 76/M- Weakness x 3 wks at [facility]. Hypoxic, Hypotensive, Oxymask, 2 liters IV Bolus. DNR papers from [facility]. A/P PNA RUL /RML ( neg covid and flu ) - abx cefepime , await cx - hypoxia 2 L o2 - ? aspiration - to be monitored Sepsis - Tx in ER 2L NS - responded to fluid resuscitation - follow on ABX CKD - cr satble DM - ISS schizophrenia -olanzapine resumed Lines : r IJ 02/07 (Central Line Necessity Reviewed) Silverio: void, catheter to place 02/08 OG: Nutrition: Analgesia: Anxiety/ delirium VTE Prophylaxis: philomena 40 Stress Ulcer Prophylaxis: na Plans in collaboration with bedside consultants and IM MDs. Discussed with RN to reach out if any questions or concerns A total of 31 minutes of critical care time was devoted to this patient today, required to treat and/or prevent further deterioration of critical care condition ( as above ) . Allergies and Home Medications Allergies Coded Allergies: No Known Drug Allergies (Verified , 10/23/08) Home Medications Atorvastatin Calcium 10 Mg Tablet, 10 MG PO MoWeFr, (Reported) Cholecalciferol (Vitamin D3) 50 Mcg Tablet, 50 MCG PO DAILY, (Reported) Docusate Sodium 100 Mg Tablet, 100 MG PO DAILY, (Reported) Fluvoxamine Maleate 100 Mg Tablet, 100 MG PO BID, (Reported) Gabapentin 400 Mg Capsule, 400 MG PO DAILY, (Reported) Insulin Aspart 300 Units/3 Ml Solution, 10 UNITS SQ BIDAC, (Reported) Insulin Detemir 100 Unit/1 Ml Insuln.pen, 16 UNIT SQ HS, (Reported) Loratadine 10 Mg Tablet, 10 MG PO BID, (Reported) Melatonin/Pyridoxine HCl (B6) 1 Each Tablet, 3 MG PO HS, (Reported) Multivits,Ca,Minerals/Iron/FA 1 Each Tablet, 1 EACH PO DAILY, (Reported) Olanzapine 5 Mg Tablet, 5 MG PO BID, (Reported) Alexander-3 Fatty Acids/Fish Oil 1 Each Capsule, 1 EACH PO DAILY, (Reported) Past Medical/Social/Family Hx Patient Social History Marrital Status: single Number of Children: 0 Number of living children: 0 Living Status: lives at [facility] Employed/Student: retired Tobacco Use?: No Smokeless Tobacco Frequency: Former User Use of E-Cig and/or Vaping dev: No Substance use?: No Alcohol Use?: No Pt stated abuse/neglect: No Immunizations Up To Date First/Initial COVID19 Vaccinat: 08/22 Second COVID19 Vaccination Adarsh: 08/22 Current Status Advance Directives: Yes Advance Directive Location: on correction records Communicates: Verbally Primary Language: Tunisian Preferred Spoken Language: Tunisian Is interpretation needed?: No Sensory deficits: Vision impairment Implanted or Applied Medical D: None Review of Systems Constitutional: chills Focused Exam Lactate Level 02/07/22 18:10: Lactic Acid Level 2.32*H 02/07/22 20:26: Lactic Acid Level 0.88 Height, Weight, BMI Height: 6'0.00" Weight: 205lbs. 0.0oz. 92.500905dr; 27.17 BMI Method:Estimated Time of Focused Exam: 18:05 Exam Exam Patient acknowledged, consented, and participated in this virtual visit which was conducted using real time audio/video Vital Signs Date Time Temp Pulse Resp B/P (MAP) Pulse Ox O2 Delivery O2 Flow Rate FiO2 02/08/22 10:00 112 25 129/83 (98) 93 Nasal Cannula 4.00 02/08/22 09:00 105 33 117/72 (87) 96 Nasal Cannula 4.00 02/08/22 08:00 Nasal Cannula 4.00 02/08/22 08:00 108 22 104/61 (75) 93 Nasal Cannula 4.00 02/08/22 07:00 100 02/08/22 07:00 99 19 104/63 (77) 91 Nasal Cannula 4.00 02/08/22 06:00 105 22 101/69 (80) 91 Nasal Cannula 4.00 02/08/22 05:00 104 25 108/77 (87) 92 Nasal Cannula 4.00 02/08/22 04:00 Nasal Cannula 4.00 02/08/22 04:00 36.2 02/08/22 04:00 92 23 109/65 (80) 90 Nasal Cannula 4.00 02/08/22 03:00 91 14 92/58 (69) 92 Nasal Cannula 4.00 02/08/22 02:00 84 18 104/65 (78) 94 Nasal Cannula 4.00 02/08/22 01:00 92 29 109/53 (71) 89 Nasal Cannula 4.00 02/08/22 00:48 93 02/08/22 00:00 96 28 109/65 (80) 88 Nasal Cannula 4.00 02/08/22 00:00 36.5 02/07/22 23:41 Nasal Cannula 4.00 02/07/22 23:00 81 31 125/58 (80) 92 Nasal Cannula 4.00 02/07/22 22:07 98 Nasal Cannula 4.00 02/07/22 22:00 89 25 93/51 (65) 94 Nasal Cannula 4.00 02/07/22 21:00 86 20 94/64 (74) 92 Nasal Cannula 4.00 02/07/22 20:49 Nasal Cannula 4.00 02/07/22 20:31 37.2 97 94 28 02/07/22 20:27 OxyMask 02/07/22 20:15 84 19 98/76 (83) 94 OxyMask 4.00 02/07/22 20:00 85 18 95/57 (70) 95 OxyMask 4.00 02/07/22 19:52 85 02/07/22 19:45 85 18 89/59 (69) 94 OxyMask 4.00 02/07/22 19:44 36.3 87 25 105/58 (74) 94 OxyMask 4.00 02/07/22 19:42 37.0 84 22 94/52 94 OxyMask 4.00 4.00 02/07/22 18:35 37.0 81 22 86/46 94 Nasal Cannula 4.00 4.00 02/07/22 18:20 93 Nasal Cannula 4.00 02/07/22 17:10 37.2 97 22 94 Nasal Cannula 2.00 I & O 02/08/22 06:59 Intake Total 2400 ml Output Total 625 ml Balance 1775 ml Height & Weight Height: 6'0.00" Weight: 205lbs. 0.0oz. 92.316486wh; 27.17 BMI Method:Estimated General Appearance: No Apparent Distress, WD/WN HEENT: PERRL/EOMI Neck: Normal Inspection, Non Tender, Supple Respiratory: No Accessory Muscle Use, No Respiratory Distress, Crackles (from right mid lung to base, coarse crackles and wheezing), Decreased Breath Sounds (on right), Rhonci, Wheezing Cardiovascular: No Edema, No Murmur, Normal Peripheral Pulses, Tachycardia Capillary Refill: Less Than 3 Seconds Peripheral Pulses: 2+ Radial Pulses (R), 2+ Radial Pulses (L) Extremity: Normal Capillary Refill, Normal Inspection, Non Tender, No Calf Tenderness, No Pedal Edema, Other (gross derrangement of toes, plaquing of skin between toes and callus on plantar surface of left foot, and discoloration on plantar surface of digit #2 on right) Neurologic/Psychiatric: Alert, Oriented x3, Other (tremor in jaw, flat affect) Skin: Normal Color, Warm/Dry Lymphatic: No Adenopathy Results Lab Laboratory Tests 02/07/22 17:22 02/08/22 04:55 Assessment/Plan Assessment/Plan 1 ELLEN CARRANZA MD Feb 08, 2022 10:36
[2022-02-08 10:47] LABS: BILIRUBIN,URINE NEGATIVE (NEGATIVE); CLARITY,URINE CLEAR; COLOR,URINE YELLOW; GLUCOSE, URINE (UA) 1+ (NEGATIVE); KETONES,URINE NEGATIVE (NEGATIVE); LEUKOCYTE ESTERASE ,URINE NEGATIVE (NEGATIVE); NITRITE,URINE NEGATIVE (NEGATIVE); PH,URINE 5.5 (5-9); PROTEIN,URINE NEGATIVE (NEGATIVE)
[2022-02-08 11:00] LABS: BACTERIA,URINE TRACE /HPF; SQUAMOUS EPITHELIAL CELL,UR 0-2 /HPF; WBC,URINE RARE /HPF
[2022-02-08] MEDS ORDERED: LACTOBACILLUS ACIDOPHILUS (PROBIOTIC) CAPSULE PO SCH (13:00)
--- NOTE | 2022-02-08 14:23 | Inpatient Code Blue ---
General Chief Complaint: General Problems/Pain Stated Complaint: PNEUMONIA RML,SEPSIS,DM Nursing Triage Note: LEONORA FROM [facility] WITH PT AT BEDSIDE, STATES PT HAS BEEN WEAK TODAY, COVID TEST NEGATIVE THIS MORNING, AROUND 1600 PT WAS TOO WEAK TO GET UP AND AROUND, NORMALLY WALKS FINE, 37.2 AT TRIAGE, RUNNY NOSE AND OCCATIONAL COUGH. PT ALERT X'S 4 History of Present Illness Date Seen by Provider: Feb 08, 2022 Time Seen by Provider: 14:12 Initial Comments I responded to patient's room as part of a CODE BLUE response. Upon my entry of the room, patient was found to be not breathing and in asystole on telemetry. Nursing staff confirmed that he has a DO NOT RESUSCITATE order. On examination there were no breath sounds and no respiratory effort. Patient was cyanotic. No carotid or radial pulse could be felt. No pulmonary or cardiac activity could be auscultated with stethoscope. Patient was pronounced at 1416. Dr. Snyder was notified. Allergies and Home Medications Allergies Coded Allergies: No Known Drug Allergies (Verified , 10/23/08) Patient Home Medication List Home Medication List Reviewed: Yes Atorvastatin Calcium (Atorvastatin Calcium) 10 Mg Tablet, 10 MG PO MoWeFr, (Reported) Entered as Reported by: LUCERO MAYNARD on 03/18/211320 Last Action: Held Cholecalciferol (Vitamin D3) (Vitamin D3) 50 Mcg Tablet, 50 MCG PO DAILY, (Reported) Entered as Reported by: LUCERO MAYNARD on 03/18/211320 Last Action: Held Docusate Sodium (Docusate Sodium) 100 Mg Tablet, 100 MG PO DAILY, (Reported) Entered as Reported by: LUCERO MAYNARD on 03/18/211320 Last Action: Held Fluvoxamine Maleate (Fluvoxamine Maleate) 100 Mg Tablet, 100 MG PO BID, (Reported) Entered as Reported by: LUCERO MAYNARD on 03/18/211320 Last Action: Converted Gabapentin (Gabapentin) 400 Mg Capsule, 400 MG PO DAILY, (Reported) Entered as Reported by: LUCERO MAYNARD on 03/18/211320 Last Action: Continued Insulin Aspart (Novolog Flexpen) 300 Units/3 Ml Solution, 10 UNITS SQ BIDAC, (Reported) Entered as Reported by: LUCERO MAYNARD on 03/18/211320 Last Action: Held Insulin Detemir (Levemir Flextouch) 100 Unit/1 Ml Insuln.pen, 16 UNIT SQ HS, (Reported) Entered as Reported by: LUCERO MAYNARD on 03/18/211320 Loratadine (Loratadine) 10 Mg Tablet, 10 MG PO BID, (Reported) Entered as Reported by: LUCERO MAYNARD on 03/18/211320 Last Action: Held Melatonin/Pyridoxine HCl (B6) (Melatonin 3 mg Tablet) 1 Each Tablet, 3 MG PO HS, (Reported) Entered as Reported by: LUCERO MAYNARD on 03/18/211320 Last Action: Held Multivits,Ca,Minerals/Iron/FA (Thera M Plus Tablet) 1 Each Tablet, 1 EACH PO DAILY, (Reported) Entered as Reported by: LUCERO MAYNARD on 03/18/211320 Last Action: Held Olanzapine (Olanzapine) 5 Mg Tablet, 5 MG PO BID, (Reported) Entered as Reported by: LUCERO MAYNARD on 03/18/211320 Last Action: Continued [place]-3 Fatty Acids/Fish Oil (Fish Oil 1,000 mg Softgel) 1 Each Capsule, 1 EACH PO DAILY, (Reported) Entered as Reported by: LUCERO MAYNARD on 03/18/211320 Last Action: Held Discontinued Medications Albuterol Sulfate (Albuterol Sulfate) 2.5 Mg/3 Ml Vial.neb, 2.5 MG INH Q4H PRN for WHEEZING, (Reported) Entered as Reported by: LUCERO MAYNARD on 03/18/211320 Last Action: Discontinued Hydrocodone/Acetaminophen (Hydrocodon-Acetamin 7.5-325/15 ML) 15 Ml Solution, 2 TSP PO Q4H PRN for PAIN-MODERATE (5-7) Prescribed by: GOLDIE SHULTZ on 04/17/21 1020 Last Action: Discontinued Pantoprazole Sodium (Pantoprazole Sodium) 40 Mg Tablet.dr, 40 MG PO DAILY, (Reported) Entered as Reported by: LUCERO MAYNARD on 03/18/211320 Last Action: Discontinued [Xylocaine Viscous 2%] , 1 TSP PO UD PRN for PAIN-MILD (1-4) Prescribed by: GOLDIE SHULTZ on 04/17/21 1020 Last Action: Discontinued Physical Exam Vital Signs Vital Signs - First Documented 02/07/22 02/07/22 02/07/22 17:10 18:35 20:31 Temp 37.2 Pulse 97 Resp 22 B/P (MAP) 86/46 Pulse Ox 94 O2 Delivery Nasal Cannula O2 Flow Rate 2.00 FiO2 28 Capillary Refill : Less Than 3 Seconds Height, Weight, BMI Height: 6'0.00" Weight: 205lbs. 0.0oz. [id number]; 27.17 BMI Method:Estimated General Appearance: other (Unresponsive, cyanotic) Respiratory: other (No respiratory effort, no breath sounds) Cardiovascular: other (No carotid or radial pulse, no heart sounds with auscultation, asystole on monitor) Gastrointestinal: soft; No distended Skin: cyanosis Procedures/Interventions Lumen: triple Central Line Procedure: betadine prep, sterile drapes applied, sterile dressing applied Position: internal jugular (R) Anesthesia: Lidocaine Volume Anesthetic (ccs): 4 Complications: initial line misplaced; re-wired and re-oriented Post Position: sutured, good blood return, position confirmed w/ CXR Date of ETT Placement: Sep 17, 2016 Time of ETT Placement: 1530 Progress/Results/Core Measures Results/Orders Lab Results Laboratory Tests Test 02/07/22 17:22 02/07/22 18:10 02/07/22 20:26 02/07/22 22:18 Range/Units White Blood Count 24.0 H 4.3-11.0 10^3/uL Red Blood Count 4.06 L 4.30-5.52 10^6/uL Hemoglobin 12.3 L 13.3-17.7 g/dL Hematocrit 38 L 40-54 % Mean Corpuscular Volume 93 80-99 fL Mean Corpuscular Hemoglobin 30 25-34 pg Mean Corpuscular Hemoglobin Concent 33 32-36 g/dL Red Cell Distribution Width 14.6 H 10.0-14.5 % Platelet Count 216 130-400 10^3/uL Mean Platelet Volume 12.1 9.0-12.2 fL Immature Granulocyte % (Auto) 1 % Neutrophils (%) (Auto) 93 H 42-75 % Lymphocytes (%) (Auto) 2 L 12-44 % Monocytes (%) (Auto) 4 0-12 % Eosinophils (%) (Auto) 0 0-10 % Basophils (%) (Auto) 0 0-10 % Neutrophils # (Auto) 22.2 H 1.8-7.8 10^3/uL Lymphocytes # (Auto) 0.5 L 1.0-4.0 10^3/uL Monocytes # (Auto) 1.0 0.0-1.0 10^3/uL Eosinophils # (Auto) 0.0 0.0-0.3 10^3/uL Basophils # (Auto) 0.0 0.0-0.1 10^3/uL Immature Granulocyte # (Auto) 0.2 H 0.0-0.1 10^3/uL Neutrophils % (Manual) 86 % Lymphocytes % (Manual) 4 % Monocytes % (Manual) 5 % Band Neutrophils 5 % Blood Morphology Comment NORMAL Prothrombin Time 14.1 12.2-14.7 SEC INR Comment 1.1 0.8-1.4 Activated Partial Thromboplast Time 28 24-35 SEC Sodium Level 134 L 135-145 MMOL/L Potassium Level 5.5 H 3.6-5.0 MMOL/L Chloride Level 100 98-107 MMOL/L Carbon Dioxide Level 19 L 21-32 MMOL/L Anion Gap 15 H 5-14 MMOL/L Blood Urea Nitrogen 46 H 7-18 MG/DL Creatinine 2.65 H 0.60-1.30 MG/DL Estimat Glomerular Filtration Rate 24 BUN/Creatinine Ratio 17 Glucose Level 312 H 70-105 MG/DL Calcium Level 9.7 8.5-10.1 MG/DL Corrected Calcium 9.6 8.5-10.1 MG/DL Total Bilirubin 0.6 0.1-1.0 MG/DL Aspartate Amino Transf (AST/SGOT) 29 5-34 U/L Alanine Aminotransferase (ALT/SGPT) 31 0-55 U/L Alkaline Phosphatase 85 40-136 U/L C-Reactive Protein High Sensitivity 13.57 H 0.00-0.50 MG/DL Total Protein 7.2 6.4-8.2 GM/DL Albumin 4.1 3.2-4.5 GM/DL Procalcitonin 6.47 H <0.10 NG/ML Lactic Acid Level 2.32 *H 0.88 0.50-2.00 MMOL/L Influenza Type A (RT-PCR) Not Detected Not Detecte Influenza Type B (RT-PCR) Not Detected Not Detecte SARS-CoV-2 RNA (RT-PCR) Not Detected Not Detecte Glucometer 176 H 70-110 MG/DL Test 02/08/22 04:55 02/08/22 10:40 02/08/22 11:41 Range/Units White Blood Count 24.7 H 4.3-11.0 10^3/uL Red Blood Count 3.45 L 4.30-5.52 10^6/uL Hemoglobin 10.5 L 13.3-17.7 g/dL Hematocrit 33 L 40-54 % Mean Corpuscular Volume 95 80-99 fL Mean Corpuscular Hemoglobin 30 25-34 pg Mean Corpuscular Hemoglobin Concent 32 32-36 g/dL Red Cell Distribution Width 15.0 H 10.0-14.5 % Platelet Count 195 130-400 10^3/uL Mean Platelet Volume 11.2 9.0-12.2 fL Immature Granulocyte % (Auto) 1 % Neutrophils (%) (Auto) 86 H 42-75 % Lymphocytes (%) (Auto) 3 L 12-44 % Monocytes (%) (Auto) 9 0-12 % Eosinophils (%) (Auto) 1 0-10 % Basophils (%) (Auto) 0 0-10 % Neutrophils # (Auto) 21.2 H 1.8-7.8 10^3/uL Lymphocytes # (Auto) 0.7 L 1.0-4.0 10^3/uL Monocytes # (Auto) 2.2 H 0.0-1.0 10^3/uL Eosinophils # (Auto) 0.2 0.0-0.3 10^3/uL Basophils # (Auto) 0.1 0.0-0.1 10^3/uL Immature Granulocyte # (Auto) 0.2 H 0.0-0.1 10^3/uL Sodium Level 139 135-145 MMOL/L Potassium Level 5.0 3.6-5.0 MMOL/L Chloride Level 107 98-107 MMOL/L Carbon Dioxide Level 18 L 21-32 MMOL/L Anion Gap 14 5-14 MMOL/L Blood Urea Nitrogen 43 H 7-18 MG/DL Creatinine 2.41 H 0.60-1.30 MG/DL Estimat Glomerular Filtration Rate 27 BUN/Creatinine Ratio 18 Glucose Level 186 H 70-105 MG/DL Calcium Level 8.5 8.5-10.1 MG/DL Corrected Calcium 9.1 8.5-10.1 MG/DL Phosphorus Level 2.9 2.3-4.7 MG/DL Magnesium Level 1.3 L 1.6-2.4 MG/DL Total Bilirubin 0.5 0.1-1.0 MG/DL Aspartate Amino Transf (AST/SGOT) 24 5-34 U/L Alanine Aminotransferase (ALT/SGPT) 25 0-55 U/L Alkaline Phosphatase 62 40-136 U/L Total Protein 5.9 L 6.4-8.2 GM/DL Albumin 3.3 3.2-4.5 GM/DL Urine Color YELLOW Urine Clarity CLEAR Urine pH 5.5 5-9 Urine Specific [place] 1.010 L 1.016-1.022 Urine Protein NEGATIVE NEGATIVE Urine Glucose (UA) 1+ H NEGATIVE Urine Ketones NEGATIVE NEGATIVE Urine Nitrite NEGATIVE NEGATIVE Urine Bilirubin NEGATIVE NEGATIVE Urine Urobilinogen 0.2 < = 1.0 MG/DL Urine Leukocyte Esterase NEGATIVE NEGATIVE Urine RBC (Auto) TRACE-I H NEGATIVE Urine RBC NONE /HPF Urine WBC RARE /HPF Urine Squamous Epithelial Cells 0-2 /HPF Urine Crystals NONE /LPF Urine Bacteria TRACE /HPF Urine Casts NONE /LPF Urine Mucus NEGATIVE /LPF Urine Culture Indicated CULTURE PENDING Glucometer 276 H 70-110 MG/DL My Orders Orders - JOJO MENCHACA MD Ekg Tracing (02/07/22 17:21) Medications Given in ED Current Medications Medications Dose Ordered Sig/Aron Route Start Time Stop Time Status Last Admin Dose Admin Lidocaine HCl 10 ml ONCE ONCE TOP 02/08/22 09:15 02/08/22 09:17 DC 02/08/22 10:23 10 ML Magnesium Sulfate/ Dextrose 100 ml @ 100 mls/hr ONCE ONCE IV 02/08/22 09:15 02/08/22 10:14 DC 02/08/22 10:23 100 MLS/HR Vital Signs/I&O 02/07/22 02/07/22 02/07/22 02/07/22 17:10 18:20 18:35 19:42 Temp 37.2 37.0 37.0 Pulse 97 81 84 Resp 22 22 22 B/P (MAP) 86/46 94/52 Pulse Ox 94 93 94 94 O2 Delivery Nasal Cannula Nasal Cannula Nasal Cannula OxyMask O2 Flow Rate 2.00 4.00 4.00 4.00 4.00 4.00 02/07/22 02/07/22 02/07/22 02/07/22 19:44 19:45 19:52 20:00 Temp 36.3 Pulse 87 85 85 85 Resp 25 18 18 B/P (MAP) 105/58 (74) 89/59 (69) 95/57 (70) Pulse Ox 94 94 95 O2 Delivery OxyMask OxyMask OxyMask O2 Flow Rate 4.00 4.00 4.00 02/07/22 02/07/22 02/07/22 02/07/22 20:15 20:27 20:31 20:49 Temp 37.2 Pulse 84 97 Resp 19 B/P (MAP) 98/76 (83) Pulse Ox 94 94 O2 Delivery OxyMask OxyMask Nasal Cannula O2 Flow Rate 4.00 4.00 28 02/07/22 02/07/22 02/07/22 02/07/22 21:00 22:00 22:07 23:00 Pulse 86 89 81 Resp 20 25 31 B/P (MAP) 94/64 (74) 93/51 (65) 125/58 (80) Pulse Ox 92 94 98 92 O2 Delivery Nasal Cannula Nasal Cannula Nasal Cannula Nasal Cannula O2 Flow Rate 4.00 4.00 4.00 4.00 02/07/22 02/08/22 02/08/22 02/08/22 23:41 00:00 00:00 00:48 Temp 36.5 Pulse 96 93 Resp 28 B/P (MAP) 109/65 (80) Pulse Ox 88 O2 Delivery Nasal Cannula Nasal Cannula O2 Flow Rate 4.00 4.00 02/08/22 02/08/22 02/08/22 02/08/22 01:00 02:00 03:00 04:00 Pulse 92 84 91 92 Resp 29 18 14 23 B/P (MAP) 109/53 (71) 104/65 (78) 92/58 (69) 109/65 (80) Pulse Ox 89 94 92 90 O2 Delivery Nasal Cannula Nasal Cannula Nasal Cannula Nasal Cannula O2 Flow Rate 4.00 4.00 4.00 4.00 7/10/22 02/08/22 02/08/22 02/08/22 04:00 04:00 05:00 06:00 Temp 36.2 Pulse 104 105 Resp 22 B/P (MAP) 108/77 (87) 101/69 (80) Pulse Ox 92 91 O2 Delivery Nasal Cannula Nasal Cannula Nasal Cannula O2 Flow Rate 4.00 4.00 4.00 02/08/22 02/08/22 02/08/22 02/08/22 07:00 07:00 08:00 08:00 Pulse 99 100 108 Resp 22 B/P (MAP) 104/63 (77) 104/61 (75) Pulse Ox 91 93 O2 Delivery Nasal Cannula Nasal Cannula Nasal Cannula O2 Flow Rate 4.00 4.00 4.00 02/08/22 02/08/22 02/08/22 02/08/22 09:00 10:00 10:49 10:54 Pulse 105 112 Resp 33 25 B/P (MAP) 117/72 (87) 129/83 (98) Pulse Ox 96 93 95 O2 Delivery Nasal Cannula Nasal Cannula Nasal Cannula Nasal Cannula O2 Flow Rate 4.00 4.00 3.00 2.00 02/08/22 02/08/22 02/08/22 02/08/22 11:00 12:00 13:00 13:00 Pulse 98 99 99 102 Resp 19 32 31 B/P (MAP) 129/83 (98) 132/78 (96) 138/79 (98) Pulse Ox 93 90 91 O2 Delivery Nasal Cannula Nasal Cannula Nasal Cannula O2 Flow Rate 2.00 2.00 2.00 02/08/22 00:00 Intake Total 2300 ml Balance 2300 ml Blood Pressure Mean: 98 JOJO MENCHACA MD Feb 08, 2022 14:23
[2022-02-08] MEDS ORDERED: ENOXAPARIN INJECTION 30 MG/0.3 ML SYR SC SCH (21:00)
[2022-02-08] MEDS ORDERED: NON-FORMULARY MEDICATION 1 EA EA (Fluvoxamine Maleate 100 MG) PO SCH (21:00)
[2022-02-09] MEDS ORDERED: GABAPENTIN 400 MG (NEURONTIN) CAP PO SCH (09:00)
== END 2022-02-08 15:55 | disposition expired | DRG 871 ==
LOC: EDUNIT# 17:00 → ER 17:01 → ICU 19:50
PROVIDERS: ADMIT Family Medicine; ATTEND Family Medicine
PROC: 02HV33Z Insertion of Infusion Device into Superior Vena Cava, Percutaneous Approach (ICD-10-PCS; principal; 2022-02-07)
DX: A41.9 Sepsis, unspecified organism (principal); J18.9 Pneumonia, unspecified organism; J44.0 Chronic obstructive pulmonary disease with (acute) lower respiratory infection; N18.4 Chronic kidney disease, stage 4 (severe); F42.9 Obsessive-compulsive disorder, unspecified; F20.9 Schizophrenia, unspecified; Z66 Do not resuscitate; Z79.4 Long term (current) use of insulin; Z79.899 Other long term (current) drug therapy; F41.9 Anxiety disorder, unspecified; I25.10 Atherosclerotic heart disease of native coronary artery without angina pectoris; K21.9 Gastro-esophageal reflux disease without esophagitis; C02.9 Malignant neoplasm of tongue, unspecified; N18.9 Chronic kidney disease, unspecified; I12.9 Hypertensive chronic kidney disease with stage 1 through stage 4 chronic kidney disease, or unspecified chronic kidney disease; E11.22 Type 2 diabetes mellitus with diabetic chronic kidney disease; I95.9 Hypotension, unspecified; R33.9 Retention of urine, unspecified; D72.829 Elevated white blood cell count, unspecified; D63.1 Anemia in chronic kidney disease; G25.1 Drug-induced tremor; E83.42 Hypomagnesemia; Z20.822 Contact with and (suspected) exposure to COVID-19; Z99.81 Dependence on supplemental oxygen; R09.02 Hypoxemia
CPT/HCPCS: 36415; 71045; 71046; 80053; 81000; 82947; 83605; 83735; 84100; 84145; 85007; 85025; 85027; 85610; 85730; 86141; 87040; 87081; 87088; 87636; 93005; 94640